=== PATIENT | male | born 1935 | race Caucasian/White ===

== ENCOUNTER 2018-03-11 09:13 | Inpatient (IN) | payer OTHER ==
[2018-03-11 09:35] LABS: Absolute Lymphocytes (CBC) 0.9 K/uL (0.7-4.9); Absolute Monocytes 0.8 K/uL (0.1-1.3); Absolute Neutrophil 8.7 K/uL (1.8-8.0); Basophils % 0.3 % (0-1.3); Eosinophils % 0.9 % (0-4.4); Hematocrit 36.5 % (39.6-49.0); Lymphocytes % 8.7 % (15.3-44.8); MCH 31.2 pg (27.0-35.0); MCV 91.6 fL (80-100); MPV 8.5 fL (7.6-11.3); Monocytes % 7.5 % (3.3-12.3); RBC Red Blood Cell Count 3.99 M/uL (4.33-5.43)
[2018-03-11 09:42] LABS: Protime INR 1.01
[2018-03-11] MEDS ORDERED: NA CHLORIDE 0.9% 500 ML ONE (09:44)
[2018-03-11] MEDS ORDERED: MORPHINE 4 MG/ML SYR ONE (09:46)
[2018-03-11] MEDS ORDERED: ONDANSETRON 4 MG/2 ML VIAL ONE (09:46)
[2018-03-11 09:53] LABS: Potassium 3.8 mmol/L (3.5-5.1)
--- NOTE | 2018-03-11 10:30 | RAD REPORT ---
EXAM DESCRIPTION: RAD - Hip Right 2 View - 03/11/2018 10:21 am CLINICAL HISTORY: Fall, hip pain COMPARISON: None. FINDINGS: AP and cross-table lateral portable views obtained. Transverse fracture of the right femor al neck is present. No extension into the intertrochanteric region on this examination. No AVN or foc al femoral head abnormality. No pathologic bone process identifiable. Partially imaged right hemipelv is shows no gross abnormality. No significant periarticular mass or hematoma. Arterial calcifications are present. IMPRESSION: Transverse fracture right femoral neck.
--- NOTE | 2018-03-11 10:31 | RAD REPORT ---
EXAM DESCRIPTION: RAD - Femur Right - 03/11/2018 10:22 am CLINICAL HISTORY: Fall, leg pain COMPARISON: Right hip same date FINDINGS: Right femoral neck fracture is again identified. This is further detailed on the separate right hip report. Intertrochanteric region of the femur is intact. The shaft and distal femur also without acute bone f inding. Knee joint effusion is not suspected. There are degenerative changes at the knee joint. No montelongo spicious soft tissue finding. Delete select No air or foreign body in the soft tissues. IMPRESSION: Right femoral neck fracture detailed on separate right hip report. Remainder of the right femur without acute finding.
--- NOTE | 2018-03-11 10:32 | RAD REPORT ---
EXAM DESCRIPTION: RAD - Pelvis - 03/11/2018 10:20 am CLINICAL HISTORY: Fall, hip pain COMPARISON: December 2011 pelvis TECHNIQUE: AP imaging of the pelvis was obtained. FINDINGS: Right femoral neck fracture is present. Findings are detailed on the right hip report. No fracture or acute finding involving the left hip joint or proximal left femur. Positioning was not optimal imaging the pelvis in an oblique plane. Superior and inferior pubic rami appear to be intact . No acute or pathologic process of the pelvis. SI joint degenerative changes minimal. Extensive post surgical change to the lumbar spine present, partially imaged. IMPRESSION: Right femoral neck fracture detailed separately on right hip report. Degenerative change with no acute finding in the pelvis.
--- NOTE | 2018-03-11 11:16 | RAD REPORT ---
EXAM DESCRIPTION: RAD - Chest Single View - 03/11/2018 10:29 am CLINICAL HISTORY: Fall, chest pain, shoulder pain COMPARISON: June 2012 TECHNIQUE: AP portable chest image was obtained 1020 hours . FINDINGS: No acute infiltrate or failure. Heart and vasculature are normal. No measurable pleural ef fusion and no pneumothorax. Small areas of nodularity in the upper left lung field are not clearly di fferent from 2012. The more shallow inspiration on the current portable examination accentuates the l tigist parenchymal findings compared to the PA view from 2012. Sternotomy wires are in place. Trachea is midline. No acute aortic finding. No gross bone abnormality seen. Rib detail can be better assessed with dedicated rib films if the patient is asymptomatic. IMPRESSION: No failure, infiltrate or acute cardiopulmonary finding. Small nodules in the left upper lung field are not clearly different from 2012.
--- NOTE | 2018-03-11 11:22 | ER ---
Nurse's Notes [facility] Name: Erik Lucia Jr Age: 82 yrs Sex: Male : 1935 Arrival Date: 03/11/2018 Time: 09:15 Bed 8 Private MD: Diagnosis: Right femoral neck fracture, non-displaced Presentation: 03/11 09:16 Presenting complaint: EMS states: Fell from standing position last night at around 11 ph pm, denies LOC, injury, or pain at that time, states that he was able to stand and ambulate. Reports that he woke around 8 this morning and could not stand or ambulate, c/o pain in R hip. Care prior to arrival: None. Mechanism of Injury: Fall from standing position. Trauma event details: [facility], Injury occurred: at home. Injury occurred: March 10, 2018. 09:16 Acuity: MARY 3 ph 09:16 Method Of Arrival: EMS: [facility] ph 09:34 Transition of care: patient was not received from another setting of care. Onset of ph symptoms was March 11, 2018. Risk Assessment: Do you want to hurt yourself or someone else? Patient reports no desire to harm self or others. Initial Sepsis Screen: Does the patient meet any 2 criteria? No. Patient's initial sepsis screen is negative. Does the patient have a suspected source of infection? No. Patient's initial sepsis screen is negative. Trauma Activation: Not Applicable Physician: ED Physician; Name: ; Notified At: ; Arrived At: Physician: General Surgeon; Name: ; Notified At: ; Arrived At: Physician: Radiology; Name: ; Notified At: ; Arrived At: Physician: Respiratory; Name: ; Notified At: ; Arrived At: Physician: Lab; Name: ; Notified At: ; Arrived At: Historical: - Allergies: 09:26 ciprofloxacin; ph 09:26 Levaquin; ph 09:26 Sulfa (Sulfonamide Antibiotics); ph - Home Meds: 09:26 testosterone transdermal transdermal [Active]; Metoprolol Tartrate Oral [Active]; ph amitriptyline Oral [Active]; - Immunization history: Last tetanus immunization: unknown. - Social history:: Smoking status: Patient/guardian denies using tobacco. - Ebola Screening: : No symptoms or risks identified at this time. - Family history:: not pertinent. - Hospitalizations: : No recent hospitalization is reported. Screenin:33 Abuse screen: Denies threats or abuse. Denies injuries from another. Tuberculosis ph screening: No symptoms or risk factors identified. 09:37 Nutritional screening: No deficits noted. Fall Risk Fall in past 12 months (25 points). ph No secondary diagnosis (0 pts). IV access (20 points). Ambulatory Aid- None/Bed Rest/Nurse Assist (0 pts). Gait- Normal/Bed Rest/Wheelchair (0 pts) Mental Status- Oriented to own ability (0 pts). Total Castro Fall Scale indicates High Risk Score (45 or more points). Fall prevention measures have been instituted. Side Rails Up X 2 Placed Close to Nursing Station Frequent Obs/Assessments Occuring As available patient and family educated on Fall Prevention Program and Strategies. Primary Survey: 09:31 A: Airway: patent. Breathing/Chest: Respiratory pattern: regular. Circulation: Pulses: ph palpable right dorsalis pedis artery and left dorsalis pedis artery. Disability Alert. 14:30 Reassessment Breathing/Chest Respiratory pattern Regular Circulation Color Fieldon ph Temperature Warm Dry Disability Alert. Secondary Survey: 09:33 HEENT: No deficits noted. Gastrointestinal: No deficits noted. : No signs and/or ph symptoms were reported regarding the genitourinary system. Musculoskeletal: R leg noted to be rotated outward. Assessment: 09:38 General: Appears in no apparent distress. comfortable, slender, well groomed, Behavior ph is calm, cooperative, appropriate for age. Pain: Complains of pain in right hip Pain radiates to right leg Pain currently is 0 out of 10 on a pain scale. at worst was 10 out of 10 on a pain scale. Neuro: Level of Consciousness is awake, alert, obeys commands. Cardiovascular: Capillary refill < 3 seconds Patient's skin is warm and dry. Respiratory: Airway is patent Respiratory effort is even, unlabored, Respiratory pattern is regular, symmetrical. GI: No signs and/or symptoms were reported involving the gastrointestinal system. Derm: Skin is fragile, is thin, Skin is pink, warm \T\ dry. Musculoskeletal: Circulation, motion, and sensation intact. Range of motion: limited in right hip R leg rotated outwards. 11:02 Reassessment: Patient appears in no apparent distress at this time. Patient and/or ph family updated on plan of care and expected duration. Pain level reassessed. Patient is alert, oriented x 3, equal unlabored respirations, skin warm/dry/pink. Pt resting comfortably, denies pain or nausea at this time, SO at bedside, awaiting Xray results. 14:15 Reassessment: Patient appears in no apparent distress at this time. Patient and/or ph family updated on plan of care and expected duration. Pain level reassessed. Patient is alert, oriented x 3, equal unlabored respirations, skin warm/dry/pink. Attempted to call report, receiving nurse unavailable. Vital Signs: 09:19 BP 120 / 81; Pulse 84; Resp 15; Temp 98.3(O); Pulse Ox 99% on R/A; Weight 51.26 kg; dh3 Pain 5/10; 10:35 BP 129 / 67; Pulse 76; Resp 14; Pulse Ox 97% on R/A; ph 11:07 BP 129 / 67; Pulse 79; Resp 15; Pulse Ox 100% ; sv 14:28 BP 109 / 77; Pulse 69; Resp 15; Temp 97.5; Pulse Ox 100% on R/A; ph [place] Coma Score: 09:34 Eye Response: spontaneous(4). Verbal Response: oriented(5). Motor Response: obeys ph commands(6). Total: 15. 10:35 Eye Response: spontaneous(4). Verbal Response: oriented(5). Motor Response: obeys ph commands(6). Total: 15. 14:28 Eye Response: spontaneous(4). Verbal Response: oriented(5). Motor Response: obeys ph commands(6). Total: 15. Trauma Score (Adult): 09:34 Eye Response: spontaneous(1); Verbal Response: oriented(1); Motor Response: obeys ph commands(2); Systolic BP: > 89 mm Hg(4); Respiratory Rate: 10 to 29 per min(4); [place] Score: 15; Trauma Score: 12 10:35 Eye Response: spontaneous(1); Verbal Response: oriented(1); Motor Response: obeys ph commands(2); Systolic BP: > 89 mm Hg(4); Respiratory Rate: 10 to 29 per min(4); Ambika Score: 15; Trauma Score: 12 14:28 Eye Response: spontaneous(1); Verbal Response: oriented(1); Motor Response: obeys ph commands(2); Systolic BP: > 89 mm Hg(4); Respiratory Rate: 10 to 29 per min(4); Ambika Score: 15; Trauma Score: 12 ED Course: 09:10 boiler tube reamer on. Pulse ox on. NIBP on. sv 09:15 Patient arrived in ED. ph 09:15 Missed attempt(s): 20 gauge in right forearm. Bleeding controlled, band aid applied, sv catheter tip intact. 09:15 Patient has correct armband on for positive identification. Placed in gown. Bed in low sv position. Side rails up X2. 09:17 Hammad León MD is Attending Physician. rn 09:19 Triage completed. ph 09:20 Initial lab(s) drawn, by me, sent to lab. Inserted saline lock: 20 gauge in right sv antecubital area, using aseptic technique. Blood collected. Flushed right antecubital with 5 ml normal saline. 09:30 EKG done, by ED staff, reviewed by Hammad León MD. dh3 09:35 Patient maintains SpO2 saturation greater than 95% on room air. Thermoregulation: warm ph blanket given to patient. 09:36 Patient has correct armband on for positive identification. Placed in gown. Bed in low ph position. Call light in reach. Side rails up X 1. Pulse ox on. NIBP on. Warm blanket given. 09:38 Arm band placed on. ph 09:40 Diamond Hampton, JEREL is Primary Nurse. ph 10:11 X-ray completed. Portable x-ray completed in exam room. Patient tolerated procedure ml well. 10:20 XRAY Pelvis In Process Unspecified. EDMS 10:20 XRAY Hip RIGHT 2 view In Process Unspecified. EDMS 10:20 XRAY Femur RIGHT In Process Unspecified. EDMS 10:30 Chest Single View In Process Unspecified. EDMS 11:21 Medhat Anne DO is Hospitalizing Provider. rn 13:44 Echocardiogram with Doppler done by photovoltaic technician. tc 14:30 No provider procedures requiring assistance completed. Patient admitted, IV remains in ph place. Administered Medications: 09:53 Drug: NS 0.9% 500 ml Route: IV; Rate: bolus; Site: right antecubital; ph 09:55 Drug: morphine 2 mg Route: IVP; Site: right antecubital; ph 09:55 Drug: Zofran 4 mg Route: IVP; Site: right antecubital; ph Intake: 09:34 PO: 0ml; Total: 0ml. ph 10:35 IV: 500ml (IV Fluid); Total: 500ml. ph 14:28 PO: 0ml; Total: 500ml. ph Output: 09:34 Urine: 0ml; Total: 0ml. ph 14:28 Urine: 0ml; Total: 0ml. ph Outcome: 11:22 Decision to Hospitalize by Provider. rn 14:59 Patient left the ED. gomez 14:59 Admitted to Med/surg accompanied by tech, family with patient, via stretcher, with ph chart, Report called to Bharati BELTRÁN 14:59 Condition: stable 14:59 Instructed on the need for admit. 14:59 Patient's length of stay was not longer than 2 hours. awaiting admit orders and room ph assignmentPatient's length of stay extended due to Signatures: Dispatcher [employer] Hannah Alva, RN Marielena Winkler Roman, MD MD rn Callis, Tiffany, metallurgical tester EKG Diamond Fritz RN RN ph Herrera, Katherine [facility]
--- NOTE | 2018-03-11 11:23 | EDPHYS ---
Physician Documentation [facility] Name: Erik Lucia Jr Age: 82 yrs Sex: Male : 1935 Arrival Date: 03/11/2018 Time: 09:15 Bed 8 Private MD: ED Physician Hammad León HPI: 03/11 09:39 This 82 yrs old Male presents to ER via EMS with complaints of Fall Injury. rn 09:39 Details of fall: The patient fell from an upright position, while walking. Onset: The rn symptoms/episode began/occurred last night. Associated injuries: The patient sustained right hip/leg. Severity of symptoms: At their worst the symptoms were moderate, in the emergency department the symptoms are unchanged. The patient has not experienced similar symptoms in the past. The patient has not recently seen a physician. Reports walking last night, got lightheaded, fell onto right hip, isolated injury, no head injury or LOC, got up and made way to bed, hurts more this AM. . Historical: - Allergies: 09:26 ciprofloxacin; ph 09:26 Levaquin; ph 09:26 Sulfa (Sulfonamide Antibiotics); ph - Home Meds: 09:26 testosterone transdermal transdermal [Active]; Metoprolol Tartrate Oral [Active]; ph amitriptyline Oral [Active]; - Immunization history: Last tetanus immunization: unknown. - Social history:: Smoking status: Patient/guardian denies using tobacco. - Ebola Screening: : No symptoms or risks identified at this time. - Family history:: not pertinent. - Hospitalizations: : No recent hospitalization is reported. ROS: 09:39 Constitutional: Negative for fever, chills, and weight loss, Eyes: Negative for injury, rn pain, redness, and discharge, Neck: Negative for injury, pain, and swelling, Cardiovascular: Negative for chest pain, palpitations, and edema, Respiratory: Negative for shortness of breath, cough, wheezing, and pleuritic chest pain, Abdomen/GI: Negative for abdominal pain, nausea, vomiting, diarrhea, and constipation, Back: Negative for injury and pain, MS/Extremity: + right hip pain Skin: Negative for injury, rash, and discoloration, Neuro: + generalized weakness Exam: 09:39 Constitutional: This is a well developed, well nourished patient who is awake, alert, rn and in no acute distress. Head/Face: Normocephalic, atraumatic. Eyes: Pupils equal round and reactive to light, extra-ocular motions intact. Lids and lashes normal. Conjunctiva and sclera are non-icteric and not injected. Cornea within normal limits. Periorbital areas with no swelling, redness, or edema. ENT: dry MM Neck: Trachea midline, no thyromegaly or masses palpated, and no cervical lymphadenopathy. Supple, full range of motion without nuchal rigidity, or vertebral point tenderness. No Meningismus. Cardiovascular: Regular rate and rhythm with a normal S1 and S2. No gallops, murmurs, or rubs. Normal PMI, no JVD. No pulse deficits. Respiratory: Lungs have equal breath sounds bilaterally, clear to auscultation and percussion. No rales, rhonchi or wheezes noted. No increased work of breathing, no retractions or nasal flaring. Abdomen/GI: Soft, non-tender, with normal bowel sounds. No distension or tympany. No guarding or rebound. No evidence of tenderness throughout. Back: No spinal tenderness. No costovertebral tenderness. Full range of motion. MS/ Extremity: Pulses equal, no cyanosis. + right leg shortened and externally rotated, + tenderness and pain with ROM or right hip Neuro: Awake and alert, GCS 15, oriented to person, place, and situation. Cranial nerves II-XII grossly intact. Motor strength 5/5 in all extremities. Sensory grossly intact. Vital Signs: 09:19 BP 120 / 81; Pulse 84; Resp 15; Temp 98.3(O); Pulse Ox 99% on R/A; Weight 51.26 kg; dh3 Pain 5/10; 10:35 BP 129 / 67; Pulse 76; Resp 14; Pulse Ox 97% on R/A; ph 11:07 BP 129 / 67; Pulse 79; Resp 15; Pulse Ox 100% ; sv 14:28 BP 109 / 77; Pulse 69; Resp 15; Temp 97.5; Pulse Ox 100% on R/A; ph Amb[place] Coma Score: 09:34 Eye Response: spontaneous(4). Verbal Response: oriented(5). Motor Response: obeys ph commands(6). Total: 15. 10:35 Eye Response: spontaneous(4). Verbal Response: oriented(5). Motor Response: obeys ph commands(6). Total: 15. 14:28 Eye Response: spontaneous(4). Verbal Response: oriented(5). Motor Response: obeys ph commands(6). Total: 15. Trauma Score (Adult): 09:34 Eye Response: spontaneous(1); Verbal Response: oriented(1); Motor Response: obeys ph commands(2); Systolic BP: > 89 mm Hg(4); Respiratory Rate: 10 to 29 per min(4); Ambika Score: 15; Trauma Score: 12 10:35 Eye Response: spontaneous(1); Verbal Response: oriented(1); Motor Response: obeys ph commands(2); Systolic BP: > 89 mm Hg(4); Respiratory Rate: 10 to 29 per min(4); Ambika Score: 15; Trauma Score: 12 14:28 Eye Response: spontaneous(1); Verbal Response: oriented(1); Motor Response: obeys ph commands(2); Systolic BP: > 89 mm Hg(4); Respiratory Rate: 10 to 29 per min(4); Forrest Score: 15; Trauma Score: 12 MDM: 09:17 Patient medically screened. rn 11:19 Differential diagnosis: contusion, fracture, sprain, strain. Data reviewed: vital rn signs, nurses notes, radiologic studies, plain films, and as a result, I will admit patient. Counseling: I had a detailed discussion with the patient and/or guardian regarding: the historical points, exam findings, and any diagnostic results supporting the discharge/admit diagnosis, lab results, radiology results, the need for further work-up and treatment in the hospital. Admission orders: after a detailed discussion of the patient's condition and case, the admit orders are written by me. ED course: Consulted Dr. rPater, will eval patient, will admit to Dr. Anne for femoral neck fracture. . 03/11 09:24 Order name: CBC with Diff; Complete Time: 10:13 rn 03/11 09:24 Order name: Basic Metabolic Panel; Complete Time: 10:13 rn 03/11 09:24 Order name: XRAY Pelvis; Complete Time: 11:17 rn 03/11 09:24 Order name: XRAY Hip RIGHT 2 view; Complete Time: 11:17 rn 03/11 09:24 Order name: Protime (+inr); Complete Time: 10:13 rn 03/11 09:24 Order name: Ptt, Activated; Complete Time: 10:13 rn 03/11 09:24 Order name: XRAY Femur RIGHT; Complete Time: 11:17 rn 03/11 09:24 Order name: IV Start; Complete Time: 09:29 rn 03/11 09:24 Order name: EKG; Complete Time: 09:25 rn 03/11 09:24 Order name: EKG - Nurse/Tech; Complete Time: 09:40 rn 03/11 10:21 Order name: Chest Single View; Complete Time: 11:17 EDMS Administered Medications: 09:53 Drug: NS 0.9% 500 ml Route: IV; Rate: bolus; Site: right antecubital; ph 09:55 Drug: morphine 2 mg Route: IVP; Site: right antecubital; ph 09:55 Drug: Zofran 4 mg Route: IVP; Site: right antecubital; ph Disposition: 03/11/18 11:22 Hospitalization ordered by Medhat Anne for Inpatient Admission. Preliminary diagnosis is Right femoral neck fracture, non-displaced. - Bed requested for Telemetry/MedSurg (Inpatient). - Status is Inpatient Admission. sv - Condition is Stable. - Problem is new. - Symptoms have improved. UTI on Admission? No Signatures: Dispatcher [employer] EDMS Hannah Mtz RN RN sv Woody, Diana, RN RN dw Nieto, Roman, MD MD rn Hall, Patricia, RN RN Corrections: (The following items were deleted from the chart) 13:48 11:22 Hospitalization Ordered by Medhat Anne DO for Inpatient Admission. Preliminary dw diagnosis is Right femoral neck fracture, non-displaced. Bed requested for Telemetry/MedSurg (Inpatient). Status is Inpatient Admission. Condition is Stable. Problem is new. Symptoms have improved. UTI on Admission? No. rn 14:59 13:48 03/11/2018 11:22 Hospitalization Ordered by Medhat Anne DO for Inpatient sv Admission. Preliminary diagnosis is Right femoral neck fracture, non-displaced. Bed requested for Telemetry/MedSurg (Inpatient). Status is Inpatient Admission. Condition is Stable. Problem is new. Symptoms have improved. UTI on Admission? No. dw
[2018-03-11] MEDS ORDERED: ONDANSETRON 4 MG/2 ML VIAL IV PRN (12:18)
[2018-03-11] MEDS ORDERED: ACETAMINOPHEN 500 MG TAB PO PRN (12:18)
[2018-03-11] MEDS ORDERED: METOPROLOL TARTRATE 5 MG/5 ML INJ IV PRN (12:18)
[2018-03-11] MEDS ORDERED: ACETAMINOPHEN 650MG/RECT SUPP PR PRN (12:18)
--- NOTE | 2018-03-11 12:47 | P.HP ---
Certification for Inpatient Patient admitted to: Inpatient With expected LOS: >2 Midnights Patient will require the following post-hospital care: Rehabilitation Practitioner: I am a practitioner with admitting privileges, knowledge of patient current condition, hospital course, and medical plan of care. Services: Services provided to patient in accordance with Admission requirements found in Title 42 Section 412.3 of the Code of Federal Regulations Patient History Date of Service: 03/11/18 Primary Care Provider: Dr. Finley; Nephrology-Dr. Mercado; Cardiology-Dr. Anderson Reason for admission: Fall History of Present Illness: 82-year-old male presented emergency room after a fall at home. Patient reports multiple falls over the last day. Patient reported some dizziness prior to falling. No syncopal episode noted. He denies any chest pain , shortness of breath, headaches. The patient fell yesterday afternoon. He was able to get up without any pain. Patient also had another fall through the night the was able to get up. This morning he fell again but had pain to the right hip region. Patient was sent to the ER for evaluation. Patient found to have right transverse femoral neck fracture. Patient with history of hypertension, chronic renal disease, solitary kidney with history of left nephrectomy related to renal cell carcinoma, and aortic valve replacement- bovine. In the ER patient evaluated. Patient found to have right femoral neck fracture. White count 10.6, hemoglobin 12.5. Sodium 141, potassium 3.8. BUN of 40, creatinine 2.8 with a GFR 20. Patient stable this time. Pain controlled. When I saw the patient ER, he appeared comfortable. was at bedside. Allergies ciprofloxacin [From Cipro] Allergy (Severe, Verified 12/15/11 15:11) Anaphylaxis levofloxacin [From Levaquin] Allergy (Severe, Verified 12/15/11 15:11) Anaphylaxis Home medications list reviewed: Yes Home Medications: Allopurinol [Zyloprim] 300 mg PO DAILY 12/15/11 Alprazolam [Alprazolam Odt] 2 mg PO PRN PRN 12/15/11 Calcium 540 mg PO BEDTIME 12/15/11 Cholecalciferol (Vitamin D3) [Vitamin D] 50,000 unit PO EVERY 7TH DAY 12/15/11 Cyanocobalamin [Vitamin B-12*] 1,000 mcg IJ EVERY 2 WEEKS 12/15/11 Folic Acid 2 mg PO DAILY 12/15/11 Gabapentin [Neurontin] 300 mg PO TID 12/15/11 Iron/FA/Vit B-Com W/C [Hemocyte Plus] 1 each PO DAILY 12/15/11 Lidocaine 5% Patch [Lidoderm 5% Patch] 1 patch TD PRN PRN 12/15/11 Magnesium [Magnesium Gluconate] 2 tab PO BEDTIME 12/15/11 Methotrexate Sodium [Trexall] 10 mg PO EVERY 7TH DAY 12/15/11 Metoprolol Succinate [Toprol Xl] 25 mg PO DAILY 12/15/11 Prasterone (Dhea)/Calcium Carb [Dhea 50 mg Tablet] 3 tab PO DAILY 12/15/11 Progesterone,Micronized [Prometrium] 100 mg PO 12/15/11 Testosterone [Androgel] 3.24 gm TD DAILY 12/15/11 - Past Medical/Surgical History Diabetic: No -: Hypertension -: Chronic renal disease -: History left nephrectomy secondary to renal cell carcinoma -: History aortic valve replacement-bovine -: Low testosterone -: Left nephrectomy -: Aortic valve replacement Psychosocial/ Personal History: The patient is of 64 years. He has 3 children. - Family History Mother -: Cancer (Kidney cancer) - Social History Smoking Status: Never smoker Alcohol use: No CD- Drugs: No Caffeine use: Yes Place of Residence: Home Review of Systems General: Weakness, As per HPI Eyes: Unremarkable ENT: Unremarkable Respiratory: Unremarkable Cardiovascular: Light Headedness, As per HPI Gastrointestinal: Unremarkable Genitourinary: Unremarkable Musculoskeletal: As per HPI Integumentary: Unremarkable Neurological: Unremarkable Lymphatics: Unremarkable Physical Examination - Physical Exam General: Alert, In no apparent distress, Oriented x3, Cooperative HEENT: Atraumatic Neck: Supple Respiratory: Clear to auscultation bilaterally, Normal air movement Cardiovascular: Normal pulses, Regular rate/rhythm Gastrointestinal: Normal bowel sounds, Soft and benign, Non-distended, No tenderness, No masses, No rebound, No guarding Musculoskeletal: No erythema, No tenderness, No warmth Integumentary: No tenderness/swelling, No erythema, No warmth, No cyanosis Neurological: Normal speech, Normal strength at 5/5 x4 extr, Normal tone, Normal affect - Studies Laboratory Data (last 24 hrs) 03/11/18 08:20: PT 11.9, INR 1.01, APTT 28.8 03/11/18 08:20: Sodium 141, Potassium 3.8, BUN 40 H, Creatinine 2.80 H, Glucose 131 H 03/11/18 08:20: WBC 10.6, Hgb 12.5 L, Hct 36.5 L, Plt Count 226 Assessment and Plan - Problems (Diagnosis) (1) Fall Current Visit: Yes Status: Acute Plan: Patient with right femoral neck fracture. Orthopedics consulted to further assess. Patient appears to be low risk for surgery. Will discuss with orthopedics. Will consult nephrology due to his chronic renal disease. Patient will be a good candidate for inpatient rehab after surgery. Qualifiers: Encounter type: initial encounter Qualified Code(s): W19.XXXA - Unspecified fall, initial encounter (2) Fracture of femoral neck, right Current Visit: Yes Status: Acute Plan: Orthopedics consulted. Await recommendations. Patient low risk for surgery. Patient seen by cardiology as an outpatient. Will check echocardiogram. Patient with history of aortic valve replacement-bovine. Patient with chronic renal disease with history of left nephrectomy secondary to renal cell carcinoma. Patient followed by nephrology. Will consult Nephrology to further monitor. Qualifiers: Encounter type: initial encounter Fracture type: closed Qualified Code(s) : S72.001A - Fracture of unspecified part of neck of right femur, initial encounter for closed fracture (3) Chronic renal disease Current Visit: Yes Status: Chronic Plan: Nephrology consulted. Overall stable. Will monitor closely. Qualifiers: Chronic kidney disease stage: stage 3 (moderate) Qualified Code(s): N18.3 - Chronic kidney disease, stage 3 (moderate) (4) H/O aortic valve replacement Current Visit: Yes Status: Chronic Plan: Will check echocardiogram. Otherwise stable. (5) History of nephrectomy Current Visit: Yes Status: Chronic Plan: Stable. Nephrology consulted. (6) Hypertension Current Visit: Yes Status: Chronic Plan: Will provide medication. Will obtain home medication. Qualifiers: Hypertension type: essential hypertension Qualified Code(s): I10 - Essential (primary) hypertension Discharge Plan: Other (Inpatient rehab) Plan to discharge in: Greater than 2 days - Advance Directives Does patient have a Living Will: No Does patient have a Durable POA for Healthcare: No - Code Status/Comfort Care Code Status Assessed: Yes (Patient full code.) Time Spent Managing Pts Care (In Minutes): 55
[2018-03-11 16:05] VITALS: BMI 18.1
[2018-03-11] MEDS: NA CHLORIDE 0.9% 1,000 ML IV SCH (16:17)
--- NOTE | 2018-03-11 17:43 | P.CNS ---
Date of Consult: 03/11/18 Reason for Consult: RIGHT FEMORAL NECK FRACTURE Requesting Physician: Medhat Guillen Primary Care Provider: Dr. Finley; Nephrology-Dr. Mercado; Cardiology-Dr. Anderson Chief Complaint: Fall History of Present Illness: THIS PATIENT FELL YESTERDAY BECAUSE OF DIZZINESS WHILE IN HOME USING A WALKER. HE DENIES HEAD INJURY AND LOSSO CONSCIOUSNESS. HE MANAGED TO GET INTO BED, BUT WAS TOO SORE TO USE HIS LEG THIS MORNING. BROUGHT TO ED, X-RAY SHOWS A MID- CERVICAL FRACTURE OF THE RIGHT FEMORAL NECK. HE HAS BEEN ADMITTED AND CLEARED FOR SURGERY BY DR. GUILLEN. Allergies ciprofloxacin [From Cipro] Allergy (Severe, Verified 03/11/18 15:49) Anaphylaxis levofloxacin [From Levaquin] Allergy (Severe, Verified 03/11/18 15:49) Anaphylaxis Sulfa (Sulfonamide Ant Allergy (Uncoded 03/11/18 15:49) Unknown Home Medications: Metoprolol Succinate [Toprol Xl] 25 mg PO DAILY 12/15/11 Amitriptyline [Elavil*] 1 tab PO BEDTIME 03/11/18 Testost Cypionate [Depo-Testosterone*] 1 ml IM Q7D 03/11/18 - Past Medical/Surgical History Diabetic: No -: Hypertension -: Chronic renal disease -: History left nephrectomy secondary to renal cell carcinoma -: History aortic valve replacement-bovine -: Low testosterone -: gastric ulcers -: Left nephrectomy -: Aortic valve replacement -: partial stomach removal -: multiple back surgeries -: bilateral feet sx Psychosocial/ Personal History: The patient is of 64 years. He has 3 children. - Family History Mother Medical History: Cancer - Social History Smoking Status: Never smoker Alcohol use: No CD- Drugs: No Caffeine use: Yes Place of Residence: Home Review of Systems 10-point ROS is otherwise unremarkable Physical Examination Temp Pulse Resp BP Pulse Ox 97.2 F 74 20 122/74 93 03/11/18 16:00 03/11/18 16:00 03/11/18 16:00 03/11/18 16:00 03/11/18 16:00 General: Alert, Oriented x3, Cooperative HEENT: Atraumatic, Normocephalic Neck: Supple Respiratory: Clear to auscultation bilaterally, Normal air movement Cardiovascular: Normal pulses, Regular rate/rhythm Capillary refill: <2 Seconds Gastrointestinal: Normal bowel sounds, Soft and benign Musculoskeletal: Tenderness (RIGHT HIP PAINFUL WITH MINOR MOVEMENT OF BODY OR LEG) Integumentary: No rashes, No breakdown, No significant lesion Neurological: Normal speech, Sensation intact, Normal affect Urinary: Denny catheter External genitalia: Deferred Rectal: Deferred Laboratory Data (last 24 hrs) 03/11/18 08:20: PT 11.9, INR 1.01, APTT 28.8 03/11/18 08:20: Sodium 141, Potassium 3.8, BUN 40 H, Creatinine 2.80 H, Glucose 131 H 03/11/18 08:20: WBC 10.6, Hgb 12.5 L, Hct 36.5 L, Plt Count 226 Imagings Data: EXAM DESCRIPTION: RAD - Hip Right 2 View - 03/11/2018 10:21 am CLINICAL HISTORY: Fall, hip pain COMPARISON: None. FINDINGS: AP and cross-table lateral portable views obtained. Transverse fracture of the right femoral neck is present. No extension into the intertrochanteric region on this examination. No AVN or focal femoral head abnormality. No pathologic bone process identifiable. Partially imaged right hemipelvis shows no gross abnormality. No significant periarticular mass or hematoma. Arterial calcifications are present. IMPRESSION: Transverse fracture right femoral neck. - Problems (1) Fracture of femoral neck, right Onset Date: ~03/10/18 Current Visit: Yes Status: Acute Plan: PATIENT HAS BEEN SCHEDULED FOR INSERTION OF RIGHT HIP UNIPOLAR HIP PROSTHESIS ~ 12N 03/12/18. RISKS AND BENEFITS HAVE BEEN DISCUSSED AT LENGTH WITH ALL QUESTIONS ANSWERED. THE PATIENT HAS ELECTED TO PROCEED WITH SURGERY. Qualifiers: Encounter type: initial encounter Fracture type: closed Qualified Code(s) : S72.001A - Fracture of unspecified part of neck of right femur, initial encounter for closed fracture
--- NOTE | 2018-03-11 18:14 | ECHO ---
HEIGHT: 5 ft 8 in WEIGHT: 119 lb 0 oz DATE OF STUDY: 03/11/[address]: Medhat Anne DO 2-DIMENSIONAL: YES M.MODE: YES DOPPLER: YES COLOR FLOW: YES TDS: YES PORTABLE: YES DEFINITY: BUBBLE STUDY: DIAGNOSIS: HISTORY OF AORTIC VALVE REPLACEMENT - BOVINE CARDIAC HISTORY: CATHERIZATION: NO SURGERY: YES PROSTHETIC VALVE: YES PACEMAKER: NO MEASUREMENTS (cm) DIASTOLIC (NORMALS) SYSTOLIC (NORMALS) IVSd 0.7 (0.6-1.2) LA Diam 2.3 (1.9-4.0) LVEF 65% LVIDd 2.8 (3.5-5.7) LVIDs 1.8 (2.0-3.5) %FS 34% LVPWd 0.8 (0.6-1.2) Ao Diam 2.7 (2.0-3.7) 2 DIMENSIONAL ASSESSMENT: RIGHT ATRIUM: NORMAL LEFT ATRIUM: NORMAL RIGHT VENTRICLE: NORMAL LEFT VENTRICLE: NORMAL TRICUSPID VALVE: NORMAL MITRAL VALVE: MITRAL ANNULAR CALCIFICATION PULMONIC VALVE: NORMAL AORTIC VALVE: SCLEROSIS PERICARDIAL EFFUSION: NONE AORTIC ROOT: NORMAL LEFT VENTRICULAR WALL MOTION: NORMAL DOPPLER/COLOR FLOW: IMPAIRED LEFT VENTRICULAR RELAXATION. NO AORTIC STENOSIS OR AORTIC REGURGITATION. COMMENTS: NORMAL LEFT VENTRICULAR EJECTION FRACTION. MITRAL ANNULAR CALCIFICATION. AORTIC SCLEROSIS WITH NO AORTIC STENOSIS OR AORTIC REGURGITATION. IMPAIRED LEFT VENTRICULAR RELAXATION. TECHNOLOGIST: FLAKITO BOLAND
--- NOTE | 2018-03-11 18:48 | EKG ---
Test Date: 2018-03-11 Test Time: 09:41:26 [place] Operator: SHAYY MEASUREMENT RESULTS: Intervals: Rate: 79 WY: 198 QRSD: 144 QT: 384 QTc: 440 [place]: P: 64 WY: 198 QRS: -79 T: 66 INTERPRETIVE STATEMENTS: Normal sinus rhythm Right bundle branch block Left anterior fascicular block Bifascicular block Abnormal ECG Compared to ECG 12/15/2011 09:33:21 Sinus tachycardia no longer present Bifascicular block still present Electronically Signed On 03-11-18 18:47:24 CDT by Nawaf Nelson
[2018-03-11] MEDS ORDERED: TRANEXAMIC ACID 1,000 MG in NA CHLORIDE 0.9% 50 ML IV SCH (19:00)
[2018-03-11] MEDS ORDERED: AMITRIPTYLINE 25 MG TAB PO PRN (22:29)
--- NOTE | 2018-03-11 22:36 | CON ---
Date of Consultation: 03/11/2018 Chief Complaint: Chronic kidney disease, status post fall. Chief Complaint: Chronic kidney disease. History Of Present Illness: The patient has multiple medical problems including history of hypertensive kidney disease, benign nephrosclerosis. Baseline creatinine ranging from 2.6 to 3.0. The patient presented to the hospital because of status post fall. He was found to have hip fracture. Nephrology consultation is requested for chronic kidney disease stage 4. The patient reports multiple falls over the last several days. The patient was filling dizzy and had 3 syncopal episodes. He denies chest pain, shortness of breath, headache. The patient fell yesterday afternoon. He was complaining of severe pain. He denies nonsteroidal anti-inflammatory medication. He was referred to emergency room for evaluation. He was found to have right transverse femoral neck fracture. The patient has history of hypertension, chronic kidney disease, solitary kidney. He previously underwent left nephrectomy because of renal cell carcinoma. He has history of aortic jake disease and underwent aortic valve replacement. The patient was found to have elevated white count up to 10.6. Electrolytes as follow; sodium 141, potassium 3.8, BUN 40, creatinine 2.8. Review of Systems: Constitutional: Denies fever, chills. Eyes: Denies vision changes. Ears, Nose, Mouth, and Throat: Denies sore throat or earache. Respiratory: Denies PND or orthopnea. Cardiovascular: Denies chest pain or palpitation. GI: Denies nausea or vomiting> : Denies dysuria or hematuria. Musculoskeletal: Complaining of some muscle aches. Denies active gout, was complaining of dizziness and unsteady gait. All other systems reviewed and all are negative. Past Medical History: Hypertension, chronic kidney disease stage 4, solitary kidney status post left nephrectomy secondary to renal cell carcinoma, aortic valve replacement, left nephrectomy, rheumatoid arthritis. Family History: Mother had a kidney cancer. Social History: Denies tobacco, alcohol, or illicit drugs. Physical Examination: General: The patient is awake, alert, follows commands. HEENT: Anicteric sclerae. Eyes EOMI. Oral mucosa moist. No pallor. Neck: Supple. No JVD. No bruits. Lungs: Clear to auscultation bilaterally. Heart: S1, S2. Regular rate and rhythm. Abdomen: Soft, benign, nontender. No rebound, no guarding. Extremities: No edema. Laboratory Data: Sodium 141, potassium 3.8, BUN 40, creatinine 2.8, glucose 131. Hemoglobin 12.2, platelet count 226, WBC 10.6. Impression And Plan: 1. Status post fall. The patient developed right femoral neck fracture. Orthopedic consult is pending. 2. Chronic kidney disease stage 4. Renal function appears to be at baseline. Continue adequate hydration. The patient may require IV fluids. The patient has history of left nephrectomy secondary to renal cell carcinoma. Complicated history with benign nephrosclerosis. Continue to monitor blood pressure and avoid nonsteroidal anti-inflammatory medication. 3. Chronic kidney wound. Avoid nephrotoxic medication. Monitor blood pressure closely. WIN/SEPIDEH Voice ID: [id number] Report ID: [id number] MTDD
[2018-03-12] MEDS: MORPHINE 2 MG/ML SYR IV PRN (03:40)
[2018-03-12] MEDS: NA CHLORIDE 0.9% 1,000 ML IV SCH ×2 (03:41→16:54)
[2018-03-12 05:26] LABS: Absolute Lymphocytes (CBC) 0.8 K/uL (0.7-4.9); Absolute Monocytes 0.6 K/uL (0.1-1.3); Absolute Neutrophil 4.6 K/uL (1.8-8.0); Basophils % 0.5 % (0-1.3); Eosinophils % 3.6 % (0-4.4); Hematocrit 30.6 % (39.6-49.0); Lymphocytes % 13.1 % (15.3-44.8); MCV 91.1 fL (80-100); MPV 8.5 fL (7.6-11.3); Monocytes % 8.9 % (3.3-12.3); RBC Red Blood Cell Count 3.36 M/uL (4.33-5.43)
[2018-03-12 05:40] LABS: Magnesium 1.9 mg/dL (1.8-2.4); Potassium 3.9 mmol/L (3.5-5.1)
[2018-03-12] MEDS: PANTOPRAZOLE 40MG TABLET PO SCH (06:30)
--- NOTE | 2018-03-12 07:44 | P.PN ---
Subjective Date of Service: 03/12/18 Primary Care Provider: Dr. Finley; Nephrology-Dr. Mercado; Cardiology-Dr. Anderson Chief Complaint: Fall Subjective: Other (Patient stable this time. Pain well controlled) Physical Examination - Vital Signs Temperature: 99.2 F Blood Pressure: 100/65 Pulse: 95 Respirations: 18 Pulse Ox (%): 96 - Physical Exam General: Alert, In no apparent distress, Cooperative HEENT: Atraumatic Neck: Supple Respiratory: Clear to auscultation bilaterally, Normal air movement Cardiovascular: Normal pulses, Regular rate/rhythm Gastrointestinal: Normal bowel sounds, Soft and benign, Non-distended, No tenderness, No masses, No rebound, No guarding Musculoskeletal: No erythema, No tenderness, No warmth Integumentary: No erythema, No warmth, No cyanosis Neurological: Normal speech, Normal strength at 5/5 x4 extr, Normal tone, Normal affect - Studies Laboratory Data (last 24 hrs) 03/11/18 08:20: PT 11.9, INR 1.01, APTT 28.8 03/11/18 08:20: Sodium 141, Potassium 3.8, BUN 40 H, Creatinine 2.80 H, Glucose 131 H 03/11/18 08:20: WBC 10.6, Hgb 12.5 L, Hct 36.5 L, Plt Count 226 Medications List Reviewed: Yes Assessment & Plan - Problems (Diagnosis) (1) Fall Current Visit: Yes Status: Acute Plan: Patient with right femoral neck fracture. Spoke with orthopedics. Patient NPO for surgery today. Will continue with pain medication. Nephrology consulted to monitor his chronic renal disease. Patient will be a good candidate for inpatient rehab after surgery. I will turn the service over to Dr. Ramirez who will help cover. I will go over the plan of care with him. Qualifiers: Encounter type: initial encounter Qualified Code(s): W19.XXXA - Unspecified fall, initial encounter (2) Fracture of femoral neck, right Onset Date: ~03/10/18 Current Visit: Yes Status: Acute Plan: Orthopedics plans for surgery today. Echocardiogram unremarkable. Patient low risk for surgery. Patient with history of aortic valve replacement-bovine. Patient with chronic renal disease with history of left nephrectomy secondary to renal cell carcinoma. Patient followed by nephrology. Nephrology on the case. Qualifiers: Encounter type: initial encounter Fracture type: closed Qualified Code(s) : S72.001A - Fracture of unspecified part of neck of right femur, initial encounter for closed fracture (3) Chronic renal disease Current Visit: Yes Status: Chronic Plan: Nephrology consulted. Overall stable. Will monitor closely. Qualifiers: Chronic kidney disease stage: stage 3 (moderate) Qualified Code(s): N18.3 - Chronic kidney disease, stage 3 (moderate) (4) H/O aortic valve replacement Current Visit: Yes Status: Chronic Plan: Echocardiogram unremarkable. (5) History of nephrectomy Current Visit: Yes Status: Chronic Plan: Stable. Nephrology consulted. (6) Hypertension Current Visit: Yes Status: Chronic Plan: Will continue with medication. Qualifiers: Hypertension type: essential hypertension Qualified Code(s): I10 - Essential (primary) hypertension Discharge Plan: Other (Inpatient rehab) Plan to discharge in: Greater than 2 days Time Spent Managing Pts Care (In Minutes): 55
[2018-03-12] MEDS: METOPROLOL XL 25 MG TAB PO SCH (08:03)
[2018-03-12 10:21] LABS: Urine Appearance CLEAR; Urine Bilirubin NEGATIVE (NEG); Urine Blood 1+ (NEG); Urine Color YELLOW; Urine Glucose NEGATIVE (NEG); Urine Protein 1+ (NEG); Urine Specific Gravity 1.015 (1.005-1.030); Urine Urobilinogen 0.2 mg/dL (0.2-1.0); Urine pH 5.5 (5.0-7.0)
[2018-03-12 10:22] LABS: Urine Microscopic Reflex ORDER UMIC
[2018-03-12 10:34] LABS: Urine Bacteria <20 /HPF (NONE SEEN); Urine RBC <5 /HPF (NONE SEEN)
[2018-03-12 10:35] LABS: Urine Culture Reflex Order NOT NEEDED
[2018-03-12] MEDS ORDERED: LIDOCAINE 2% MPF 5 ML VIAL ONE (12:11)
[2018-03-12] MEDS ORDERED: ROCURONIUM 50 MG/5 ML VIAL IV ONE (12:11)
[2018-03-12] MEDS ORDERED: FENTANYL CITR 250 MCG/5 ML ONE (12:11)
[2018-03-12] MEDS ORDERED: PROPOFOL 200 MG/20 ML VIAL IV ONE (12:11)
[2018-03-12] MEDS ORDERED: Ringers Lactate 1,000 ML IV ONE ×2 (12:13→15:00)
[2018-03-12] MEDS ORDERED: CEFAZOLIN/SWI 1gm 1 GM/10 ML SYR ONE (12:33)
[2018-03-12] MEDS ORDERED: EPHEDRINE SULF 50 MG/ML SYR ONE (12:57)
[2018-03-12] MEDS ORDERED: Phenylephrine HCl 10 MG/ML 1 ML VIAL ONE (13:27)
[2018-03-12] MEDS ORDERED: ALBUMIN HUM 5% 250 ML IV ONE (13:40)
[2018-03-12] MEDS: BUPIVACA 0.25%/EPI 0.0005%/PF 30 ML VIAL ONE ×2 (13:59→15:35)
--- NOTE | 2018-03-12 16:37 | P.BOP ---
Preoperative diagnosis: CLOSED FRACTURE RIGHT PROXIMAL FEMORAL NECK Postoperative diagnosis: SAME Primary procedure: INSERTION OF CEMENTED UNIPOLAR HIP PROSTHESIS RIGHT HIP Monkey Breeder: Jordon Mathur Estimated blood loss: 250 mL Specimen: HIP BALL AND SHARDS OF CALCAR Findings: MID-CERVICAL FRACTURE Anesthesia: General Complications: None Implants: 54MM DIANNA METAL HIP BALL, -3mm NECK, SIZE 5 STANDARD CEMENTED STEM Fluids & blood products: INJ. 30 mL 0.25% MARCAINE w/EPI INTO INCISION Transferred to: Recovery Room
--- NOTE | 2018-03-12 16:39 | RAD REPORT ---
EXAM DESCRIPTION: RAD - Hip Right 2 View - 03/12/2018 4:32 pm CLINICAL HISTORY: Post R hip Right hip replacement COMPARISON: Hip Right 2 View dated 03/11/2018; Hip Right 2 View dated 09/28/2003 FINDINGS: Right total hip arthroplasty are noted. No unexpected finding. Skin vernon are seen later ally. Small amount subcutaneous air seen. IMPRESSION: Right total hip arthroplasty.
[2018-03-12] MEDS: CEFAZOLIN/SWI 1gm 1 GM/10 ML SYR IV SCH (20:20)
[2018-03-12] MEDS: AMITRIPTYLINE 25 MG TAB PO SCH (20:21)
[2018-03-12] MEDS: ENSURE ENLIVE 237 ML CAN PO SCH (21:00)
[2018-03-12] MEDS: HYDROCODONE/APAP 7.5/325 MG TAB PO PRN (21:28)
--- NOTE | 2018-03-12 23:58 | PN ---
Date of Progress Note: 03/12/2018 Chief Complaint: Chronic kidney disease. History Of Present Illness: Prerenal azotemia. The patient was started on IV fluids, and renal function gradually improved. The patient has underlying kidney disease, stage 3. Creatinine level has improved from 2.8 to 2.0. There is no evidence of hyperkalemia. The patient has nonoliguric urine output. The patient is admitted to the hospital after he sustained fall and today he underwent surgery. Review of Systems: Denies fever or chills. Physical Examination: Lungs: Clear to auscultation bilaterally. Heart: S1, S2. Abdomen: Soft, benign. Extremities: No edema. Impression And Plan: 1. Volume depletion, prerenal azotemia. Continue IV fluids. Advance diet as tolerated. 2. Status post fall. No evidence of rhabdomyolysis. 3. Hypertension. Continue blood pressure medication. 4. Anemia. Hemoglobin is ranging from 10.7 to 12.5. Monitor hemoglobin level and plan blood transfusion as needed. WIN/SEPIDEH Voice ID: [id number] Report ID: [id number] MIMI
[2018-03-13] MEDS: NA CHLORIDE 0.9% 1,000 ML IV SCH (04:03)
[2018-03-13] MEDS: HYDROCODONE/APAP 7.5/325 MG TAB PO PRN ×2 (04:03→21:27)
[2018-03-13 04:58] LABS: Absolute Lymphocytes (CBC) 0.6 K/uL (0.7-4.9); Absolute Monocytes 0.7 K/uL (0.1-1.3); Absolute Neutrophil 5.8 K/uL (1.8-8.0); Basophils % 0.2 % (0-1.3); Eosinophils % 0.7 % (0-4.4); Hematocrit 27.5 % (39.6-49.0); Lymphocytes % 8.2 % (15.3-44.8); MCH 32.5 pg (27.0-35.0); MCV 92.4 fL (80-100); MPV 9.1 fL (7.6-11.3); Monocytes % 9.4 % (3.3-12.3); RBC Red Blood Cell Count 2.98 M/uL (4.33-5.43)
[2018-03-13 05:04] LABS: Magnesium 1.5 mg/dL (1.8-2.4)
[2018-03-13] MEDS: CEFAZOLIN/SWI 1gm 1 GM/10 ML SYR IV SCH (05:06)
[2018-03-13] MEDS: MORPHINE 2 MG/ML SYR IV PRN (05:29)
[2018-03-13] MEDS: PANTOPRAZOLE 40MG TABLET PO SCH (05:30)
[2018-03-13] MEDS ORDERED: Magnesium Sulfate 2gm IVPB 2 G/50 ML BAG IV ONE (06:30)
[2018-03-13] MEDS: ENSURE ENLIVE 237 ML CAN PO SCH ×2 (08:18→21:28)
[2018-03-13] MEDS: METOPROLOL XL 25 MG TAB PO SCH (08:19)
--- NOTE | 2018-03-13 09:33 | P.PN ---
Subjective Date of Service: 03/13/18 Primary Care Provider: Dr. Finley; Nephrology-Dr. Mercado; Cardiology-Dr. Anderson Chief Complaint: Status post prior right hip repair Subjective: Improving (Patient is doing well no complaints no significant discomfort eating and drinking) Review of Systems Unremarkable Physical Examination - Vital Signs Temperature: 99.7 F Blood Pressure: 126/84 Pulse: 95 Respirations: 16 Pulse Ox (%): 97 - Physical Exam General: Alert, Oriented x3 Neck: Supple Respiratory: Clear to auscultation bilaterally Cardiovascular: No edema, Normal S1 S2 Gastrointestinal: Normal bowel sounds, Soft and benign - Studies Medications List Reviewed: Yes Assessment & Plan - Problems (Diagnosis) (1) Fracture of femoral neck, right Onset Date: ~03/10/18 Current Visit: Yes Status: Acute Plan: Patient is 82 years of age admitted after a fall he had sustained a fracture of his right femoral neck and is doing better as been repaired no new complaints Dc IV fluids will be evaluated and transferred to the rehab unit Qualifiers: Encounter type: subsequent encounter Fracture type: closed
--- NOTE | 2018-03-13 14:46 | P.PN ---
Date of Service: 03/13/18 (POD#1) S: PATIENT COMFORTABLE, UP WITH PT THIS AM. NOTES SOME HALLUCINATIONS, HAS NOTED CONFUSION AT HOME, BUT NO HALLUCINATIONS. O: VSS, MAX TEMP ELEVATION LOW GRADE 99.7; HGB 9.7, DOWN FROM POST-OP 10.7; INCISION CLEAN AND DRY. NV EXAM INTACT, HANH'S NEGATIVE. ABDUCTION PILLOW STRAPS LOOSENED. A: REASONABLE PROGRESS FOR AGE AND CONDITION POST-OP DAY 1 P: MOBILIZE TOLERATED, MONITOR HGB.
[2018-03-13] MEDS: AMITRIPTYLINE 25 MG TAB PO SCH (21:27)
[2018-03-13] MEDS: HEPARIN 5000 UNIT/ML 1 ML VIAL SQ SCH (21:51)
--- NOTE | 2018-03-14 01:04 | PN ---
Date of Progress Note: 03/13/2018 Chief Complaint: Chronic kidney disease. History Of Present Illness: The patient presented to the hospital because of generalized weakness an d shortness of breath. He was found to have hip fracture and he underwent surgery. The patient was complaining of some dizziness and recent history of fall. The patient was found to have hypomagnesem ia. Today, magnesium is 1.5. Prerenal azotemia is responding to IV fluids. Creatinine on arrival to the hospital was 2.8 and impr lorena with IV fluids to 2.2. The patient has history of chronic kidney disease, stage 3 advancing to stage 4. Review of Systems: The patient is feeling better today. Denies PND, orthopnea. Physical Examination: Lungs: Clear to auscultation bilaterally. Heart: S1, S2. Abdomen: Soft, benign. Extremities: No edema. Laboratory Data: Sodium 141, potassium 4.0, chloride 114, CO2 is 20, BUN 29, creatinine 2.2, glucose 122, calcium 8.6, magnesium 1.5. Impression And Plan: 1.Hypomagnesemia. Magnesium replacement ordered. 2.Mild metabolic acidosis. Continue sodium bicarbonate tablets. 3.Prerenal azotemia, resolved. 4.Hypertensive heart and kidney disease. Continue blood pressure medication. Blood pressure is improving. Pain is adequately controlled. WIN/MODL Voice ID: [id number] Report ID: [id number]
[2018-03-14] MEDS: HYDROCODONE/APAP 7.5/325 MG TAB PO PRN (03:59)
[2018-03-14 04:59] LABS: Absolute Lymphocytes (CBC) 0.7 K/uL (0.7-4.9); Absolute Monocytes 0.8 K/uL (0.1-1.3); Absolute Neutrophil 5.4 K/uL (1.8-8.0); Basophils % 0.3 % (0-1.3); Eosinophils % 1.5 % (0-4.4); Hematocrit 25.1 % (39.6-49.0); Lymphocytes % 10.1 % (15.3-44.8); MCH 31.1 pg (27.0-35.0); MCV 91.4 fL (80-100); MPV 8.9 fL (7.6-11.3); Monocytes % 10.8 % (3.3-12.3); RBC Red Blood Cell Count 2.75 M/uL (4.33-5.43)
[2018-03-14 05:18] LABS: Magnesium 2.3 mg/dL (1.8-2.4); Potassium 3.4 mmol/L (3.5-5.1)
[2018-03-14] MEDS: PANTOPRAZOLE 40MG TABLET PO SCH (06:31)
[2018-03-14] MEDS ORDERED: LORazepam 2 MG/ML VIAL IV ONE ×2 (07:15→07:16)
--- NOTE | 2018-03-14 07:18 | P.PN ---
Date of Service: 03/14/18 Notified by nursing staff the patient is agitated. He is pulling at things and not want to stay in bed after hip surgery. Will given 1 dose of Ativan 0.5 mg IV push as he is refusing anything orally. Hopefully, this will help him relax.
[2018-03-14] MEDS: ENSURE ENLIVE 237 ML CAN PO SCH ×2 (08:32→20:25)
[2018-03-14] MEDS: HEPARIN 5000 UNIT/ML 1 ML VIAL SQ SCH (08:33)
[2018-03-14] MEDS ORDERED: HALOPERIDOL LACT 5 MG/ML INJ IV PRN (10:16)
[2018-03-14] MEDS ORDERED: ENOXAPARIN 40 MG/0.4 ML SQ SCH (10:17)
--- NOTE | 2018-03-14 10:18 | P.PN ---
Subjective Date of Service: 03/14/18 Primary Care Provider: Dr. Finley; Nephrology-Dr. Mercado; Cardiology-Dr. Anderson Chief Complaint: Status post prior right hip repair Patient became agitated last night requiring some sedation according to the he is not agitated at home no significant pain Review of Systems is unable to be obtained Physical Examination - Vital Signs Temperature: 97.8 F Blood Pressure: 111/61 Pulse: 80 Respirations: 12 Pulse Ox (%): 98 - Physical Exam General: Unresponsive HEENT: Atraumatic Neck: Supple Respiratory: Clear to auscultation bilaterally Cardiovascular: No edema, Regular rate/rhythm - Studies Medications List Reviewed: Yes Assessment & Plan - Problems (Diagnosis) (1) Fracture of femoral neck, right Onset Date: ~03/10/18 Current Visit: Yes Status: Acute Plan: Patient is status post fracture of the right neck currently stable patient is mildly anemic there has been slight decline in his hemoglobin also has baseline renal insert renal function is improving change to Lovenox Dc a subcu heparin Qualifiers: Encounter type: subsequent encounter Fracture type: closed (2) Delirium Current Visit: Yes Status: Acute Plan: Use IV Haldol as needed
[2018-03-14] MEDS: METOPROLOL XL 25 MG TAB PO SCH (10:35)
[2018-03-14] MEDS: AMITRIPTYLINE 25 MG TAB PO SCH (20:24)
--- NOTE | 2018-03-14 22:33 | PN ---
Date of Progress Note: 03/14/2018 Chief Complaint: Chronic kidney disease stage 3. History Of Present Illness: The patient developed prerenal azotemia. He completed IV fluids. Renal function stabilized. Creatinine level is 2.10. On arrival to the hospital, creatinine was 2.8. Th e patient underwent surgery for hip fracture. Review of Systems: Denies fever or chills. Physical Examination: Lungs: Clear to auscultation bilaterally. Heart: S1, S2. Abdomen: Soft, benign. Extremities: No edema. Impression And Plan: 1.Chronic kidney disease stage 3. Continue renal diet. Monitor electrolytes closely. 2.Mild hypokalemia, replacement as needed. 3.Hypomagnesemia, treated. Magnesium level improved from 1.5 to 2.4. 4.Hypertension. Blood pressure in acceptable control. Hold blood pressure medication if systolic b lood pressure is below 110. WIN/SEPIDEH Voice ID: [id number] Report ID: [id number]
[2018-03-15] MEDS: PANTOPRAZOLE 40MG TABLET PO SCH (05:52)
[2018-03-15 08:17] LABS: Absolute Lymphocytes (CBC) 0.6 K/uL (0.7-4.9); Absolute Monocytes 0.7 K/uL (0.1-1.3); Absolute Neutrophil 4.4 K/uL (1.8-8.0); Basophils % 0.3 % (0-1.3); Eosinophils % 2.2 % (0-4.4); Hematocrit 22.9 % (39.6-49.0); Lymphocytes % 10.8 % (15.3-44.8); MCH 31.3 pg (27.0-35.0); MPV 8.2 fL (7.6-11.3); Monocytes % 11.5 % (3.3-12.3); RBC Red Blood Cell Count 2.52 M/uL (4.33-5.43)
[2018-03-15 08:29] LABS: Magnesium 2.1 mg/dL (1.8-2.4); Potassium 3.6 mmol/L (3.5-5.1)
--- NOTE | 2018-03-15 08:54 | P.PN ---
Subjective Date of Service: 03/15/18 Primary Care Provider: Dr. Finley; Nephrology-Dr. Mercado; Cardiology-Dr. Anderson Chief Complaint: Status post prior right hip repair Subjective: Other (Patient improving. Patient with hallucinations this morning. at bedside.) Physical Examination - Vital Signs Temperature: 99.0 F Blood Pressure: 111/64 Pulse: 80 Respirations: 18 Pulse Ox (%): 98 - Physical Exam General: Alert, Cooperative, Other (Patient cooperative but hallucinating.) HEENT: Atraumatic Neck: Supple Respiratory: Clear to auscultation bilaterally, Normal air movement Cardiovascular: Normal pulses, Regular rate/rhythm Gastrointestinal: Normal bowel sounds, Soft and benign, Non-distended, No tenderness, No masses, No rebound, No guarding Musculoskeletal: No erythema, No tenderness, No warmth Integumentary: No erythema, No warmth, No cyanosis Neurological: Normal speech, Normal strength at 5/5 x4 extr, Normal tone, Normal affect - Studies Medications List Reviewed: Yes Assessment & Plan - Problems (Diagnosis) (1) Fall Onset Date: 03/12/18 Current Visit: Yes Status: Acute Plan: Patient status post surgery. Will have physical therapy assess ambulation. Patient may be a good candidate for inpatient rehab will need to assess. Patient with hallucinations likely from anesthesia. Will monitor for sundowning. Will limit pain medication and anxiolytics. Care discussed with . She understands. This has happened in the past with prior surgeries. Qualifiers: Encounter type: initial encounter Qualified Code(s): W19.XXXA - Unspecified fall, initial encounter (2) Fracture of femoral neck, right Onset Date: ~03/10/18 Current Visit: Yes Status: Acute Plan: Status post surgery. Continue as above. Will check to see if the patient can qualify for inpatient rehab. Qualifiers: Encounter type: subsequent encounter Fracture type: closed (3) Chronic renal disease Onset Date: 03/12/18 Current Visit: Yes Status: Chronic Plan: Nephrology consulted. Renal function stable. Will monitor closely. Qualifiers: Chronic kidney disease stage: stage 3 (moderate) Qualified Code(s): N18.3 - Chronic kidney disease, stage 3 (moderate) (4) H/O aortic valve replacement Current Visit: Yes Status: Chronic Plan: Echocardiogram unremarkable. (5) History of nephrectomy Current Visit: Yes Status: Chronic Plan: Stable. Nephrology consulted. (6) Hypertension Onset Date: 03/12/18 Current Visit: Yes Status: Chronic Plan: Will continue with medication. Qualifiers: Hypertension type: essential hypertension Qualified Code(s): I10 - Essential (primary) hypertension (7) Anemia Current Visit: Yes Status: Acute Plan: Status post surgery. Will check for iron deficiency. Patient may require supplementation. If hemoglobin drops below 7 the patient may require transfusion. Qualifiers: Anemia type: other cause (8) Delirium Current Visit: Yes Status: Acute Plan: Patient with delirium likely from post anesthesia. Will monitor closely. Will monitor for sundowning. prefers not to provide Haldol. Will limit IV pain medication and anxiolytics. Discharge Plan: Other (Inpatient rehab) Plan to discharge in: 48 Hours Time Spent Managing Pts Care (In Minutes): 55
[2018-03-15] MEDS: ENSURE ENLIVE 237 ML CAN PO SCH ×2 (09:00→20:28)
[2018-03-15] MEDS: METOPROLOL XL 25 MG TAB PO SCH (10:08)
[2018-03-15] MEDS: ENOXAPARIN 30 MG/0.3 ML SQ SCH (10:08)
[2018-03-15 15:11] LABS: Ferritin 1578.6 ng/mL (26-388)
[2018-03-15] MEDS: ERYTHROMYCIN 1 APPL/1 GM TUBE EACH EYE SCH (16:03)
[2018-03-15] MEDS: AMITRIPTYLINE 25 MG TAB PO SCH ×2 (20:28→21:39)
--- NOTE | 2018-03-16 01:46 | PN ---
Date of Progress Note: 03/15/2018 Chief Complaint: Chronic kidney disease. History Of Present Illness: The patient is tolerating p.o. intake. The patient completed IV fluids for prerenal azotemia. The patient denies lower urinary tract symptoms. Review of Systems: Denies fever or chills. Physical Examination: Lungs: Clear to auscultation bilaterally. Heart: S1, S2. Abdomen: Soft, benign. Extremities: No edema. Laboratory Data: Sodium 141, potassium 3.6, chloride 111, CO2 of 22, BUN 33, creatinine 2.0, glucose 99, magnesium 2.1, calcium 9.1. Impression And Plan: 1. Kidney disease, stage 3. Continue to monitor renal panel. The patient will continue adequate p.o. fluid intake. 2. Prerenal azotemia has resolved. The patient was found to have elevated creatinine up to 2.8 and creatinine has improved to 2.0. 3. Hypertension. Blood pressure in acceptable control. 4. Anemia, acute. The patient received blood transfusion. Monitor hemoglobin level. SAMMIE Voice ID: [id number] Report ID: [id number] MTDD
[2018-03-16] MEDS: HYDROCODONE/APAP 7.5/325 MG TAB PO PRN (01:55)
[2018-03-16 04:55] LABS: Absolute Lymphocytes (CBC) 0.9 K/uL (0.7-4.9); Absolute Monocytes 0.7 K/uL (0.1-1.3); Absolute Neutrophil 4.2 K/uL (1.8-8.0); Basophils % 0.7 % (0-1.3); Eosinophils % 2.8 % (0-4.4); Hematocrit 22.6 % (39.6-49.0); Lymphocytes % 14.9 % (15.3-44.8); MCH 31.5 pg (27.0-35.0); MCV 90.8 fL (80-100); MPV 8.5 fL (7.6-11.3); Monocytes % 11.5 % (3.3-12.3); RBC Red Blood Cell Count 2.49 M/uL (4.33-5.43)
[2018-03-16 05:10] LABS: Potassium 3.6 mmol/L (3.5-5.1)
[2018-03-16] MEDS ORDERED: POTASSIUM CL SA 10 MEQ TAB PO ONE (05:39)
[2018-03-16] MEDS: PANTOPRAZOLE 40MG TABLET PO SCH (07:35)
[2018-03-16 08:34] LABS: Hematocrit 23.3 % (39.6-49.0)
[2018-03-16] MEDS: SOD FERRIC GLUC COMPLX/SUCROSE 125 MG in NA CHLORIDE 0.9% 100 ML IV SCH (08:49)
[2018-03-16] MEDS: ERYTHROMYCIN 1 APPL/1 GM TUBE EACH EYE SCH ×2 (08:50→20:06)
[2018-03-16] MEDS: ENOXAPARIN 30 MG/0.3 ML SQ SCH (08:50)
[2018-03-16] MEDS: ENSURE ENLIVE 237 ML CAN PO SCH ×2 (08:51→20:09)
[2018-03-16] MEDS: METOPROLOL XL 25 MG TAB PO SCH ×2 (08:53→09:00)
--- NOTE | 2018-03-16 09:54 | P.PN ---
Subjective Date of Service: 03/16/18 Primary Care Provider: Dr. Finley; Nephrology-Dr. Mercado; Cardiology-Dr. Anderson Chief Complaint: Status post prior right hip repair Subjective: Doing well (No hallucinations noted at this time. at bedside. reports patient slept well.) Physical Examination - Vital Signs Temperature: 98.3 F Blood Pressure: 120/70 Pulse: 70 Respirations: 18 Pulse Ox (%): 98 - Physical Exam General: Alert, In no apparent distress, Cooperative HEENT: Atraumatic Neck: Supple Respiratory: Clear to auscultation bilaterally, Normal air movement Cardiovascular: Normal pulses, Regular rate/rhythm Gastrointestinal: Normal bowel sounds, Soft and benign, Non-distended, No tenderness, No masses, No rebound, No guarding Musculoskeletal: No erythema, No tenderness, No warmth Integumentary: No erythema, No warmth, No cyanosis Neurological: Normal strength at 5/5 x4 extr, Normal tone - Studies Medications List Reviewed: Yes Assessment & Plan - Problems (Diagnosis) (1) Fall Onset Date: 03/12/18 Current Visit: Yes Status: Acute Plan: Patient status post surgery. Continue with physical therapy. Case discussed with . prefers skilled placement. Will discuss with social director. No hallucinations noted at this time. Will continue to monitor closely. Will limit pain medication and anxiolytics. Likely transfer to skilled facility in the next 1-2 days. Qualifiers: Encounter type: initial encounter Qualified Code(s): W19.XXXA - Unspecified fall, initial encounter (2) Fracture of femoral neck, right Onset Date: ~03/10/18 Current Visit: Yes Status: Acute Plan: Status post surgery. Continue as above. Await skilled placement transfer Qualifiers: Encounter type: subsequent encounter Fracture type: closed (3) Chronic renal disease Onset Date: 03/12/18 Current Visit: Yes Status: Chronic Plan: Nephrology consulted. Renal function improved. Qualifiers: Chronic kidney disease stage: stage 3 (moderate) Qualified Code(s): N18.3 - Chronic kidney disease, stage 3 (moderate) (4) H/O aortic valve replacement Current Visit: Yes Status: Chronic Plan: Echocardiogram unremarkable. (5) History of nephrectomy Current Visit: Yes Status: Chronic Plan: Stable. Nephrology consulted. (6) Hypertension Onset Date: 03/12/18 Current Visit: Yes Status: Chronic Plan: Will continue with medication. Qualifiers: Hypertension type: essential hypertension Qualified Code(s): I10 - Essential (primary) hypertension (7) Anemia Current Visit: Yes Status: Acute Plan: Status post surgery. Patient with iron deficiency anemia. Hemoglobin stable. Will start IV iron. Qualifiers: Anemia type: iron deficiency Iron deficiency anemia type: unspecified iron deficiency Qualified Code(s): D50.9 - Iron deficiency anemia, unspecified (8) Delirium Current Visit: Yes Status: Resolved Plan: Patient with delirium likely from post anesthesia. This has resolved. Discharge Plan: Other (Skilled placement facility) Plan to discharge in: 24 Hours Time Spent Managing Pts Care (In Minutes): 55
[2018-03-16] MEDS ORDERED: MORPHINE 4 MG/ML SYR IV PRN (15:30)
--- NOTE | 2018-03-16 16:58 | P.PN ---
Date of Service: 03/16/18 (POD#4) S: PATIENT STILL HAVING SOME ISSUES WITH CONFUSION, BUT WOKE UP FROM NAP TO RESPOND APPROPRIATELY WITH HUMOR DURING THIS AFTERNOON'S VISIT.. STILL NOTES SOME HALLUCINATIONS. O: VSS, HGB 8.0 WITH THIS MORNINGS RE-DRAW AFTER 7.8, DOWN FROM POST-OP 10.7 AND PRE-OP 12.5; INCISION CLEAN AND DRY. NV EXAM INTACT, HANH'S NEGATIVE. PATIENT MADE 60' w/RW. STILL REQUIRING CUEING TO SLOW DOWN. SAW PATIENT CHARGE OUT OF THE BR WITH SUBSTANTIAL FORWARD TILT DURING YESTERDAY'S VISIT, NURSE CHASING HIM WITH IV POLE. A: REASONABLE PROGRESS, GOOD CHANCE TO TURN AROUND ACUTE POST HEMORRHAGIC ANEMIA ON POD#5 P: MOBILIZE TOLERATED, MONITOR HGB.
[2018-03-16] MEDS: AMITRIPTYLINE 25 MG TAB PO SCH (20:06)
--- NOTE | 2018-03-17 02:36 | PN ---
Date of Progress Note: 03/16/2018 Subjective: The patient was admitted with hip fracture status post surgery. The patient had acute k idney injury, resolved back to his baseline. 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 Physical Examination: Vital Signs: Blood pressure 125/69, pulse of 64, afebrile. Chest: Clear to auscultation. Heart: S1, S2. Regular. Systolic murmur. Abdomen: Soft, nontender. Extremities: No edema. Laboratory Data: H and H 8/23.3. Sodium 142, potassium 3.6, bicarb 20, BUN 36, creatinine 1.9, calc ium 9.2, magnesium of 2. Current Medications: The patient on include: 1.IV iron. 2.Lovenox. 3.Metoprolol 25 b.i.d. 4.Amitriptyline. 5.Haloperidol. 6.Ensure. 7.Pantoprazole. Assessment And Plan: 1.Acute kidney injury on chronic kidney disease, stable on baseline, currently plateau. I am going to continue to monitor. 2.Hypertension, controlled, optimal. Continue current medication. 3.Hip fracture status post surgery. We will follow up with the primary. HERMAN Voice ID: [id number] Report ID: [id number]
[2018-03-17] MEDS: PANTOPRAZOLE 40MG TABLET PO SCH (05:54)
[2018-03-17 06:33] LABS: Magnesium 2.3 mg/dL (1.8-2.4); Potassium 3.8 mmol/L (3.5-5.1)
[2018-03-17 07:01] LABS: Absolute Lymphocytes (CBC) 0.9 K/uL (0.7-4.9); Absolute Monocytes 0.6 K/uL (0.1-1.3); Absolute Neutrophil 3.7 K/uL (1.8-8.0); Basophils % 0.6 % (0-1.3); Eosinophils % 2.9 % (0-4.4); Hematocrit 22.8 % (39.6-49.0); MCH 31.3 pg (27.0-35.0); MCV 90.6 fL (80-100); MPV 8.4 fL (7.6-11.3); Monocytes % 11.5 % (3.3-12.3); RBC Red Blood Cell Count 2.52 M/uL (4.33-5.43)
[2018-03-17] MEDS ORDERED: LACTULOSE 20 GM/30 ML UCUP PO PRN (07:54)
[2018-03-17] MEDS: ERYTHROMYCIN 1 APPL/1 GM TUBE EACH EYE SCH ×2 (09:00→22:22)
[2018-03-17] MEDS: ENSURE ENLIVE 237 ML CAN PO SCH ×2 (09:00→21:00)
[2018-03-17 09:03] LABS: Platelet Estimate ADEQ
[2018-03-17 09:04] LABS: Blood Morphology Comment NOT SEEN (NOT SEEN)
[2018-03-17] MEDS: DOCUSATE NA 100 MG CAP PO SCH (09:11)
[2018-03-17] MEDS: SOD FERRIC GLUC COMPLX/SUCROSE 125 MG in NA CHLORIDE 0.9% 100 ML IV SCH (09:11)
[2018-03-17] MEDS: ENOXAPARIN 30 MG/0.3 ML SQ SCH (09:11)
[2018-03-17] MEDS: METOPROLOL XL 25 MG TAB PO SCH (09:12)
--- NOTE | 2018-03-17 11:30 | P.PN ---
Subjective Date of Service: 03/17/18 Primary Care Provider: Dr. Finley; Nephrology-Dr. Mercado; Cardiology-Dr. Anderson Chief Complaint: Status post prior right hip repair Subjective: Doing well (Patient with mild constipation.) Physical Examination - Vital Signs Temperature: 98.4 F Blood Pressure: 112/65 Pulse: 77 Respirations: 16 Pulse Ox (%): 99 - Physical Exam General: Alert, In no apparent distress, Oriented x3, Cooperative HEENT: Atraumatic Neck: Supple Respiratory: Clear to auscultation bilaterally, Normal air movement Cardiovascular: Normal pulses, Regular rate/rhythm Gastrointestinal: Normal bowel sounds, Soft and benign, Non-distended Musculoskeletal: No erythema, No tenderness, No warmth Integumentary: No tenderness/swelling, No erythema, No warmth, No cyanosis Neurological: Normal speech, Normal strength at 5/5 x4 extr, Normal tone - Studies Medications List Reviewed: Yes Assessment & Plan - Problems (Diagnosis) (1) Fall Onset Date: 03/12/18 Current Visit: Yes Status: Acute Plan: Patient status post surgery. Continue with physical therapy. Patient doing well with physical therapy. Awaiting skilled placement approval. Case discussed with . prefers skilled placement. No hallucinations noted. Will provide medication for constipation. Await approval for skilled placement Qualifiers: Encounter type: initial encounter Qualified Code(s): W19.XXXA - Unspecified fall, initial encounter (2) Fracture of femoral neck, right Onset Date: ~03/10/18 Current Visit: Yes Status: Acute Plan: Status post surgery. Continue as above. Continue with physical therapy. Patient progressing well. Await skilled placement transfer Qualifiers: Encounter type: subsequent encounter Fracture type: closed (3) Chronic renal disease Onset Date: 03/12/18 Current Visit: Yes Status: Chronic Plan: Nephrology consulted. Renal function improved. Overall stable. Qualifiers: Chronic kidney disease stage: stage 3 (moderate) Qualified Code(s): N18.3 - Chronic kidney disease, stage 3 (moderate) (4) H/O aortic valve replacement Current Visit: Yes Status: Chronic Plan: Echocardiogram unremarkable. (5) History of nephrectomy Current Visit: Yes Status: Chronic Plan: Stable. Nephrology consulted. (6) Hypertension Onset Date: 03/12/18 Current Visit: Yes Status: Chronic Plan: Will continue with medication. Overall stable. Qualifiers: Hypertension type: essential hypertension Qualified Code(s): I10 - Essential (primary) hypertension (7) Anemia Current Visit: Yes Status: Acute Plan: Status post surgery. Patient with iron deficiency anemia. Hemoglobin stable. Continue with IV iron. Patient will need oral iron at discharge. Qualifiers: Anemia type: iron deficiency Iron deficiency anemia type: unspecified iron deficiency Qualified Code(s): D50.9 - Iron deficiency anemia, unspecified (8) Delirium Current Visit: Yes Status: Resolved Plan: Patient with delirium likely from post anesthesia. This has resolved. (9) Constipation Current Visit: Yes Status: Acute Plan: Will provide medication for constipation. Will provide stool softener. Discharge Plan: Other (Skilled placement) Plan to discharge in: 24 Hours Time Spent Managing Pts Care (In Minutes): 55
--- NOTE | 2018-03-17 16:42 | PN ---
Date of Progress Note: 03/17/2018 Subjective: The patient more awake today, sitting in chair, and ambulating with walker. Physical Examination: Vital Signs: Blood pressure 112/65, pulse of 77, afebrile. The patient had good urine output of voi ding. Chest: Clear to auscultation. Heart: S1, S2. Regular. Abdomen: Soft, nontender. Extremities: No edema. The patient had urine output of 850. Laboratory Data: H and H 7.9/22.8. Sodium 141, potassium 3.8, bicarb 23, BUN 34, creatinine 2.1, ca lcium 9.5, magnesium 2.3, TSAT of 9.8, ferritin 1500. Medications: Current medication the patient on its include: 1.IV iron. 2.Metoprolol 25 daily. 3.Amitriptyline. 4.Zofran. 5.Hydrocodone. 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 2.Nephrolithiasis, asymptomatic. 3.Hip fracture, status post repair. We will follow up with surgery. 4.Hypertension, controlled optimal. Continue current medication. 5.Anemia secondary to blood loss in the surgery. TSAT is low, but ferritin is elevated. Consider t o hold IV iron. HERMAN Voice ID: [id number] Report ID: [id number]
--- NOTE | 2018-03-17 20:27 | P.PN ---
Date of Service: 03/17/18 (POD#5) S: PATIENT COMFORTABLE IN BED USING URINAL. ANXIOUS ABOUT DECISION FOR SNU vs REHAB FLOOR. O: VSS, HGB 8.6 WITH THIS MORNINGS RE-DRAW AFTER 7.9; PATIENT MADE 80' THIS MORNING w/RW. A: REASONABLE PROGRESSPOD#5 P: MOBILIZE TOLERATED, CONTINUE TO MONITOR HGB. REASSURED THAT SNU IS A GOOD DECISION.
[2018-03-17] MEDS: HYDROCODONE/APAP 7.5/325 MG TAB PO PRN (22:20)
[2018-03-17] MEDS: AMITRIPTYLINE 25 MG TAB PO SCH (22:21)
[2018-03-18 04:31] LABS: Absolute Lymphocytes (CBC) 1.3 K/uL (0.7-4.9); Absolute Monocytes 0.7 K/uL (0.1-1.3); Absolute Neutrophil 4.1 K/uL (1.8-8.0); Basophils % 0.9 % (0-1.3); Eosinophils % 3.5 % (0-4.4); Hematocrit 22.5 % (39.6-49.0); Lymphocytes % 19.9 % (15.3-44.8); MCH 31.4 pg (27.0-35.0); MCV 90.5 fL (80-100); MPV 8.3 fL (7.6-11.3); Monocytes % 11.5 % (3.3-12.3); RBC Red Blood Cell Count 2.48 M/uL (4.33-5.43)
[2018-03-18 04:48] LABS: Magnesium 2.2 mg/dL (1.8-2.4); Potassium 4.1 mmol/L (3.5-5.1)
[2018-03-18 05:07] LABS: Blood Morphology Comment NOT SEEN (NOT SEEN); Platelet Estimate ADEQ
[2018-03-18] MEDS: PANTOPRAZOLE 40MG TABLET PO SCH (05:46)
[2018-03-18 08:53] LABS: Hematocrit 24.2 % (39.6-49.0)
[2018-03-18] MEDS: DOCUSATE NA 100 MG CAP PO SCH (09:00)
[2018-03-18] MEDS: ENSURE ENLIVE 237 ML CAN PO SCH ×2 (09:00→21:00)
[2018-03-18] MEDS: ENOXAPARIN 30 MG/0.3 ML SQ SCH (09:48)
[2018-03-18] MEDS: ERYTHROMYCIN 1 APPL/1 GM TUBE EACH EYE SCH ×2 (09:49→21:00)
[2018-03-18] MEDS: SOD FERRIC GLUC COMPLX/SUCROSE 125 MG in NA CHLORIDE 0.9% 100 ML IV SCH (09:49)
[2018-03-18] MEDS: METOPROLOL XL 25 MG TAB PO SCH (09:49)
--- NOTE | 2018-03-18 11:11 | P.PN ---
Subjective Date of Service: 03/18/18 Primary Care Provider: Dr. Finley; Nephrology-Dr. Mercado; Cardiology-Dr. Anderson Chief Complaint: Status post prior right hip repair Subjective: Improving Physical Examination - Vital Signs Temperature: 97.1 F Blood Pressure: 119/65 Pulse: 63 Respirations: 12 Pulse Ox (%): 100 - Physical Exam General: Alert, In no apparent distress, Oriented x3, Cooperative HEENT: Atraumatic Neck: Supple Respiratory: Clear to auscultation bilaterally, Normal air movement Cardiovascular: Normal pulses, Regular rate/rhythm Gastrointestinal: Normal bowel sounds, Soft and benign, Non-distended, No tenderness, No masses, No rebound, No guarding Musculoskeletal: No erythema, No tenderness, No warmth Integumentary: No tenderness/swelling, No erythema, No warmth, No cyanosis Neurological: Normal speech, Normal strength at 5/5 x4 extr, Normal tone, Normal affect - Studies Medications List Reviewed: Yes Assessment & Plan - Problems (Diagnosis) (1) Fall Onset Date: 03/12/18 Current Visit: Yes Status: Acute Plan: Patient status post surgery. Continue with physical therapy. Patient doing well with physical therapy. Awaiting skilled placement approval. Case discussed with . also considering inpatient rehab versus skilled placement. I discuss that this will depend on insurance coverage. Case discussed with director of social services. Anticipate skilled placement. I will turn the service over to Dr. Khanna tomorrow. I will go over the plan of care with her. Qualifiers: Encounter type: initial encounter Qualified Code(s): W19.XXXA - Unspecified fall, initial encounter (2) Fracture of femoral neck, right Onset Date: ~03/10/18 Current Visit: Yes Status: Acute Plan: Status post surgery. Continue as above. Continue with physical therapy. Patient progressing well. Await skilled placement transfer Qualifiers: Encounter type: subsequent encounter Fracture type: closed (3) Chronic renal disease Onset Date: 03/12/18 Current Visit: Yes Status: Chronic Plan: Nephrology consulted. Renal function improved. Overall stable. Qualifiers: Chronic kidney disease stage: stage 3 (moderate) Qualified Code(s): N18.3 - Chronic kidney disease, stage 3 (moderate) (4) H/O aortic valve replacement Current Visit: Yes Status: Chronic Plan: Echocardiogram unremarkable. (5) History of nephrectomy Current Visit: Yes Status: Chronic Plan: Stable. Nephrology consulted. (6) Hypertension Onset Date: 03/12/18 Current Visit: Yes Status: Chronic Plan: Will continue with medication. Overall stable. Qualifiers: Hypertension type: essential hypertension Qualified Code(s): I10 - Essential (primary) hypertension (7) Anemia Current Visit: Yes Status: Acute Plan: Status post surgery. Patient with iron deficiency anemia. Hemoglobin stable. Continue with IV iron. Patient will need oral iron at discharge. Qualifiers: Anemia type: iron deficiency Iron deficiency anemia type: unspecified iron deficiency Qualified Code(s): D50.9 - Iron deficiency anemia, unspecified (8) Delirium Current Visit: Yes Status: Resolved Plan: This has resolved. Likely from post anesthesia. (9) Constipation Current Visit: Yes Status: Acute Plan: Will provide medication for constipation. Will provide stool softener. Discharge Plan: Other (Skilled placement facility) Plan to discharge in: 24 Hours Time Spent Managing Pts Care (In Minutes): 55
[2018-03-18] MEDS ORDERED: EPOETIN ALFA 10,000 UNIT/ML VIAL SQ ONE (13:30)
--- NOTE | 2018-03-18 18:13 | PN ---
Date of Progress Note: 03/18/2018 Subjective: The patient is doing well. No nausea. No vomiting. The patient is sitting in the julieth r comfortable. Physical Examination: Vital signs: Blood pressure 107/55, pulse of 82, afebrile. Chest: Clear to auscultation. Heart: S1, S2. Regular. Abdomen: Soft nontender. Extremity: No edema. Laboratory Data: H and H 8.4/24.2. Sodium 140, potassium 4.1, bicarb 23, BUN 41, creatinine 2.2 pamela cium 8.9, GFR 29, magnesium of 2.2. Medications: Current medications, the patient on include; 1.Erythromycin. 2.IV iron. 3.Lovenox. 4.Metoprolol. 5.Amitriptyline. 6.Lactulose. 7.Zofran. 8.PPI 40 mg of pantoprazole. 9.Pain medication. Assessment And Plan: 1.Chronic kidney disease, solitary kidney status post nephrectomy stable on baseline normal volume. I am going to continue current medication. 2.Hypertension, controlled optimal. We will continue to monitor. 3.Anemia of chronic kidney disease. I am going to start the patient on Epogen. I will discuss with Dr. Anne regarding the IV iron. 4.Hip fracture status post surgery. We will follow up with Ortho. DENNIS/SEPIDEH Voice ID: [id number] Report ID: [id number]
--- NOTE | 2018-03-18 19:22 | P.PN ---
Date of Service: 03/18/18 (POD#6) S: PATIENT FOUND SITTING IN BEDSIDE CHAIR. FIRST TIME ABSENT IN WEEK OF HOSPITALIZATION. ADVISED BY ING STAFF THAT SHE HAS REVERSED TO CHOOSE 5TH FLOOR REHAB STAY FOR HER . O: VSS, HGB 8.4 WITH THIS MORNINGS RE-DRAW AFTER 7.9; PATIENT MADE 260' w/RW TODAY. A: GOOD PROGRESS POD#6 P: MOBILIZE TOLERATED, CONTINUE TO MONITOR HGB.
[2018-03-18] MEDS: AMITRIPTYLINE 25 MG TAB PO SCH (21:43)
[2018-03-19] MEDS: PANTOPRAZOLE 40MG TABLET PO SCH (06:11)
[2018-03-19] MEDS: ENSURE ENLIVE 237 ML CAN PO SCH ×2 (09:00→21:28)
[2018-03-19] MEDS: METOPROLOL XL 25 MG TAB PO SCH (09:45)
[2018-03-19] MEDS: DOCUSATE NA 100 MG CAP PO SCH (09:45)
[2018-03-19] MEDS: ERYTHROMYCIN 1 APPL/1 GM TUBE EACH EYE SCH ×2 (09:45→21:28)
[2018-03-19] MEDS: ENOXAPARIN 30 MG/0.3 ML SQ SCH (09:45)
--- NOTE | 2018-03-19 12:22 | P.PN ---
Subjective Date of Service: 03/19/18 Primary Care Provider: Dr. Finley; Nephrology-Dr. Mercado; Cardiology-Dr. Anderson Chief Complaint: Status post prior right hip repair Patient seen and examined at bedside with RN. Chart reviewed. Case discussed with orthopedics. 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 Review of Systems General: As per HPI Physical Examination - Vital Signs Temperature: 98.9 F Blood Pressure: 121/62 Pulse: 60 Respirations: 18 Pulse Ox (%): 98 - Physical Exam General: Alert, In no apparent distress HEENT: Atraumatic, PERRLA, EOMI Neck: Supple, JVD not distended Respiratory: Clear to auscultation bilaterally, Normal air movement Cardiovascular: Regular rate/rhythm, Normal S1 S2 Gastrointestinal: Normal bowel sounds, No tenderness Musculoskeletal: No tenderness Integumentary: No rashes Neurological: Normal speech, Normal tone, Normal affect Lymphatics: No axilla or inguinal lymphadenopathy - Studies Medications List Reviewed: Yes Assessment & Plan - Problems (Diagnosis) (1) Fall Onset Date: 03/12/18 Current Visit: Yes Status: Acute Plan: S/P Mechanical Fall at the [facility] e -PT consulted. Pt ambulated 40' with RW and got fatigued today -Currently pending placement to SNF vs Inpatient rehab Qualifiers: Encounter type: initial encounter Qualified Code(s): W19.XXXA - Unspecified fall, initial encounter (2) Fracture of femoral neck, right Onset Date: ~03/10/18 Current Visit: Yes Status: Acute Plan: S/P ORIF with ORTHO -dvt PPX -PT consulted. -Ortho consulted. Appreciate Reccs -Pending placement Qualifiers: Encounter type: subsequent encounter Fracture type: closed (3) Anemia Current Visit: Yes Status: Chronic Qualifiers: Anemia type: iron deficiency Iron deficiency anemia type: unspecified iron deficiency Qualified Code(s): D50.9 - Iron deficiency anemia, unspecified (4) Chronic renal disease Onset Date: 03/12/18 Current Visit: Yes Status: Chronic Qualifiers: Chronic kidney disease stage: stage 3 (moderate) Qualified Code(s): N18.3 - Chronic kidney disease, stage 3 (moderate) (5) H/O aortic valve replacement Current Visit: Yes Status: Chronic (6) History of nephrectomy Current Visit: Yes Status: Chronic (7) Hypertension Onset Date: 03/12/18 Current Visit: Yes Status: Chronic Qualifiers: Hypertension type: essential hypertension Qualified Code(s): I10 - Essential (primary) hypertension Discharge Plan: Home Plan to discharge in: 24 Hours - Code Status/Comfort Care Code Status Assessed: Yes Critical Care: No
--- NOTE | 2018-03-19 14:21 | P.PN ---
Date of Service: 03/19/18 (POD#7) S: PATIENT SITTING IN BEDSIDE CHAIR AND STOOD WITHOUT ASSISTANCE TO TAKE A QUICK LAP AROUND THE FLOOR. 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 5TH FLOOR REHAB STAY DENIED, NOW CONCERNED THAT GO HOME OPTION SHOULD INCLUDE GUARANTEED ADMIT TO [facility] IF PROBLEMS OCCUR. O: VSS, HGB NOT DONE TODAY HGB RANGE LAST 8 DRAWS VARIED ONLY FROM 7.8 TO 8.6. CHRONIC ANEMIA RELATED TO RENAL PROBLEMS. WITH THIS MORNINGS RE-DRAW AFTER 7.9; PATIENT MADE 260' w/RW TODAY. A: GOOD PROGRESS TODAY, POD#7 P: MOBILIZE TOLERATED, CONTINUE TO MONITOR HGB.
[2018-03-19] MEDS: AMITRIPTYLINE 25 MG TAB PO SCH (21:28)
[2018-03-20 04:50] LABS: Absolute Lymphocytes (CBC) 1.2 K/uL (0.7-4.9); Absolute Monocytes 0.9 K/uL (0.1-1.3); Absolute Neutrophil 7.9 K/uL (1.8-8.0); Basophils % 0.6 % (0-1.3); Hematocrit 25.1 % (39.6-49.0); Lymphocytes % 11.6 % (15.3-44.8); MCH 31.1 pg (27.0-35.0); MCV 90.1 fL (80-100); MPV 7.8 fL (7.6-11.3); RBC Red Blood Cell Count 2.78 M/uL (4.33-5.43)
[2018-03-20 05:07] LABS: Albumin 2.3 g/dL (3.4-5.0); Bilirubin Total 0.3 mg/dL (0.2-1.0); Potassium 4.1 mmol/L (3.5-5.1)
[2018-03-20 05:44] LABS: Blood Morphology Comment NOT SEEN (NOT SEEN); Platelet Estimate ADEQ
[2018-03-20] MEDS: PANTOPRAZOLE 40MG TABLET PO SCH (05:57)
[2018-03-20] MEDS: ENOXAPARIN 30 MG/0.3 ML SQ SCH (07:57)
[2018-03-20] MEDS: ERYTHROMYCIN 1 APPL/1 GM TUBE EACH EYE SCH ×2 (07:57→21:12)
[2018-03-20] MEDS: DOCUSATE NA 100 MG CAP PO SCH (07:58)
[2018-03-20] MEDS: ENSURE ENLIVE 237 ML CAN PO SCH ×2 (07:58→21:00)
[2018-03-20] MEDS: METOPROLOL XL 25 MG TAB PO SCH (07:58)
--- NOTE | 2018-03-20 12:07 | P.PN ---
Subjective Date of Service: 03/20/18 Primary Care Provider: Dr. Finley; Nephrology-Dr. Mercado; Cardiology-Dr. Anderson Chief Complaint: Status post prior right hip repair Patient seen and examined at bedside with RN. Chart reviewed. Case discussed with orthopedics. Case also discussed with physical therapy and access assoc at this time. Pt currently pending PT consult and Placement Review of Systems General: As per HPI Physical Examination - Vital Signs Temperature: 98.3 F Blood Pressure: 112/65 Pulse: 78 Respirations: 18 Pulse Ox (%): 100 - Physical Exam General: Alert, In no apparent distress HEENT: Atraumatic, PERRLA, EOMI Neck: Supple, JVD not distended Respiratory: Clear to auscultation bilaterally, Normal air movement Cardiovascular: Regular rate/rhythm, Normal S1 S2 Gastrointestinal: Normal bowel sounds, No tenderness Musculoskeletal: No tenderness Integumentary: No rashes Neurological: Normal speech, Normal tone, Normal affect Lymphatics: No axilla or inguinal lymphadenopathy - Studies Medications List Reviewed: Yes Assessment & Plan - Problems (Diagnosis) (1) Fall Onset Date: 03/12/18 Current Visit: Yes Status: Acute Plan: S/P [facility] -PT consulted. Awaiting PT therapy today -Currently pending placement to SNF vs Inpatient rehab Qualifiers: Encounter type: initial encounter Qualified Code(s): W19.XXXA - Unspecified fall, initial encounter (2) Fracture of femoral neck, right Onset Date: ~03/10/18 Current Visit: Yes Status: Acute Plan: S/P ORIF with ORTHO -dvt PPX -PT consulted. -Ortho consulted. Appreciate Reccs -Pending placement Qualifiers: Encounter type: subsequent encounter Fracture type: closed (3) Anemia Current Visit: Yes Status: Chronic Qualifiers: Anemia type: iron deficiency Iron deficiency anemia type: unspecified iron deficiency Qualified Code(s): D50.9 - Iron deficiency anemia, unspecified (4) Chronic renal disease Onset Date: 03/12/18 Current Visit: Yes Status: Chronic Qualifiers: Chronic kidney disease stage: stage 3 (moderate) Qualified Code(s): N18.3 - Chronic kidney disease, stage 3 (moderate) (5) H/O aortic valve replacement Current Visit: Yes Status: Chronic (6) History of nephrectomy Current Visit: Yes Status: Chronic (7) Hypertension Onset Date: 03/12/18 Current Visit: Yes Status: Chronic Qualifiers: Hypertension type: essential hypertension Qualified Code(s): I10 - Essential (primary) hypertension
[2018-03-20] MEDS ORDERED: NA CHLORIDE 0.9% 500 ML IV SCH (15:00)
--- NOTE | 2018-03-20 15:00 | PN ---
Date Of Service: Subjective: The patient doing well. No event. Status post hip surgery. Physical Examination: Vital Signs: Blood pressure 111/59, pulse of 64. Afebrile. Chest: Clear to auscultation. Heart: S1, S2. Regular. Abdomen: Soft, nontender. Extremities: No edema. Laboratory Data: H and H 8.6/25.1. Sodium 139, potassium 4.1, bicarb 22, BUN 47, creatinine 2.4, ca lcium 9.9. Current Medications: The patient is on Epogen, erythromycin, Lovenox, metoprolol 25 b.i.d., amitript yline, pantoprazole, Zofran. 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 Continue current medication. 2.Hypertension, controlled optimal. Continue metoprolol. 3.Urinary tract infection is stable. 4.Hip fracture status post surgery. We will follow up with the primary. The patient cleared from t he renal standpoint for discharge planning. HERMAN Voice ID: [id number] Report ID: [id number]
--- NOTE | 2018-03-20 15:30 | PN ---
Date of Progress Note: 03/20/2018 Subjective: The patient is doing well. No nausea. No vomiting. Sleepy comfortable. Physical Examination: Vital Signs: Blood pressure 112/65, pulse of 78. Afebrile. The patient had good urine output. Chest: Clear to auscultation. Heart: S1, S2. Regular. Abdomen: Soft, nontender. Extremities: No edema. Laboratory Data: WBC 10.3, H and H 8.6/25.1, platelets of 372. Sodium of 139, potassium 4.1, bicarb 22, BUN 47, creatinine 2.4, calcium 9.9. Medications: Current medications, the patient is on include; 1.Epogen. 2.Erythromycin. 3.Lovenox. 4.Metoprolol 25 daily. 5.Amitriptyline. 6.Lactulose. 7.Pantoprazole. 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 I going to go ahead and give the patient some gentle hydration and we will follow up th e patient. 2.Hypertension, controlled, optimal. Continue current medication. 3.Anemia of chronic kidney disease, stable. Continue Epogen. 4.Hip fracture status post surgery, follow up with Surgery. DENNIS/SEPIDEH Voice ID: [id number] Report ID: [id number]
[2018-03-20] MEDS: AMITRIPTYLINE 25 MG TAB PO SCH (21:12)
[2018-03-21 05:00] LABS: Absolute Lymphocytes (CBC) 1.4 K/uL (0.7-4.9); Basophils % 0.9 % (0-1.3); Eosinophils % 2.1 % (0-4.4); Hematocrit 24.4 % (39.6-49.0); Lymphocytes % 14.4 % (15.3-44.8); MCH 31.8 pg (27.0-35.0); MCV 90.6 fL (80-100); MPV 7.9 fL (7.6-11.3); Monocytes % 10.3 % (3.3-12.3); RBC Red Blood Cell Count 2.69 M/uL (4.33-5.43)
[2018-03-21 05:13] LABS: Albumin 2.4 g/dL (3.4-5.0); Bilirubin Total 0.2 mg/dL (0.2-1.0); Potassium 3.8 mmol/L (3.5-5.1)
[2018-03-21] MEDS ORDERED: POTASSIUM 25 MEQ EFFERV TAB PO ONE (05:34)
[2018-03-21] MEDS: PANTOPRAZOLE 40MG TABLET PO SCH (06:27)
[2018-03-21] MEDS: METOPROLOL XL 25 MG TAB PO SCH (08:50)
[2018-03-21] MEDS: ENOXAPARIN 30 MG/0.3 ML SQ SCH (08:51)
[2018-03-21] MEDS: ERYTHROMYCIN 1 APPL/1 GM TUBE EACH EYE SCH ×2 (08:51→20:35)
[2018-03-21] MEDS: ENSURE ENLIVE 237 ML CAN PO SCH ×2 (08:51→20:35)
[2018-03-21] MEDS: DOCUSATE NA 100 MG CAP PO SCH (08:51)
--- NOTE | 2018-03-21 12:25 | P.PN ---
Subjective Date of Service: 03/21/18 Primary Care Provider: Dr. Finley; Nephrology-Dr. Mercado; Cardiology-Dr. Anderson Chief Complaint: Status post prior right hip repair Patient seen and examined at bedside with RN. Chart reviewed. Case discussed with orthopedics. Case also discussed with physical therapy and traffic expert at this time. Pt currently pending PT consult and Placement Review of Systems is unable to be obtained General: As per HPI Physical Examination - Vital Signs Temperature: 98.8 F Blood Pressure: 110/65 Pulse: 70 Respirations: 18 Pulse Ox (%): 98 - Physical Exam General: Alert, In no apparent distress HEENT: Atraumatic, PERRLA, EOMI Neck: Supple, JVD not distended Respiratory: Clear to auscultation bilaterally, Normal air movement Cardiovascular: Regular rate/rhythm, Normal S1 S2 Gastrointestinal: Normal bowel sounds, No tenderness Musculoskeletal: No tenderness Integumentary: No rashes Neurological: Normal speech, Normal tone, Normal affect Lymphatics: No axilla or inguinal lymphadenopathy - Studies Medications List Reviewed: Yes Assessment & Plan - Problems (Diagnosis) (1) Fall Onset Date: 03/12/18 Current Visit: Yes Status: Acute Plan: S/P Mechanical Fall at the [facility] -PT consulted. Awaiting PT therapy today -Currently pending placement to SNF vs Inpatient rehab Qualifiers: Encounter type: initial encounter Qualified Code(s): W19.XXXA - Unspecified fall, initial encounter (2) Fracture of femoral neck, right Onset Date: ~03/10/18 Current Visit: Yes Status: Acute Plan: S/P ORIF with ORTHO -dvt PPX -PT consulted. -Ortho consulted. Appreciate Reccs -Pending placement Qualifiers: Encounter type: subsequent encounter Fracture type: closed (3) Anemia Current Visit: Yes Status: Chronic Qualifiers: Anemia type: iron deficiency Iron deficiency anemia type: unspecified iron deficiency Qualified Code(s): D50.9 - Iron deficiency anemia, unspecified (4) Chronic renal disease Onset Date: 03/12/18 Current Visit: Yes Status: Chronic Qualifiers: Chronic kidney disease stage: stage 3 (moderate) Qualified Code(s): N18.3 - Chronic kidney disease, stage 3 (moderate) (5) H/O aortic valve replacement Current Visit: Yes Status: Chronic (6) History of nephrectomy Current Visit: Yes Status: Chronic (7) Hypertension Onset Date: 03/12/18 Current Visit: Yes Status: Chronic Qualifiers: Hypertension type: essential hypertension Qualified Code(s): I10 - Essential (primary) hypertension
[2018-03-21] MEDS ORDERED: MORPHINE 2 MG/ML SYR IV PRN (15:00)
--- NOTE | 2018-03-21 19:19 | PN ---
Date of Progress Note: 03/21/2018 Subjective: No event. No nausea. No vomiting. Family refused IV fluids. Physical Examination: Vital Signs: Blood pressure 110/65, pulse of 70, afebrile. Chest: Clear to auscultation. Heart: S1, S2 regular. Abdomen: Soft, nontender. Extremities: No edema. Laboratory Data: H and H 8.6/24.4. Sodium 139, potassium 3.8, bicarb 21, BUN 47, creatinine 2.4, ca lcium 9.9. Medications: Current medications the patient is on include: 1.Lovenox. 2.Metoprolol 25 b.i.d. 3.Amitriptyline. 4.Lactulose. 5.Docusate. 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 We will continue to m onitor. Encourage p.o. hydration. 2.Hypertension, controlled optimal. Continue current medication. 3.Hip fracture, status post surgery. We will follow up with the primary. HERMAN Voice ID: [id number] Report ID: [id number]
[2018-03-21] MEDS: AMITRIPTYLINE 25 MG TAB PO SCH (20:32)
[2018-03-21 22:22] VITALS: O2SAT 99
[2018-03-22 05:24] LABS: Absolute Lymphocytes (CBC) 1.3 K/uL (0.7-4.9); Absolute Neutrophil 6.7 K/uL (1.8-8.0); Basophils % 0.7 % (0-1.3); Eosinophils % 2.7 % (0-4.4); Lymphocytes % 14.3 % (15.3-44.8); MCH 32.6 pg (27.0-35.0); MCV 90.9 fL (80-100); Monocytes % 10.6 % (3.3-12.3); RBC Red Blood Cell Count 2.53 M/uL (4.33-5.43)
[2018-03-22 05:45] LABS: Albumin 2.2 g/dL (3.4-5.0); Bilirubin Total 0.2 mg/dL (0.2-1.0); Potassium 4.5 mmol/L (3.5-5.1); Protein, Total 5.7 g/dL (6.4-8.2)
[2018-03-22 05:57] LABS: Blood Morphology Comment NOT SEEN (NOT SEEN); Platelet Estimate ADEQ; Urine White Blood Cell Casts OK
[2018-03-22] MEDS: PANTOPRAZOLE 40MG TABLET PO SCH (07:18)
[2018-03-22] MEDS: DOCUSATE NA 100 MG CAP PO SCH (08:59)
[2018-03-22] MEDS: ENOXAPARIN 30 MG/0.3 ML SQ SCH (09:00)
[2018-03-22] MEDS: ENSURE ENLIVE 237 ML CAN PO SCH (09:00)
[2018-03-22] MEDS: METOPROLOL XL 25 MG TAB PO SCH (09:00)
[2018-03-22] MEDS: ERYTHROMYCIN 1 APPL/1 GM TUBE EACH EYE SCH (09:02)
--- NOTE | 2018-03-22 13:29 | P.PN ---
Date of Service: 03/22/18 (POD#10) S: PATIENT SITTING IN BEDSIDE CHAIR. NO AMBULATION OVER WEEKEND BECAUSE OF DIZZINESS. REPORTS PATIENT MADE A FULL LAP AROUND THE FLOOR, 270" ON THURSDAY. 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 NOTE NOT AVAILABLE TO CONFIRM HER REPORT. O: VSS, HGB 8.4 THIS AM. OPENED BANDAGE AND REMOVED CHAMP POD# 10, ALCOHOL SWAB THE STERI-STRIPS APPLIED. AQUACEL CLOSED. PATIENT HAS HAD NO C/O PAIN AND NO PAIN MEDS SINCE 03/17, NEVER USED MORPHINE. A: GOOD PROGRESS TODAY, POD#10 P: CONTINUE TO MOBILIZE TOLERATED. LAST CARE MGMT NOTE 03/19 INDICATED PLAN WAS TO: DISCHARGE TO HOME WITH [facility] TO FOLLOW FOR ADL, BANDAGE CHANGE TO NEW AQUACEL PRIOR TO DISCHARGE AND Q 5D BY HH, AND HH PT FOR TRANSFERS AND GAIT SAFE WITH RW WBAT RLE, AAROM, & PROM; HIP IS STABLE WITH HIP PRECAUTIONS TO CONTINUE X 6 WEEKS; F/U MY OFFICE IN ONE WEEK FOR RE-X-RAY.
--- NOTE | 2018-03-22 13:57 | P.DS ---
Admission Date: 03/11/18 Discharge Date: 03/22/18 Primary Care Provider: Dr. Finley; Nephrology-Dr. Mercado; Cardiology-Dr. Anderson Disposition: DC HOME/HOME HEALTH CARE Discharge Condition: GOOD Reason for Admission: Status post prior right hip repair Consultations: Dr Prater Procedures: ORIF - Problems (1) Fall Onset Date: 03/12/18 Current Visit: Yes Status: Acute Qualifiers: Encounter type: initial encounter Qualified Code(s): W19.XXXA - Unspecified fall, initial encounter (2) Fracture of femoral neck, right Onset Date: ~03/10/18 Current Visit: Yes Status: Acute Qualifiers: Encounter type: subsequent encounter Fracture type: closed (3) Anemia Current Visit: Yes Status: Chronic Qualifiers: Anemia type: iron deficiency Iron deficiency anemia type: unspecified iron deficiency Qualified Code(s): D50.9 - Iron deficiency anemia, unspecified (4) Chronic renal disease Onset Date: 03/12/18 Current Visit: Yes Status: Chronic Qualifiers: Chronic kidney disease stage: stage 3 (moderate) Qualified Code(s): N18.3 - Chronic kidney disease, stage 3 (moderate) (5) H/O aortic valve replacement Current Visit: Yes Status: Chronic (6) History of nephrectomy Current Visit: Yes Status: Chronic (7) Hypertension Onset Date: 03/12/18 Current Visit: Yes Status: Chronic Qualifiers: Hypertension type: essential hypertension Qualified Code(s): I10 - Essential (primary) hypertension Brief History of Present Illness: During the hospital stay patient remained stable Patient was initially admitted to the hospital for right femoral neck fracture after having a mechanical fall. Patient was seen by orthopedic surgeon. Patient had a open reduction internal fixation of the right femoral neck. Patient recovered well postprocedure. The patient was initially referred over to custodial facility inpatient rehab for placement for physical therapy. However patient was denied from inpatient rehab as he was already walking 260 feet with a rolling walker and most likely not require further therapy and this was discharged home under stable condition with home health PT. Patient remained stable while here in the hospital and his chronic conditions remained stable while here in the hospital as well. Patient did have an extensive workup for the syncopal fall as well and was negative for any acute abnormality. Patient and both were educated extensively on following up with orthopedics and the importance of doing physical therapy at home and they both demonstrated understanding. Hospital Course: 82-year-old male presented emergency room after a fall at home. Patient reports multiple falls over the last day. Patient reported some dizziness prior to falling. No syncopal episode noted. He denies any chest pain , shortness of breath, headaches. The patient fell yesterday afternoon. He was able to get up without any pain. Patient also had another fall through the night the was able to get up. This morning he fell again but had pain to the right hip region. Patient was sent to the ER for evaluation. Patient found to have right transverse femoral neck fracture. Patient with history of hypertension, chronic renal disease, solitary kidney with history of left nephrectomy related to renal cell carcinoma, and aortic valve replacement- bovine. In the ER patient evaluated. Patient found to have right femoral neck fracture. White count 10.6, hemoglobin 12.5. Sodium 141, potassium 3.8. BUN of 40, creatinine 2.8 with a GFR 20. Patient stable this time. Pain controlled. When I saw the patient ER, he appeared comfortable. was at bedside. Vital Signs/Physical Exam: Temp Pulse Resp BP Pulse Ox 99.1 F 70 18 94/62 99 03/22/18 11:29 03/22/18 11:29 03/22/18 11:29 03/22/18 11:29 03/22/18 11:29 General: Alert, In no apparent distress HEENT: Atraumatic, PERRLA, EOMI Neck: Supple, JVD not distended Respiratory: Clear to auscultation bilaterally, Normal air movement Cardiovascular: Regular rate/rhythm, Normal S1 S2 Gastrointestinal: Normal bowel sounds, No tenderness Musculoskeletal: No tenderness Integumentary: No rashes Neurological: Normal speech, Normal tone, Normal affect Lymphatics: No axilla or inguinal lymphadenopathy Laboratory Data at Discharge: WBC 9.4 K/uL (4.3-10.9) 03/22/18 04:19 Hgb 8.3 g/dL (13.6-17.9) L 03/22/18 04:19 Hct 23.0 % (39.6-49.0) L 03/22/18 04:19 Plt Count 375 K/uL (152-406) 03/22/18 04:19 PT 11.9 SECONDS (9.5-12.5) 03/11/18 08:20 INR 1.01 03/11/18 08:20 APTT 28.8 SECONDS (24.3-36.9) 03/11/18 08:20 Sodium 138 mmol/L (136-145) 03/22/18 04:19 Potassium 4.5 mmol/L (3.5-5.1) 03/22/18 04:19 BUN 53 mg/dL (7-18) H 03/22/18 04:19 Creatinine 2.40 mg/dL (0.55-1.3) H 03/22/18 04:19 Glucose 102 mg/dL (74-106) 03/22/18 04:19 Magnesium 2.2 mg/dL (1.8-2.4) 03/18/18 03:56 Total Bilirubin 0.2 mg/dL (0.2-1.0) 03/22/18 04:19 AST 33 U/L (15-37) 03/22/18 04:19 ALT 62 U/L (12-78) 03/22/18 04:19 Alkaline Phosphatase 87 U/L (45-117) 03/22/18 04:19 Troponin I < 0.02 ng/mL (0.0-0.045) 03/11/18 21:05 Home Medications: Metoprolol Succinate [Toprol Xl] 25 mg PO DAILY 12/15/11 Amitriptyline [Elavil*] 1 tab PO BEDTIME 03/11/18 Testost Cypionate [Depo-Testosterone*] 1 ml IM Q7D 03/11/18 Diet: Regular Activity: Ad maria liusa Followup: Joaquín Prater MD [ACTIVE - CAN ADMIT] - 1-2 Weeks
[2018-03-22 16:21] VITALS: BP 100/62; TEMP 98.9
--- NOTE | 2018-03-23 03:32 | PN ---
Date of Progress Note: 03/22/2018 Chief Complaint: Chronic kidney stage 3/4, prerenal azotemia. The patient has nonoliguric urine output. The patient is undergoing rehab. He has had surgery for hip fracture. Review of Systems: Denies fever, chills. Physical Examination: Lungs: Clear to auscultation bilaterally. Heart: S1, S2. Abdomen: Soft, benign. Extremities: Minimal edema. Laboratory Data: Sodium 139, potassium 4.1, bicarbonate 22, BUN 47, creatinine 2.4. Impression And Plan: 1. 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 The patient has nonoliguric urine output. He developed some prerenal azotemia. Continue gentle hydration. 2. Hypertension. Continue blood pressure medication. The patient is on his metoprolol. Monitor blood pressure closely. 3. Anemia of chronic kidney disease, continue MARION. 4. Hip fracture. The patient will follow up with Surgery. SAMMIE Voice ID: [id number] Report ID: [id number] MTDD
--- NOTE | 2018-03-27 12:39 | OP ---
Date of Procedure: 03/12/2018 Surgeon: Joaquín Prater MD Flux Tube Attendant: Bethany Mauro RN. Preoperative Diagnosis: Closed fracture, right proximal femoral neck. Postoperative Diagnosis: Closed fracture, right proximal femoral neck. Primary Procedure: Insertion of cemented unipolar hip prosthesis, right hip. Procedure In Detail: The patient was taken to the operating room and given a general anesthesia. He was placed in the left lateral position with appropriate padding and axillary roll in position. The bolsters were placed on each side of the pelvis and lumbar spine to maintain the perpendicular plane to the floor. The right hip was then prepped and draped in the usual manner from the ribcage to the ankle with Betadine scrub and solution and DuraPrep for the foot and ankle. An impervious drape was applied to the foot and ankle extending to above the knee. After appropriate draping, Ioban sticky drape was placed across the operative area where the skin incision had been marked. A curved incisio n was made from the proximal femur toward the posterior iliac spine. The incision approximately 14 c m in length. The incision was carried sharply through the skin and subcutaneous tissue and then the fascia tiago was divided and the gluteus samuel was split with sharp and blunt dissection. The exter nal rotators were tagged and taken down from the posterior femoral cortex with traction to the peoplesoft taleo manager ior aspect of the incision. The joint capsule was exposed and divided in an L shaped incision to the piriformis insertion and then angled toward the acetabular superior rim. The capsule was clamped wi th a Mal clamp and traction on the Mal clamp allowed exposure of the fracture. A corkscrew was used to remove the femoral head. It was measured at 56 mm in diameter. Additional shards of calcar bone were removed. The oscillating saw was used to make the calcar cut approximately 1 cm above the lesser trochanter. Attention was then turned to preparing the proximal femur for insertion of a cemented stem. An intra medullary plug was positioned. Simpulse lavage and then drying of the intramedullary canal was follo wed by insertion of Phil Campbell simplex cement with gentamicin using a cement gun with 2 batches of cemen t mixed, pressurized technique was utilized and then the size 5 standard cemented stem was pushed int o place and held while the cement was curing. A -3 mm neck was chosen and assembled with the Cathcar t 54 mm metal hip ball. This was tapped into position. Reduction proved to be quite stable. Then, again Simpulse irrigation was utilized. Closure was affected with posterior capsular repair using #1 Vicryl. Fascial layers were closed with #1 Vicryl using interrupted sutures after the external rota tors were repaired to the posterior capsule using needles to penetrate bone for appropriate closure. The fascial layer was closed with a #1 Vicryl and subcutaneous layer was closed with 2-0 Vicryl. Sk in vernon were used for skin closure. The patient was returned to his hospital bed after Aquacel ba ndages were applied to the right hip incision. Estimated blood loss was 250 mL. The patient was the n taken to the recovery room having tolerated this procedure well. QING/SEPIDEH Voice ID: [id number] Report ID: [id number]
--- NOTE | 2018-04-02 14:31 | OP ---
Date of Procedure: 03/12/2018 Surgeon: Joaquín Prater MD Wood Dowel Machine Operator: Wilton Mauro RN. Preoperative Diagnosis: Closed fracture, right proximal femoral neck. Postoperative Diagnosis: Closed fracture, right proximal femoral neck. Primary Procedure: Insertion of cemented unipolar hip prosthesis, right hip. Indications: This 82-year-old patient has suffered a fall at home with impact on the right hip and h as presented with a displaced femoral neck fracture of the right proximal femur. After discussion of risks and benefits, the patient and his have elected to proceed with insertion of a cemented un ipolar hip prosthesis for the right hip fracture. Technique: The patient was taken to the operating room and given a general anesthesia with LMA. He was placed on the operative table in the left lateral position with appropriate padding and an axilla ry roll. Bolsters were placed behind the lumbar spine and in front of the abdomen and pubic ramus to maintain the perpendicular alignment of the pelvis to the floor. The right lower extremity was susp ended with traction from the foot and ankle and prepping with Betadine scrub and paint was carried ou t as per usual. The foot was prepped with DuraPrep after taking the limb down from traction. Drapin g was carried out. The operative site was marked and then covered with Ioban sticky drape. The inci radhames was made in a curved fashion from the proximal femur towards the posterior superior iliac spine. This incision was 14 cm in length. The sharp dissection was carried down through the subcutaneous tissue. Then, the Bovie coagulation was obtained with both Aquamantys and unipolar Bovie. The fasci a tiago was divided and the sharp and blunt division were carried proximally into the gluteus samuel, which was split bluntly. The self-retaining retractors were inserted. External rotators were excis ed from the posterior margin of the proximal femur. Suture tags with #1 Vicryl were placed and used for traction on the sciatic nerve. The joint capsule was exposed and an L-shaped arthrotomy was white ied out close to the femoral margin to the piriformis where it was angled towards the superior rim of the acetabulum. The capsule was peeled back and clasped with a clamp for traction. Then, the broke n calcar was visualized, shards were removed with a rongeur. A corkscrew T-handle was used to remove the femoral head, which was 55 mm in diameter. The trial 54 mm diameter was placed in position and was quite appropriate for picking the hip ball size. Attention was turned to the proximal femur and using the calcar elevator, exposure was accomplished to allow use of the box office clerk followed by the c anal finder and the lateralizer for the trochanter. Reaming was carried out to size 5. The intramed ullary plug was inserted to the proper depth. The Simpulse lavage was then carried out and the intra medullary canal of the proximal femur was then dried with the suction and absorbent pad. Two batches of simplex Audra cement with gentamicin were mixed and placed in a cement gun for pressurized inje ction technique. Once the cement was fully injected, a size 5 standard cemented stem was chosen and tapped into position and held there while the cement set. The 54 mm Constanza metal hip ball and -3 n belen were tapped together and applied to the cemented stem. Reduction was accomplished with traction and use of the hip ball pusher. The reduction was quite stable without pistoning and range of motion was quite good. Estimated blood loss was 250 mL. after Simpulse lavage, closure was effected with repair of the posterior hip capsule with #1 Vicryl interrupted sutures. The external rotators were a pplied to the posterior proximal femoral cortex using available soft tissue and needle passing throug h cortical bone. The fascia tiago incision was then repaired with interrupted #1 Vicryl sutures. The subcu was closed with 2-0 Vicryl interrupted sutures. Skin incision was closed with vernon. An Aq uacel bandage was applied to seal the wound area. The patient was placed in an abduction pillow and taken to the recovery room having tolerated this procedure well. The incision was injected with 30 m L of 0.25% Marcaine with epinephrine prior to application of the bandage. QING/SEPIDEH Voice ID: [id number] Report ID: [id number]
== END 2018-03-22 16:32 | disposition home health service (06) | DRG 470 ==
LOC: ER 09:13 → ERHOLD 11:23 → 2ND 14:50
PROVIDERS: ADMIT Family Medicine; ATTEND Family Medicine
PROC: 0SRR0J9 Replacement of Right Hip Joint, Femoral Surface with Synthetic Substitute, Cemented, Open Approach (ICD-10-PCS; principal; 2018-03-12 12:00)
DX: S72.031A Displaced midcervical fracture of right femur, initial encounter for closed fracture (principal); F05 Delirium due to known physiological condition; D62 Acute posthemorrhagic anemia; E87.2 Acidosis; N17.9 Acute kidney failure, unspecified; I13.10 Hypertensive heart and chronic kidney disease without heart failure, with stage 1 through stage 4 chronic kidney disease, or unspecified chronic kidney disease; N18.3 Chronic kidney disease, stage 3 (moderate); E87.6 Hypokalemia; E83.42 Hypomagnesemia; K59.00 Constipation, unspecified; D63.1 Anemia in chronic kidney disease; Z90.5 Acquired absence of kidney; Z95.3 Presence of xenogenic heart valve; Z85.528 Personal history of other malignant neoplasm of kidney; W18.30XA Fall on same level, unspecified, initial encounter; Y93.9 Activity, unspecified; Y92.009 Unspecified place in unspecified non-institutional (private) residence as the place of occurrence of the external cause; M06.9 Rheumatoid arthritis, unspecified; Z88.1 Allergy status to other antibiotic agents; Z88.2 Allergy status to sulfonamides; E29.1 Testicular hypofunction; Z87.11 Personal history of peptic ulcer disease
CPT/HCPCS: 36415; 71045; 72170; 80048; 80053; 81003; 81015; 82550; 82607; 82728; 82962; 83540; 83735; 84466; 84484; 85014; 85018; 85025; 85610; 85730; 88305; 88311; 93005; 93306; 96374; 96375; 97163; 99285; J0690; J1644; J1650; J2270; J2370; J2405; J2916; J3475; J7030; P9045; Q4081

== ENCOUNTER 2019-08-12 09:52 | Day surgery (SDC) | payer OTHER ==
--- OUTSIDE RECORDS SUMMARY | 2019-08-12 09:58 | XMS REPORT ---
:1935 Author Organization [facility] Address [address] [place] [address] Dr. Rogel [address] [place] [id number] Care Team Providers Name Role Phone Unavailable Unavailable Unavailable Problems This patient has no known problems. Allergies, Adverse Reactions, Alerts This patient has no known allergies or adverse reactions. Medications This patient has no known medications.
[2019-08-12] MEDS ORDERED: Ringers Lactate 1,000 ML IV ONE (10:35)
[2019-08-12 10:50] VITALS: O2SAT 100
[2019-08-12] MEDS: LIDOCAINE 1% W/EPI 1:100,000 MDV 20 ML VIAL ONE ×2 (12:42→12:57)
[2019-08-12 14:25] VITALS: BP 129/57; TEMP 97.7
--- NOTE | 2019-08-13 02:17 | OP ---
Date of Procedure: 08/12/2019 Surgeon: Hannah Carter MD Preoperative Diagnoses: Basal cell carcinoma, scalp and lesion of uncertain behavior, right cheek. Postoperative Diagnoses: Basal cell carcinoma, scalp and basal cell carcinoma, right cheek. Procedure Performed: 1. Excision of malignant skin lesion of the scalp, total diameter 1.5 cm. 2. Wide local excision of malignant skin lesion of the face, total size of defect 2 cm. Anesthesia: Local anesthetic only. Indication For Procedure: Mr. Lucia is an 83-year-old, who presented to the ENT clinic with biopsy confirmed basal cell carcinoma of the scalp and a new lesion on the right cheek noted a few weeks prior to the patient's appointment that seemed to occur suddenly. Due to patient's underlying dementia and prior poor tolerance of sedation and general anesthetic in combination with the presence of a scalp lesion and risk for significant bleeding, the decision was made to perform the procedure in the operating room without administration of systemic anesthetic agents. Description Of Procedure: The patient was brought to the operating room, he was placed supine. The face and scalp were prepped with Betadine and draped in a sterile fashion. The patient's vital signs were monitored by nursing staff and he was given maintenance IV fluids. The right cheek and right scalp were injected with 1% lidocaine with epinephrine. The right cheek was addressed first. There was an approximately 5 to 7 cm raised pearly-appearing lesion with mild hypervascularity. Its appearance was clinically suspicious for basal cell carcinoma. A gross margin of approximately 5 mm was designed around the lesion. The skin was incised with a scalpel and elevated sharply from the underlying subcutaneous tissues. The specimen was marked with a suture at the superior most aspect indicating 12 o' clock and sent to the pathologist for frozen section analysis. The surrounding tissues were undermined. Bleeding was controlled with Bovie electrocautery and when frozen section confirmed basal cell carcinoma with negative margins, the defect was closed in a layered fashion using 4-0 Vicryl deep sutures and a 5-0 fast-absorbing gut running suture for the skin. The patient was then asked to turn his head exposing the right scalp and the area of prior biopsy appeared healed without residual gross tumor, but due to concerns for microscopic residual disease, the area was injected with local anesthetic and the skin and subcutaneous tissue was cut using Bovie electrocautery with a narrow margin around the edge of the scar. The specimen was marked with a suture indicating the anterior-most aspect of the lesion and designated as 12 o'clock. This specimen was also sent to pathology for frozen section analysis. Frozen section confirmed scar with fibrosis consistent with prior biopsy, a solar elastosis without residual tumor, the defect was examined and was approximately 1.5 cm including the skin. 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 The wound was coated with antibacterial ointment and bandaged with a gauze and tape. The patient was then transported back to Day Surgery for observation and discharged home today in the care of his . Complications: None. Followup: The patient will follow up with Dr. Carter in 10 days for evaluation of healing. ALEXA Voice ID: [id number] Report ID: [id number] MTDD
== END 2019-08-12 14:10 | disposition home or self-care (01) ==
LOC: OR 09:52
PROVIDERS: ATTEND Otolaryngology
PROC: 0HB0XZZ Excision of Scalp Skin, External Approach (ICD-10-PCS; 2019-08-12)
PROC: 0HB1XZZ Excision of Face Skin, External Approach (ICD-10-PCS; principal; 2019-08-12 11:00)
DX: C44.41 Basal cell carcinoma of skin of scalp and neck (principal); C44.319 Basal cell carcinoma of skin of other parts of face; K21.9 Gastro-esophageal reflux disease without esophagitis; F03.90 Unspecified dementia, unspecified severity, without behavioral disturbance, psychotic disturbance, mood disturbance, and anxiety; Z85.528 Personal history of other malignant neoplasm of kidney; Z87.891 Personal history of nicotine dependence; Z83.3 Family history of diabetes mellitus; Z80.9 Family history of malignant neoplasm, unspecified
CPT/HCPCS: 88331; 88332; 88305; 11622; 11642; J7120

== ENCOUNTER 2020-07-13 14:27 | Emergency (ER) | payer OTHER ==
--- OUTSIDE RECORDS SUMMARY | 2020-07-13 14:30 | XMS REPORT | Continuity of Care Document ---
:[address] [facility] t Address [facility] [address] [place] [address] Care Team Providers Name Role Phone Tre Norton Attending Clinician Doctor Unassigned, Name Attending Clinician Unavailable Marie OLSEN, Gene Attending Clinician Problems Condition Condition Condition Status Onset Resolution Last Treating Co mments Source Name Details Category Date Date Treatment Clinician Date Alzheimer' Problem Active 2020-06-08 M emoria s disease 01:24:42 l (disorder) Roshan n Alzheimer' s disease (disorder) Active Problem 06/08/2020 [facility] Chronic Problem Active 2020-06-08 Wilner falguni renal 01:24:42 l failure Chronic Roshan n syndrome renal (disorder) failure syndrome (disorder) Active Problem 06/08/2020 [facility] History of Problem Active 2020-06-08 M emoria aortic 01:24:42 l valve History Yoshi replacemen of aortic t valve (situation replacemen ) t (situation ) Active Problem 06/08/2020 [facility] Hyperlipid Problem Active 2020-06-08 M emoria emia 01:24:42 l (disorder) Roshan n Hyperlipid emia (disorder) Active Problem 06/08/2020 [facility] Allergies, Adverse Reactions, Alerts Allergy Allergy Status Severity Reaction(s) Onset Inactive Treating Comm ents Source Name Type Date Date Clinician sulfa sulfa Active Memoria drugs drugs juan alberto Belle Levaquin Levaquin Active Heroori a juan alberto Belle Social History Smoking Status Start Date Stop Date Source Social History 2020-06-05 16:22:49 2020-06-05 16:22:49 Prudence Belle Medications Ordered Filled Start Stop Current Ordering Indication Dosage Frequency Signature Comments Components Source Medication Medication Date Date Medication? Clinician (SIG) Name Name 24 HR Yes = 1 patch, Memori a rivastigmin 9-29 TOP, l e 0.192 16:45: Daily, Yoshi MG/HR 00 apply to Transdermal area that Patch is [Exelon] clean/dry/ hairless & free of redness/ir ritation/b urns/cuts, # 90 patch, 1 Refill(s), Pharmacy: [facility] #[id number], 160.02, cm, 06/05/20 11:35:00 CDT, Height, 53.182, kg, 06/05/20 11:35:00 CDT, Weight 24 HR Yes = 1 patch, Memori a rivastigmin 4-29 TOP, l e 0.192 19:37: Daily, Yoshi MG/HR 00 apply to Transdermal area that Patch is [Exelon] clean/dry/ hairless & free of redness/ir ritation/b urns/cuts, # 90 patch, 1 Refill(s), Pharmacy: [facility] #[id number] 24 HR Yes = 1 patch, Memori a rivastigmin 3-03 TOP, l e 0.192 17:48: Daily, Yoshi MG/HR 00 apply to Transdermal area that Patch is [Exelon] clean/dry/ hairless & free of redness/ir ritation/b urns/cuts, # 30 patch, 2 Refill(s), Pharmacy: [facility] #[id number] 24 HR Yes 12.5 mg = Memoria Metoprolol 3-03 0.5 tab, l Tartrate 25 17:43: PO, Daily, Yoshi MG Extended 00 0 Release Refill(s) Tablet [Toprol] Exelon No TOP, Memoria 3-03 Daily, 0 l 17:43: Refill(s) [place] 00 pantoprazol Yes See Memori a e 40 mg 3-03 Instructio l oral 17:43: ns, 1 tab Yoshi enteric 00 PO twice a coated week, 0 tablet Refill(s) Vital Signs Vital Name Observation Time Observation Value Comments Source Systolic (mm Hg) 2020-06-05 16:22:00 Wilner rial [place] Diastolic (mm Hg) 2020-06-05 16:22:00 Mem orial [place] Heart Rate 2020-06-05 16:22:00 [facility] [place] Respitory Rate 2020-06-05 16:22:00 Memori al Yoshi Height 2020-06-05 16:22:00 160.02 cm [facility] [place] Weight 2020-06-05 16:22:00 [facility] [place] BMI Calculated 2020-06-05 16:22:00 Memori al [place] Systolic (mm Hg) 2019-11-08 17:36:00 Wilner rial Yoshi Diastolic (mm Hg) 2019-11-08 17:36:00 Mem orial [place] Heart Rate 2019-11-08 17:36:00 [facility] [place] Respitory Rate 2019-11-08 17:36:00 Memori al [place] Weight 2019-11-08 17:36:00 [facility] Procedures Procedure Date / Time Performed Performing Clinician Yessica sánchez AVR - Aortic valve [facility] Herm annia replacement<sup>1</sup> Encounters Start End Encounter Admission Attending Care Care Encounter Source Date/Time Date/Time Type Type Clinicians Facility Department ID 2020-06-05 2020-06-05 Outpatient LETHA NortonSCHER MHMISCHER [id number] 11:15:00 23:59:59 Joe 05 Tre 2020-04-13 2020-04-13 Outpatient LETHA NortonSCHER MHMISCHER [id number] 14:00:00 14:00:00 Joe 03 Tre 2020-04-13 2020-04-13 Outpatient LETHA NortonSCHER MHMISCHER [id number] 14:00:00 14:00:00 Joe 04 Tre 2019-12-21 2019-12-21 Outpatient LETHA NortonSCHER MHMISCHER [id number] 11:45:00 23:59:59 Joe 02 Tre 2019-12-15 2019-12-15 Outpatient LETHA NortonSCHER MHMISCHER [id number] 10:45:00 10:45:00 Joe 01 Tre 2019-11-14 2019-11-15 Outpatient MHMISCHER M[facility]ISCHER [id number] 09:25:21 23:59:59 00 2019-11-08 2019-11-08 Outpatient LETHA NortonSCHER MHMISCHER [id number] 11:30:00 23:59:59 Joe 00 Tre 2019-10-27 2019-10-27 Orders Doctor JA [id number] 00:00:00 00:00:00 Only Unassigned, BARBER [id number] [place] [facility] [phone] [id number] 2019-10-12 2019-10-12 [place] Marie, [facility] [id number] 00:00:00 00:00:00 Arthur Hogan [id number] Jay [id number] Professio [phone] nal 092 [facility] 2019-09-30 2019-09-30 [facility] [id number] 00:00:00 00:00:00 Arthur Hogan [id number] Jay [id number] Professio [phone] nal 2 [facility] Results This patient has no known results.
--- OUTSIDE RECORDS SUMMARY | 2020-07-13 14:30 | XMS REPORT | Continuity of Care Document ---
:1935 Author Organization [facility] Care Team Providers Name Role Phone [facility] Unavailable Un available Problems Problem Status Onset Classification Date Comments Sourc e Date Reported Alzheimer's Active Problem 06/08/2020 [facility] disease (disorder) N euro Chronic renal Active Problem 06/08/2020 Misch er failure syndrome Ajimie ro (disorder) History of aortic Active Problem 06/08/2020 M ischer valve replacement Ne uro (situation) Hyperlipidemia Active Problem 06/08/2020 Misc her (disorder) Neuro Medications Medication Details Route Status Patient Ordering Order Source Instructions Provider Date 24 HR = 1 patch, Active Mischer rivastigmine TOP, 020 Neuro 0.192 MG/HR Daily, Transdermal apply to Patch [Exelon] area that is clean/dry/ hairless & free of redness/ir ritation/b urns/cuts, # 90 patch, 1 Refill(s), Pharmacy: [facility] #[id number], 160.02, cm, 06/05/20 11:35:00 CDT, Height, 53.182, kg, 06/05/20 11:35:00 CDT, Weight 24 HR = 1 patch, Active Mischer rivastigmine TOP, 020 Neuro 0.192 MG/HR Daily, Transdermal apply to Patch [Exelon] area that is clean/dry/ hairless & free of redness/ir ritation/b urns/cuts, # 90 patch, 1 Refill(s), Pharmacy: [facility] #[id number] 24 HR = 1 patch, Active Mischer rivastigmine TOP, 020 Neuro 0.192 MG/HR Daily, Transdermal apply to Patch [Exelon] area that is clean/dry/ hairless & free of redness/ir ritation/b urns/cuts, # 30 patch, 2 Refill(s), Pharmacy: [facility] #[id number] 24 HR 12.5 mg = Active [facility]ischer Metoprolol 0.5 tab, 020 Neuro Tartrate 25 MG PO, Daily, Extended 0 Release Tablet Refill(s) [Toprol] [facility]elon [facility] Neuro Refill(s) pantoprazole 40 See Active Mischer mg oral enteric Instructio 020 Neuro coated tablet ns, 1 tab PO twice a week, 0 Refill(s) Allergies, Adverse Reactions, Alerts Substance Category Reaction Severity Reaction Status Date Comments S ource type Reported sulfa drugs Assertion Drug Active Mi kierra allergy Neuro Levaquin Assertion Drug Active Misch er allergy Neuro Immunizations No Data Provided for This Section Results No Data Provided for This Section Pathology Reports No Data Provided for This Section Diagnostic Reports No Data Provided for This Section Consultation Notes No Data Provided for This Section Discharge Summaries No Data Provided for This Section History and Physicals No Data Provided for This Section Vital Signs Vital Sign Value Date Comments Source Systolic (mm Hg) 109 06/05/2020 [facility] Jaimie ro Diastolic (mm Hg) 59 06/05/2020 [facility] Ne uro Heart Rate 61 06/05/2020 [facility] Neuro Respitory Rate 16 06/05/2020 [facility] Neuro Height 160.02 cm 06/05/2020 [facility] Neuro Weight 53.182 06/05/2020 [facility] Neuro BMI Calculated 20.77 06/05/2020 [facility] Neuro Systolic (mm Hg) 114 11/08/2019 [facility] Jaimie ro Diastolic (mm Hg) 59 11/08/2019 [facility] Ne uro Heart Rate 66 11/08/2019 [facility] Neuro Respitory Rate 16 11/08/2019 [facility] Neuro Weight 55.455 11/08/2019 [facility] Neuro Encounters Location Location Encounter Encounter Reason Attending ADM MO Stat us Source Details Type Number For Provider Date Date Visit Outpatient [id number] Joe Norton 11/07 [facility] [place] [facility] Outpatient [id number] Joe Norton 11/07 11/08 [facility] Neurology /2019 [facility] [place] [facility] Outside [id number] 11/13 11/15 [facility] Neurology Medical /2019 [facility] [place] Records [facility]NA Ambulatory [id number] Muna 12/14 12/14 [facility] Neurology Pre-Reg i /2019 [facility] [place] Outpatient [id number] Joe Nroton 12/20 [facility]2020 [facility] Outpatient [id number] Muna 12/20 12/21 [facility] /2019 [facility] [place] M[place]i Outpatient [id number] Joe Krell 04/13 [facility]2020 [place] Outpatient [id number] Joe Krell 04/13 [facility]2020 [place] [facility] Ambulatory [id number] Joe Krell 04/13 04/13 [facility] Pre-Reg /2019 [facility] [place] [facility] Ambulatory [id number] [place] 04/13 04/13 [facility] Pre-Reg [place] /2019 [facility] [place] Outpatient [id number] Joe Krell 06/05 [facility] Outpatient [id number] Antelmo 06/05 06/06 [facility] [place] /2019 [facility] [place] Outpatient [id number] Joe Krell 07/19 [facility]2019 [facility] Procedures Procedure Code Date Perfomer Comments Source AVR - Aortic [id number] Bovine [facility] valve replacement<sup> 1</sup> Assessment and Plan No Data Provided for This Section Plan of Care No Data Provided for This Section Social History Social History Date Source Social History TypeResponse 06/05/2020 [facility] Smoking Status Former smoker; Type: Cigarettes; Exposur e to Tobacco Smoke Unable to obtain; Cigarette Smoking Last 365 Days No; Reg Smoking Cessation Counseling No entered on: 06/05/20 Family History No Data Provided for This Section Advance Directives No Data Provided for This Section Functional Status No Data Provided for This Section
--- OUTSIDE RECORDS SUMMARY | 2020-07-13 14:30 | XMS REPORT | Summary of Care ---
:1935 Author Organization [facility] [place] Address [address] [place] [address]- phone Encounter HQ Encntr_alialdair(FIN) [id number] Date(s): 04/13/20 - 04/13/20 [facility] [address], [place] [address]- [phone] Attending Physician: Joe Norton MD Referring Physician: Antelmo Bell MD Vital Signs No data available for this section Problem List Condition Effective Dates Status Health Status Informant Alzheimer disease(Confirmed) Active Renal failure, chronic(Confirmed) Active S/P AVR(Confirmed) Active Hyperlipidemia(Confirmed) Active Allergies, Adverse Reactions, Alerts Substance Reaction Severity Status sulfa drugs Active Levaquin Active Medications No data available for this section Results No data available for this section Immunizations No data available for this section Procedures Procedure Date Related Diagnosis Body Site Status AVR - Aortic valve replacement1 Completed 1Bovine Social History Social History Type Response Smoking Status Former smoker; Type: Cigaret marianne; Exposure to Tobacco Smoke Unable to obtain; Cigarette Smoking Last 365 Days No; Reg Smoking Cessation Counseling No entered on: 12/21/19 Assessment and Plan No data available for this section
--- OUTSIDE RECORDS SUMMARY | 2020-07-13 14:30 | XMS REPORT | Summary of Care ---
:1935 Author Organization [facility] [place] Address [address] [place] [address]- Encounter HQ Joaquinntr_carri(FIN) [id number] Date(s): 04/13/20 - 04/13/20 [facility] [address], [place] [address]- [phone] Attending Physician: Joe Norton MD Vital Signs No data available for this section Problem List Condition Effective Dates Status Health Status Informant Alzheimer disease(Confirmed) Active Renal failure, chronic(Confirmed) Active S/P AVR(Confirmed) Active Hyperlipidemia(Confirmed) Active Allergies, Adverse Reactions, Alerts Substance Reaction Severity Status sulfa drugs Active Levaquin Active Medications Exelon 4.6 mg/24 hr transdermal film, extended release = 1 patch, TOP, Daily, apply to area that is clean/dry/hairless & free of redness/irritation/luciano/cuts, # 90 patch, 1 Refill(s), Pharmacy: [id number] Start Date: 01/04/20 Stop Date: 07/02/20 Status: Ordered Results No data available for this section [...]
--- OUTSIDE RECORDS SUMMARY | 2020-07-13 14:30 | XMS REPORT | Summary of Care ---
:1935 Author Organization [facility] [place] Address [address] [place] [address]- Encounter HQ Santos(FIN) [id number] Date(s): 06/05/20 - 06/05/20 [facility] [address], [place] [address]- [phone] Discharge Disposition: Home or Self Care Attending Physician: Joe Norton MD Referring Physician: Antelmo Bell MD Vital Signs Most recent to oldest [Reference Range]: 1 Height 160.02 cm (06/05/20 11:22 AM) Blood Pressure [90-140/60-90 mmHg] 109/59 mmHg (06/05/20 11:22 AM) Respiratory Rate [14-20 BRMIN] 16 BRMIN (06/05/20 11:22 AM) Peripheral Pulse Rate [60-100 bpm] 61 bpm (06/05/20 11:22 AM) Weight 53.182 kg (06/05/20 11:22 AM) Body Mass Index 20.77 m2 (06/05/20 11:22 AM) Problem List Condition Effective Dates Status Health [...] redness/irritation/luciano/cuts, # 90 patch, 1 Refill(s), Pharmacy: [facility] #[id number], 160.02, cm, 06/05/20 11:35:00 CDT, Height, 53.182, kg, 06/05/20 11:35:00 CDT, Weight Start Date: 06/05/20 Stop Date: 12/02/20 Status: Ordered Results No data available for [...] Smoking Cessation Counseling No entered on: 06/05/20 Assessment and Plan No data available for this section
--- NOTE | 2020-07-13 16:16 | RAD REPORT ---
EXAM DESCRIPTION: CT - Head C Spine Mpr Wo Con - 07/13/2020 3:54 pm CLINICAL HISTORY: Head and neck injury status post fall. Head and neck pain COMPARISON: 2012 MRI thoracic spine TECHNIQUE: Computed axial tomography of the head and cervical spine was obtained. Sagittal and coronal reconstruction was performed. All CT scans are performed using dose optimization technique as appropriate and may include automated exposure control or mA/KV adjustment according to patient size. FINDINGS: A right parietal scalp swelling. No skull fracture Mild low-density areas within periventricular, deep and subcortical white matter likely ischemic jimenez ges secondary to small vessel disease. Parafalcine lipoma is present. An intracranial bleed is not seen. The ventricles are normal in caliber. An extra-axial fluid collect ion is not noted.Fluid within the visualized sinuses and mastoids is not seen Chronic opacification left maxillary sinus A cervical fracture is not visualized. Anterior fusion involves C5, C6 and C7. Mild anterior subluxat ion C7 on T1. Mild to moderate chronic compression deformity T3 vertebral body. Spondylosis involves the cervical spine IMPRESSION: No acute intracranial abnormality is seen. A cervical fracture is not visualized. If the patient continues to have symptoms to suggest intracra nial /spinal cord/ligamentous pathology then MRI would be recommended
--- NOTE | 2020-07-13 16:23 | EDPHYS ---
Physician Documentation [facility] Name: Erik Lucia Jr Age: 84 yrs Sex: Male : 1935 Arrival Date: 07/13/2020 Time: 14:30 Bed 15 Private MD: Sylvain Higginbotham R ED Physician Tyrone Hernandez HPI: 07/13 16:20 This 84 yrs old Male presents to ER via Wheelchair with complaints of Fall snw Injury. 16:20 Details of fall: The patient fell from an upright position. Onset: The symptoms/episode snw began/occurred suddenly. Associated injuries: The patient sustained injury to the head, contusion, swelling. Severity of symptoms: At their worst the symptoms were mild. It is unknown whether or not the patient has had similar symptoms in the past. It is unknown whether or not the patient has recently seen a physician. No LOC. Historical: - Allergies: 14:56 Ciprofloxacin; ss 14:56 Levaquin; ss 14:56 Sulfa (Sulfonamide Antibiotics); ss - Immunization history:: Adult Immunizations up to date. - Social history:: Smoking status: Patient denies any tobacco usage or history of. ROS: 16:18 Constitutional: Negative for fever, chills, and weight loss, Eyes: Negative for injury, snw pain, redness, and discharge, ENT: Negative for injury, pain, and discharge, Neck: Negative for injury, pain, and swelling, Cardiovascular: Negative for chest pain, palpitations, and edema, Respiratory: Negative for shortness of breath, cough, wheezing, and pleuritic chest pain, Abdomen/GI: Negative for abdominal pain, nausea, vomiting, diarrhea, and constipation, Back: Negative for injury and pain, : Negative for injury, bleeding, discharge, and swelling, MS/Extremity: Negative for injury and deformity, Skin: Negative for injury, rash, and discoloration, Psych: Negative for depression, anxiety, suicide ideation, homicidal ideation, and hallucinations. 16:18 Neuro: Positive for pt tripped over walker while bending for his pocket knife in the front seat of the car. Fell and struck his head, no LOC, no vomiting. Pt with hx of alzheimer's. Pt does not take any medications. Exam: 16:16 Constitutional: This is a well developed, well nourished patient who is awake, alert, snw and in no acute distress. Head/Face: Normocephalic, atraumatic. Eyes: Pupils equal round and reactive to light, extra-ocular motions intact. Lids and lashes normal. Conjunctiva and sclera are non-icteric and not injected. Cornea within normal limits. Periorbital areas with no swelling, redness, or edema. ENT: Nares patent. No nasal discharge, no septal abnormalities noted. Tympanic membranes are normal and external auditory canals are clear. Oropharynx with no redness, swelling, or masses, exudates, or evidence of obstruction, uvula midline. Mucous membranes moist. Neck: Trachea midline, no thyromegaly or masses palpated, and no cervical lymphadenopathy. Supple, full range of motion without nuchal rigidity, or vertebral point tenderness. No Meningismus. Chest/axilla: Normal chest wall appearance and motion. Nontender with no deformity. No lesions are appreciated. Cardiovascular: Regular rate and rhythm with a normal S1 and S2. No gallops, murmurs, or rubs. Normal PMI, no JVD. No pulse deficits. Respiratory: Lungs have equal breath sounds bilaterally, clear to auscultation and percussion. No rales, rhonchi or wheezes noted. No increased work of breathing, no retractions or nasal flaring. Abdomen/GI: Soft, non-tender, with normal bowel sounds. No distension or tympany. No guarding or rebound. No evidence of tenderness throughout. Back: No spinal tenderness. No costovertebral tenderness. Full range of motion. Male : Normal genitalia with no discharge or lesions. Skin: Warm, dry with normal turgor. Normal color with no rashes, no lesions, and no evidence of cellulitis. MS/ Extremity: Pulses equal, no cyanosis. Neurovascular intact. Full, normal range of motion. Neuro: Awake and alert, GCS 15, oriented to person, place, time, and situation. Cranial nerves II-XII grossly intact. Motor strength 5/5 in all extremities. Sensory grossly intact. Cerebellar exam normal. right parietal area with contusion, half dollar sized swelling Psych: Awake, alert, with orientation to person, place and time. Behavior, mood, and affect are within normal limits. Vital Signs: 14:54 BP 98 / 63; Pulse 67; Resp 16; Temp 98.4(TE); Pulse Ox 100% on R/A; Weight 55.34 kg; ss Height 5 ft. 9 in. (175.26 cm); Pain 0/10; 16:42 BP 118 / 53; Pulse 57; Resp 17; Pulse Ox 100% ; Pain 0/10; ll1 14:54 Body Mass Index 18.02 (55.34 kg, 175.26 cm) ss MDM: 15:20 Patient medically screened. snw 16:24 Data reviewed: vital signs, nurses notes. Data interpreted: Pulse oximetry: on room air snw is 100 %. Interpretation: normal. Counseling: I had a detailed discussion with the patient and/or guardian regarding: the historical points, exam findings, and any diagnostic results supporting the discharge/admit diagnosis, radiology results, the need for outpatient follow up, to return to the emergency department if symptoms worsen or persist or if there are any questions or concerns that arise at home. Special discussion: Based on the patient's history, exam and DX evaluation, there is no indication for emergent intervention or inpatient TX. It is understood by the patient/guardian that if the SXs persist or worsen they need to return immediately for re-evaluation. Based on the history and exam findings, there is no indication for further emergent testing or inpatient evaluation. I discussed with the patient/guardian the need to see the primary care provider for further evaluation of the symptoms. 07/13 15:02 Order name: CT Head C Spine; Complete Time: 16:21 snw Administered Medications: No medications were administered Disposition: 07/13/20 16:23 Discharged to Home. Impression: Fall on same level from slipping, tripping and stumbling, Unspecified injury of head. - Condition is Stable. - Discharge Instructions: Facial or Scalp Contusion, Head Injury, Adult, Fall Prevention in the Home. - Medication Reconciliation Form, Thank You Letter, Antibiotic Education, Prescription Opioid Use form. - Follow up: Sylvain Higginbotham MD; When: 2 - 3 days; Reason: Recheck today's complaints, Continuance of care, Re-evaluation by your physician. Follow up: Emergency Department; When: As needed; Reason: Worsening of condition. - Problem is new. - Symptoms are unchanged. Addendum: 07/15/2020 19:02 Co-signature as Attending Physician, Tyrone Hernandez MD I agree with the assessment and k dr plan of care. Signatures: Dispatcher [employer] EDMS Tyrone Hernandez MD MD [facility] India Thornton, MAGNETIC LOCATER-C MAGNETIC LOCATER-Csnw Carmen Gaspar, RN RN Farhan Morris RN RN ll1 Corrections: (The following items were deleted from the chart) 07/13 16:45 16:23 07/13/2020 16:23 Discharged to Home. Impression: Fall on same level from ll1 slipping, tripping and stumbling; Unspecified injury of head. Condition is Stable. Forms are Medication Reconciliation Form, Thank You Letter, Antibiotic Education, Prescription Opioid Use. Follow up: Sylvain Higginbotham; When: 2 - 3 days; Reason: Recheck today's complaints, Continuance of care, Re-evaluation by your physician. Follow up: Emergency Department; When: As needed; Reason: Worsening of condition. Problem is new. Symptoms are unchanged. snw
--- NOTE | 2020-07-13 16:23 | ER ---
Nurse's Notes [facility] Name: Erik Lucia Jr Age: 84 yrs Sex: Male : 1935 Arrival Date: 07/13/2020 Time: 14:30 Bed 15 Private MD: Sylvain Higginbotham R Diagnosis: Fall on same level from slipping, tripping and stumbling;Unspecified injury of head Presentation: 07/13 14:54 Chief complaint: Spouse and/or significant other states: getting up from a chair and ss fell backwards onto floor, hitting head. Pt has no complaints at this time and reports that patient has been acting appropriately. - blood thinners, denies LOC. Coronavirus screen: Client denies travel out of the [place] in the last 14 days. Ebola Screen: Patient denies exposure to infectious person. Patient denies travel to an Ebola-affected area in the 21 days before illness onset. Initial Sepsis Screen: Does the patient meet any 2 criteria? No. Patient's initial sepsis screen is negative. Does the patient have a suspected source of infection? No. Patient's initial sepsis screen is negative. Risk Assessment: Do you want to hurt yourself or someone else? Patient reports no desire to harm self or others. Onset of symptoms was July 13, 2020. 14:54 Method Of Arrival: Wheelchair ss 14:54 Acuity: MARY 4 ss Historical: - Allergies: 14:56 Ciprofloxacin; ss 14:56 Levaquin; ss 14:56 Sulfa (Sulfonamide Antibiotics); ss - Immunization history:: Adult Immunizations up to date. - Social history:: Smoking status: Patient denies any tobacco usage or history of. Screenin:44 Abuse screen: Denies threats or abuse. Nutritional screening: No deficits noted. ll1 Tuberculosis screening: No symptoms or risk factors identified. Fall Risk Fall in past 12 months (25 points). Ambulatory Aid- Crutches/Cane/Walker (15 pts). Gait- Weak (10 pts.). Mental Status- Overestimates/Forgets Limitations (15 pts.). Total Castro Fall Scale indicates High Risk Score (45 or more points). Fall prevention measures have been instituted. Side Rails Up X 2 Placed Close to Nursing Station Frequent Obs/Assessments Occuring Family Present and informed to notify staff if the need to leave the bedside As available patient and family educated on Fall Prevention Program and Strategies. Assessment: 16:15 General: Appears in no apparent distress. Behavior is calm, cooperative, appropriate ll1 for age. General: family reports patient falling and hitting back of head. No LOC. No hematomas noted. Patient denies pain. . Pain: Denies pain. Neuro: Level of Consciousness is awake, alert, obeys commands, Oriented to person, place, time, Appropriate for age Medical Housekeeper are equal bilaterally Moves all extremities. Full function Gait is shuffling, Speech is normal, Facial symmetry appears normal, Denies headache. Musculoskeletal: Circulation, motion, and sensation intact. Capillary refill < 3 seconds, Range of motion: intact in all extremities, Denies head pain. Injury Description: Head injury Bruise. Vital Signs: 14:54 BP 98 / 63; Pulse 67; Resp 16; Temp 98.4(TE); Pulse Ox 100% on R/A; Weight 55.34 kg; ss Height 5 ft. 9 in. (175.26 cm); Pain 0/10; 16:42 BP 118 / 53; Pulse 57; Resp 17; Pulse Ox 100% ; Pain 0/10; ll1 14:54 Body Mass Index 18.02 (55.34 kg, 175.26 cm) ED Course: 14:30 Patient arrived in ED. mr 14:30 Sylvain Higginbotham MD is Private Physician. mr 14:55 Triage completed. ss 14:56 Arm band placed on right wrist. ss 15:02 Kang Beltre PA is PHCP. [facility] 15:02 Tyrone Hernandez MD is Attending Physician. [facility] 15:03 PHCP role handed off by Kang Beltre PA snw 15:03 India Thornton FNP-C is PHCP. snw 15:05 Farhan Morris RN is Primary Nurse. ll1 15:54 CT Head C Spine In Process Unspecified. EDMS 16:22 Sylvain Higginbotham MD is Referral Physician. snw 16:44 Patient has correct armband on for positive identification. Placed in gown. Bed in low ll1 position. Call light in reach. Side rails up X2. Pulse ox on. NIBP on. 16:45 No provider procedures requiring assistance completed. Patient did not have IV access ll1 during this emergency room visit. Administered Medications: No medications were administered Outcome: 16:23 Discharge ordered by . norah 16:45 Discharged to home via wheelchair. ll1 16:45 Condition: stable 16:45 Discharge instructions given to patient, family, Instructed on discharge instructions, follow up and referral plans. Demonstrated understanding of instructions, follow-up care. 16:45 Patient left the ED. ll1 Signatures: Dispatcher [employer] EDMS India Thornton, CARD DECORATOR-C CARD DECORATOR-Csnw Kang Beltre PA PA jmm Rivera, Mary mr Carmen Gaspar, RN RN Farhan Goodwin RN RN ll1
[2020-07-13 17:17] VITALS: TEMP 98.4; O2SAT 100
[2020-07-13 17:19] VITALS: BP 118/53
== END 2020-07-13 16:45 | disposition home or self-care (01) ==
LOC: ER 14:27
DX: S09.90XA Unspecified injury of head, initial encounter (principal); W18.09XA Striking against other object with subsequent fall, initial encounter; Y93.01 Activity, walking, marching and hiking; Y92.9 Unspecified place or not applicable; Z88.1 Allergy status to other antibiotic agents; Z88.2 Allergy status to sulfonamides; Z88.3 Allergy status to other anti-infective agents
CPT/HCPCS: 70450; 72125; 99283

== ENCOUNTER 2020-10-29 20:27 | Inpatient (IN) | payer OTHER ==
--- OUTSIDE RECORDS SUMMARY | 2020-10-29 20:30 | XMS REPORT | Continuity of Care Document ---
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 Ne uro (situation) Hyperlipidemia Active Problem 07/22/2020 Misc her (disorder) Neuro Medications Medication Details Route Status Patient Ordering Order Source Instructions Provider Date 24 HR = 1 patch, Active Mischer rivastigmine TOP, 020 Neuro 0.192 MG/HR Daily, Transdermal apply to Patch [Exelon] area that is clean/dry/ hairless & free of redness/ir ritation/b urns/cuts, # 90 patch, 1 Refill(s), Pharmacy: [facility] #[id number], 160.02, cm, 06/05/20 11:35:00 CDT, Height, 53.182, kg, 06/05/20 11:35:00 CDT, Weight 24 HR = 1 patch, Active Mischer rivastigmine TOP, 020 Neuro 0.192 MG/HR Daily, Transdermal apply to Patch [Exelon] area that is clean/dry/ hairless & free of redness/ir ritation/b urns/cuts, # 90 patch, 1 Refill(s), [facility]acy: [id number] 24 HR = 1 patch, Active [place]ischer rivastigmine TOP, 020 Neuro 0.192 MG/HR Daily, Transdermal apply to Patch [Exelon] area that is clean/dry/ hairless & free of redness/ir ritation/b urns/cuts, # 30 patch, 2 Refill(s), Pharmacy: [id number] 24 HR 12.5 mg = Active Mischer Metoprolol 0.5 tab, 020 Neuro Tartrate 25 MG PO, Daily, Extended 0 Release Tablet Refill(s) [Toprol] Exelon TOP, Inactive [facility] Daily, 0 020 Neuro Refill(s) pantoprazole 40 [...] Comments Source Systolic (mm Hg) 109 06/05/2020 [facility] Jaimie ro Diastolic (mm Hg) 59 06/05/2020 [facility] Ne uro Heart Rate 61 06/05/2020 [facility] Neuro Respitory Rate 16 06/05/2020 [facility] Height 160.02 cm 06/05/2020 [facility] Weight 53.182 06/05/2020 [facility] Neuro BMI Calculated 20.77 06/05/2020 [facility] Neuro Systolic (mm Hg) 114 11/08/2019 [facility] Jaimie ro Diastolic (mm Hg) 59 11/08/2019 [facility] Ne uro Heart Rate 66 11/08/2019 [facility] Neuro Respitory Rate 16 11/08/2019 [facility] Neuro Weight 55.455 11/08/2019 [facility] Neuro Encounters Location Location Encounter Encounter Reason Attending ADM DC Stat Source Details Type Number For Provider Date Date Visit Outpatient [id number] Joe [facility] Out[facility] [id number] Joe Norton 11/07 11/08 [facility] Neurology /2019 Neuro Mora MNA Outside [id number] 11/13 11/15 [facility] Neurology Medical /2019 Neuro Mora Records MNA Ambulatory [id number] Muna 12/14 12/14 [facility] Neurology Pre-Reg i /2019 Neuro Mor[place] Outpatient [id number] Joe Norton [facility] Outpatient [id number] [place] 12/20 12/21 [facility] Neurology i /2019 Neuro Mora [place] Outpatient [id number] Joe Krell 04/13 [facility] Outpatient [id number] Joe Krell 04/13 [facility] Ambulatory [id number] Joe Krell 04/13 04/13 [facility] Pre-Reg /2019 Neuro Mora MNA Ambulatory [id number] [place] 04/13 04/13 [facility] Pre-Reg Ray /2019 Neuro [place] Outpatient [id number] Joe Krell 06/05 [facility] MNA Outpatient [id number] [place] 06/05 06/06 [facility] Ray /2019 Neuro [place] Outpatient [id number] Joe Krell 07/19 [facility] Outpatient [id number] [place] 07/19 07/20 [facility] Ray /2019 Neuro Mora Procedures Procedure Code Date Perfomer Comments Source AVR - Aortic [id number] Bovine Mischer Neur o valve replacement<sup> 1</sup> Assessment and Plan No Data Provided for This Section Plan of Care No Data Provided for This Section Social History Social History Date Source Social History TypeResponse 07/19/2020 [facility] Neur o Smoking Status Former smoker; Type: Cigarettes; Exposur e to Tobacco Smoke Unable to obtain; Cigarette Smoking Last 365 Days No; Reg Smoking Cessation Counseling No entered on: 07/19/20 Family History No Data Provided for This Section Advance Directives No Data Provided for This Section Functional Status No Data Provided for This Section
--- OUTSIDE RECORDS SUMMARY | 2020-10-29 20:30 | XMS REPORT | Continuity of Care Document ---
:[address] [facility] t Address [facility] [address] [place] [address] Care Team Providers Name Role Phone Tre Norton Attending Clinician Doctor Unassigned, Name Attending Clinician Unavailable Marie OLSEN, Gene Attending Clinician Problems Condition Condition Condition Status Onset Resolution Last Treating Co mments Source Name Details Category Date Date Treatment Clinician Date Alzheimer' Problem Active 2020-07-22 M emoria s disease 01:18:09 l (disorder) Roshan n Alzheimer' s disease (disorder) Active Problem 07/22/2020 [facility] Neuro Chronic Problem Active 2020-07-22 Wilner falguni renal 01:18:09 l failure Chronic Roshan n syndrome renal (disorder) failure syndrome (disorder) Active Problem 07/22/2020 [facility] Neuro History of Problem Active 2020-07-22 M emoria aortic 01:18:09 l valve History [place] replacemen of aortic t valve (situation replacemen ) t (situation ) Active Problem 07/22/2020 [facility] Neuro Hyperlipid Problem Active 2020-07-22 M emoria emia 01:18:09 l (disorder) Roshan n Hyperlipid emia (disorder) Active Problem 07/22/2020 [facility] Neuro Allergies, Adverse Reactions, Alerts Allergy Allergy Status Severity Reaction(s) Onset Inactive Treating Comm ents Source Name Type Date Date Clinician sulfa sulfa Active Memoria drugs drugs juan alberto Belle Levaquin Levaquin Active Heroori a juan alberto Belle Social History Smoking Status Start Date Stop Date Source Social History 2020-07-19 21:08:40 2020-07-19 21:08:40 Prudence Belle Medications Ordered Filled Start Stop Current Ordering Indication Dosage Frequency Signature Comments Components Source Medication Medication Date Date Medication? Clinician (SIG) Name Name 24 HR Yes = 1 patch, Memori a rivastigmin 9- TOP, l e 0.192 16:45: Daily, Yoshi MG/HR 00 apply to Transdermal area that Patch is [Exelon] clean/dry/ hairless & free of redness/ir ritation/b urns/cuts, # 90 patch, 1 Refill(s), Pharmacy: [facility] #[id number], 160.02, cm, 06/05/20 11:35:00 CDT, Height, 53.182, kg, 06/05/20 11:35:00 CDT, Weight 24 HR Yes = 1 patch, Memori a rivastigmin 4-29 TOP, l e 0.192 19:37: Daily, Yoshi MG/HR 00 apply to Transdermal area that Patch is [Exelon] clean/dry/ hairless & free of redness/ir ritation/b urns/cuts, # 90 patch, 1 Refill(s), Pharmacy: [facility] #[id number] 24 HR Yes = 1 patch, Memori a rivastigmin 3-03 TOP, l e 0.192 17:48: Daily, [place] MG/HR 00 apply to Transdermal area that Patch is [Exelon] clean/dry/ hairless & free of redness/ir ritation/b urns/cuts, # 30 patch, 2 Refill(s), Pharmacy: [facility] #[id number] 24 HR Yes 12.5 mg = Memoria Metoprolol 3-03 0.5 tab, l Tartrate 25 17:43: PO, Daily, [place] MG Extended 00 0 Release Refill(s) Tablet [Toprol] Exelon No TOP, Memoria 3-03 Daily, 0 l 17:43: Refill(s) Yoshi 00 pantoprazol Yes See Memori a e 40 mg 3-03 Instructio l oral 17:43: ns, 1 tab Yoshi enteric 00 PO twice a coated week, 0 tablet Refill(s) Vital Signs Vital Name Observation Time Observation Value Comments Source Systolic (mm Hg) 2020-06-05 16:22:00 Wilner rial [place] Diastolic (mm Hg) 2020-06-05 16:22:00 Mem orial [place] Heart Rate 2020-06-05 16:22:00 [facility] [place] Respitory Rate 2020-06-05 16:22:00 Memori al [place] Height 2020-06-05 16:22:00 160.02 cm [facility] Weight 2020-06-05 16:22:00 [facility] [place] BMI Calculated 2020-06-05 16:22:00 Memori al [place] Systolic (mm Hg) 2019-11-08 17:36:00 Wilner rial [place] Diastolic (mm Hg) 2019-11-08 17:36:00 Mem orial [place] Heart Rate 2019-11-08 17:36:00 [facility] [place] Respitory Rate 2019-11-08 17:36:00 Memori al [place] Weight 2019-11-08 17:36:00 [facility] Procedures Procedure Date / Time Performed Performing Clinician [facility] e AVR - Aortic valve [facility] Herm annia replacement<sup>1</sup> Encounters Start End Encounter Admission Attending Care Care Encounter Source Date/Time Date/Time Type Type Clinicians Facility Department ID 2020-07-19 2020-07-19 Outpatient LETHA NortonSCHER MHMISCHER [id number] 14:45:00 23:59:59 Joe Tre 2020-06-05 2020-06-05 Outpatient LETHA NortonSCHER MHMISCHER [id number] 11:15:00 23:59:59 Joe 05 Tre 2020-04-13 2020-04-13 Outpatient ELTHA NortonSCHER MHMISCHER [id number] 14:00:00 14:00:00 Joe 03 Tre 2020-04-13 2020-04-13 Outpatient LETHA NortonSCHER MHMISCHER [id number] 14:00:00 14:00:00 Joe 04 Tre 2019-12-21 2019-12-21 Outpatient LETHA NortonSCHER MHMISCHER [id number] 11:45:00 23:59:59 Joe 02 Tre 2019-12-15 2019-12-15 Outpatient JW NortonMISCHER MHMISCHER [id number] 10:45:00 10:45:00 Joe 01 Tre 2019-11-14 2019-11-15 Outpatient MHMISCHER MHMISCHER [id number] 09:25:21 23:59:59 00 2019-11-08 2019-11-08 Outpatient NAN Norton [facility][1] [id number] 11:30:00 23:59:59 Joe Arcelia [place] 2019-10-27 2019-10-27 Orders Doctor JA [id number] 00:00:00 00:00:00 Only Unassigned, BARBER [id number] [place] [facility] [id number] 2019-10-12 2019-10-12 [facility] [id number] 00:00:00 00:00:00 Arthur Hogan [id number] [place] [id number] Professio [phone] nal 092 [facility] 2019-09-30 2019-09-30 Refill [facility] [id number] 00:00:00 00:00:00 Arthur Hogan [id number] [place] [id number] Professio [phone] [facility] Results This patient has no known results.
[2020-10-29 20:54] LABS: Absolute Lymphocytes (CBC) 1.5 K/uL (0.7-4.9); Basophils % 1.3 % (0-1.3); Hematocrit 30.3 % (39.6-49.0); Lymphocytes % 17.8 % (15.3-44.8); MPV 9.1 fL (7.6-11.3); RBC Red Blood Cell Count 3.28 M/uL (4.33-5.43)
[2020-10-29 20:55] LABS: Protime INR 0.86
[2020-10-29] MEDS ORDERED: NA CHLORIDE 0.9% 500 ML ONE (21:01)
[2020-10-29 21:50] LABS: ALT/SGPT 34 U/L (12-78); AST/SGOT 22 U/L (15-37); Alkaline Phosphatase 98 U/L (45-117); BUN Blood Urea Nitrogen 40 mg/dL (7-18); Bicarbonate 17 mmol/L (21-32); Bilirubin Direct < 0.1 mg/dL (0-0.2); Bilirubin Total 0.2 mg/dL (0.2-1.0); Glucose Level 57 mg/dL (74-106); Magnesium 2.1 mg/dL (1.8-2.4); NT PRO-BNP 746 pg/mL (<450); Potassium 3.8 mmol/L (3.5-5.1); Protein, Total 6.3 g/dL (6.4-8.2); Sodium Level 143 mmol/L (136-145)
[2020-10-29 21:51] LABS: Troponin (Emerg Dept Use Only) 0.77 ng/mL (0.0-0.045)
[2020-10-29] MEDS ORDERED: ASPIRIN 81 MG CHEWABLE TABLET ONE (22:40)
--- NOTE | 2020-10-29 22:55 | EDPHYS ---
Physician Documentation [facility] Name: Erik Lucia Jr Age: 84 yrs Sex: Male : 1935 Arrival Date: 10/29/2020 Time: 20:28 Bed 23 Private MD: ED Physician Marino Strickland HPI: 10/29 20:43 This 84 yrs old Male presents to ER via EMS with complaints of Dizziness. pm1 20:43 The patient presents with dizziness. Onset: The symptoms/episode began/occurred just pm1 prior to arrival. Context: occurred at home, occurred while the patient was defecating, and standing up after using the restroom. just prior to the episode the patient experienced abdominal pain, upper area for approximately 3 days. Sensation of constipation. Modifying factors: The symptoms are alleviated by nothing, the symptoms are aggravated by nothing. Associated signs and symptoms: Pertinent negatives: chest pain, shortness of breath. Patient's baseline: The patient has a previous history of dementia. Patient unable to provide reliable information due dementia. Alert to name, not situation or place. Information obtained primarily from EMS report. Historical: - Allergies: 20:34 Ciprofloxacin; mg2 20:34 Levaquin; mg2 20:34 Sulfa (Sulfonamide Antibiotics); mg2 - Home Meds: 20:34 Amitriptyline Oral [Active]; Metoprolol Tartrate Oral [Active]; testosterone mg2 transdermal [Active]; - PMHx: 20:34 RBBB; 1 kidney; mg2 - Immunization history:: Flu vaccine status is unknown. - Social history:: Smoking status: unknown. ROS: 20:43 Unable to obtain ROS due to baseline dementia. pm1 20:43 Constitutional: Negative for fever, chills, and weight loss, Cardiovascular: Negative pm1 for chest pain, palpitations, and edema, Respiratory: Negative for shortness of breath, cough, wheezing, and pleuritic chest pain. 20:43 Back: Negative for injury and pain, MS/Extremity: Negative for injury and deformity, Skin: Negative for injury, rash, and discoloration. 20:43 Abdomen/GI: Positive for abdominal pain, constipation, of the right upper quadrant and left upper quadrant, Negative for nausea, vomiting, and diarrhea. Exam: 20:43 Constitutional: This is a well developed, well nourished patient who is awake, alert, pm1 and in no acute distress. Head/Face: Normocephalic, atraumatic. 20:43 Skin: Warm, dry with normal turgor. Normal color with no rashes, no lesions, and no evidence of cellulitis. MS/ Extremity: Pulses equal, no cyanosis. Neurovascular intact. Full, normal range of motion. 20:43 Cardiovascular: Rate: normal, Rhythm: regular, Pulses: no pulse deficits are appreciated, Heart sounds: murmur, systolic, heard in the aortic area, Edema: is not appreciated. 20:43 Respiratory: Exam negative for acute changes, respiratory distress, shortness of breath, the patient does not display signs of respiratory distress. 20:43 Abdomen/GI: Inspection: scar(s), are noted in the midline from upper to lower abdomen, Palpation: abdomen is soft and non-tender, in all quadrants. 20:43 Neuro: Orientation: to person, Not oriented to place, time, situation, Motor: is normal, moves all fours. Vital Signs: 20:30 BP 109 / 58; Pulse 72; Resp 18; Temp 97.6; Pulse Ox 100% on R/A; Weight 56.7 kg; mg2 21:25 BP 104 / 55; Pulse 76; Resp 18; Pulse Ox 98% on R/A; mg2 22:49 Pulse 64; Resp 18; Pulse Ox 100% on R/A; mg2 23:29 BP 114 / 56; Pulse 65; Resp 18; Pulse Ox 100% on R/A; mg2 MDM: 20:37 Patient medically screened. pm1 22:04 Data reviewed: vital signs. Data interpreted: Pulse oximetry: on room air is 98 %. pm1 Interpretation: normal. 22:26 Counseling: I had a detailed discussion with the patient and/or guardian regarding: the pm1 historical points, exam findings, and any diagnostic results supporting the discharge/admit diagnosis, lab results, the need for further work-up and treatment in the hospital. 22:31 Physician consultation: William Parra MD was called at 22:08, was contacted at 22:25, pm1 regarding consult, patient's condition, and will see patient would like medications started, Lovenox, and aspirin only. 10/29 20:37 Order name: Basic Metabolic Panel pm1 10/29 20:37 Order name: CBC with Diff pm1 10/29 20:37 Order name: LFT's pm10/29 20:37 Order name: Magnesium pm10/29 20:37 Order name: NT PRO-BNP; Complete Time: 21:55 pm1 10/29 20:37 Order name: PT-INR; Complete Time: 20:58 pm1 10/29 20:37 Order name: Troponin (emerg Dept Use Only); Complete Time: 21:55 pm1 10/29 20:38 Order name: Basic Metabolic Panel; Complete Time: 21:55 EDMS 10/29 20:38 Order name: CBC with Automated Diff; Complete Time: 20:58 EDMS 10/29 20:38 Order name: Liver (Hepatic) Function; Complete Time: 21:55 EDMS 10/29 20:38 Order name: Magnesium; Complete Time: 21:55 EDMS 10/29 22:28 Order name: COVID-19 : Document "Date of Symptom Onset" if Symptomatic. mg2 10/29 23:00 Order name: Urine Microscopic Only pm10/29 23:39 Order name: Liver (Hepatic) Function; Complete Time: 01:45 EDMS 10/29 20:37 Order name: XRAY Chest (1 view); Complete Time: 14:12 pm10/29 20:37 Order name: EKG; Complete Time: 20:38 pm10/29 20:37 Order name: CT Head Brain wo Cont; Complete Time: 14:12 pm10/29 21:53 Order name: Abdomen ; Complete Time: 14:12 EDMS 10/29 23:39 Order name: Comprehensive Metabolic Panel EDMS 10/29 23:39 Order name: Comprehensive Metabolic Panel; Complete Time: 14:12 EDMS 10/29 23:39 Order name: Troponin I EDMS 10/29 23:39 Order name: Troponin I; Complete Time: 14:12 EDMS 10/29 23:46 Order name: SARS-COV-2 RT PCR; Complete Time: 00:15 EDMS 10/30 05:09 Order name: CBC with Automated Diff; Complete Time: 14:12 EDMS 10/30 05:35 Order name: Troponin I; Complete Time: 14:12 EDMS 10/30 09:16 Order name: US; Complete Time: 14:12 EDMS 10/29 20:37 Order name: Cardiac monitoring; Complete Time: 20:40 pm1 10/29 20:37 Order name: EKG - Nurse/Tech; Complete Time: 20:40 pm1 10/29 20:37 Order name: IV Saline Lock; Complete Time: 20:40 pm1 10/29 20:37 Order name: Labs collected and sent; Complete Time: 20:40 pm1 10/29 20:37 Order name: O2 Per Protocol; Complete Time: 20:40 pm1 10/29 20:37 Order name: O2 Sat Monitoring; Complete Time: 20:40 pm1 10/29 23:39 Order name: CONS Pharmacy Consult EDMS 10/29 23:39 Order name: CONS Physician Consult EDMS 10/29 23:51 Order name: CONS Physician Consult EDMS Administered Medications: 20:40 Drug: NS 0.9% 500 ml Route: IV; Rate: bolus; Site: right antecubital; mg2 22:27 Drug: Aspirin Chewable Tablet 324 mg Route: PO; mg2 10/30 00:16 Follow up: Response: No adverse reaction mg2 10/29 22:41 Drug: Lovenox 1 mg/kg Route: Sub-Q; Site: left upper abdomen; mg2 23:59 Follow up: Response: No adverse reaction mg2 Disposition: 10/31 08:05 Co-signature as Attending Physician, Marino Strickland MD I agree with the assessment and tw4 plan of care. Disposition: 10/29/20 22:36 Hospitalization ordered by Shelby Womack for Inpatient Admission. Preliminary diagnosis is Non-ST elevation (NSTEMI) myocardial infarction. - Bed requested for Telemetry/MedSurg (Inpatient). - Status is Inpatient Admission. tw2 - Condition is Stable. - Problem is new. - Symptoms have improved. Signatures: Dispatcher [employer] EDME Kathy Morse Cindy, RN RN cg Shane Will, OCEANOLOGIST OCEANOLOGIST pm1 Candice Candelario RN RN tw2 Marino Strickland MD MD tw4 Wilton Chanel RN RN mg2 Corrections: (The following items were deleted from the chart) 10/29 21:53 20:38 Abdomen W/ Con+CT.RAD.BRZ ordered. EDME EDME 10/30 00:00 10/29 22:36 Hospitalization Ordered by Shelby Womack MD for Inpatient Admission. cg Preliminary diagnosis is Non-ST elevation (NSTEMI) myocardial infarction. Bed requested for Telemetry/MedSurg (Inpatient). Status is Inpatient Admission. Condition is Stable. Problem is new. Symptoms have improved. pm1 10/30 07:58 00:00 10/29/2020 22:36 Hospitalization Ordered by Shelby Womack MD for Inpatient bd Admission. Preliminary diagnosis is Non-ST elevation (NSTEMI) myocardial infarction. Bed requested for [facility] ER HOLD. Status is Inpatient Admission. Condition is Stable. Problem is new. Symptoms have improved. cg 09:35 07:58 10/29/2020 22:36 Hospitalization Ordered by Shelby Womack MD for Inpatient tw2 Admission. Preliminary diagnosis is Non-ST elevation (NSTEMI) myocardial infarction. Bed requested for Telemetry/MedSurg (Inpatient). Status is Inpatient Admission. Condition is Stable. Problem is new. Symptoms have improved. bd
--- NOTE | 2020-10-29 22:55 | ER ---
Nurse's Notes [facility] Name: Erik Lucia Jr Age: 84 yrs Sex: Male : 1935 Arrival Date: 10/29/2020 Time: 20:28 Bed 23 Private MD: Diagnosis: Non-ST elevation (NSTEMI) myocardial infarction Presentation: 10/29 20:30 Chief complaint: EMS states: said patient was taking a bowel movement got up and mg2 felt dizzy. he has been constipated for 3 days, complaining of upper abdominal discomfort. BGL-125 mg/dl. hx of dementia. Coronavirus screen: Client denies travel out of the [place] in the last 14 days. At this time, the client does not indicate any symptoms associated with coronavirus-19. Ebola Screen: No symptoms or risks identified at this time. Initial Sepsis Screen: Does the patient meet any 2 criteria? No. Patient's initial sepsis screen is negative. Does the patient have a suspected source of infection? No. Patient's initial sepsis screen is negative. Risk Assessment: Do you want to hurt yourself or someone else? Patient reports no desire to harm self or others. Onset of symptoms was October 29, 2020. 20:30 Method Of Arrival: EMS: [facility] mg2 20:30 Acuity: MARY 3 mg2 Triage Assessment: 20:35 General: Appears in no apparent distress. comfortable, Behavior is calm, cooperative. mg2 Pain: Complains of pain in abdomen. EENT: No signs and/or symptoms were reported regarding the EENT system. Neuro: Level of Consciousness is awake, alert, obeys commands, Oriented to person, place, time, situation. Cardiovascular: Capillary refill < 3 seconds Patient's skin is warm and dry. Respiratory: Airway is patent Respiratory effort is even, unlabored, Respiratory pattern is regular, symmetrical. GI: Reports upper abdominal pain. : No signs and/or symptoms were reported regarding the genitourinary system. Derm: Skin is intact, is healthy with good turgor, Skin is pink, warm \T\ dry. normal. Musculoskeletal: Circulation, motion, and sensation intact. Capillary refill < 3 seconds. Historical: - Allergies: 20:34 Ciprofloxacin; mg2 20:34 Levaquin; mg2 20:34 Sulfa (Sulfonamide Antibiotics); mg2 - Home Meds: 20:34 Amitriptyline Oral [Active]; Metoprolol Tartrate Oral [Active]; testosterone mg2 transdermal [Active]; - PMHx: 20:34 RBBB; 1 kidney; mg2 - Immunization history:: Flu vaccine status is unknown. - Social history:: Smoking status: unknown. Screenin:51 Abuse screen: Denies threats or abuse. Nutritional screening: No deficits noted. em Tuberculosis screening: No symptoms or risk factors identified. Fall Risk None identified. Assessment: 21:25 Reassessment: see triage assessment. mg2 22:50 Reassessment: Patient appears in no apparent distress at this time. Patient and/or mg2 family updated on plan of care and expected duration. Pain level reassessed. Patient is alert, oriented x 3, equal unlabored respirations, skin warm/dry/pink. patient informed about the plan for admission. 23:30 Reassessment: Patient and/or family updated on plan of care and expected duration. Pain mg2 level reassessed. Patient is alert, oriented x 3, equal unlabored respirations, skin warm/dry/pink. Vital Signs: 20:30 BP 109 / 58; Pulse 72; Resp 18; Temp 97.6; Pulse Ox 100% on R/A; Weight 56.7 kg; mg2 21:25 BP 104 / 55; Pulse 76; Resp 18; Pulse Ox 98% on R/A; mg2 22:49 Pulse 64; Resp 18; Pulse Ox 100% on R/A; mg2 23:29 BP 114 / 56; Pulse 65; Resp 18; Pulse Ox 100% on R/A; mg2 ED Course: 20:28 Patient arrived in ED. cl3 20:30 Wilton Chanel, JEREL is Primary Nurse. mg2 20:31 Shane Will NP is PHCP. pm1 20:31 Marino Strickland MD is Attending Physician. pm1 20:33 Triage completed. mg2 20:35 Inserted saline lock: 20 gauge in right antecubital area, using aseptic technique. mg2 Blood collected. 20:36 Arm band placed on. mg2 20:51 Patient has correct armband on for positive identification. Placed in gown. Bed in low em position. Call light in reach. Side rails up X2. library monitor on. Pulse ox on. NIBP on. 21:16 XRAY Chest (1 view) In Process Unspecified. EDMS 21:25 No provider procedures requiring assistance completed. mg2 21:26 Door closed. Warm blanket given. Cleaned of incontinence. mg2 21:51 Notified Nurse Practitioner and/or Physician Meat Press Operator of a critical lab result(s), em trop. 0.77. 22:09 CT Head Brain wo Cont In Process Unspecified. EDMS 22:14 Abdomen In Process Unspecified. EDMS 22:35 Shelby Womack MD is Hospitalizing Provider. pm1 22:50 COVID swab sent to lab. Patient admitted, IV remains in place. mg2 10/30 07:18 Primary Nurse role handed off by Wilton Chanel RN bd 08:06 Candice Candelario RN is Primary Nurse. tw2 Administered Medications: 10/29 20:40 Drug: NS 0.9% 500 ml Route: IV; Rate: bolus; Site: right antecubital; mg2 22:27 Drug: Aspirin Chewable Tablet 324 mg Route: PO; mg2 10/30 00:16 Follow up: Response: No adverse reaction mg2 10/29 22:41 Drug: Lovenox 1 mg/kg Route: Sub-Q; Site: left upper abdomen; mg2 23:59 Follow up: Response: No adverse reaction mg2 Outcome: 22:36 Decision to Hospitalize by Provider. pm1 10/30 00:16 Admitted to ER Hold. Please see [facility] for further documentation. mg2 Condition: stable Instructed on the need for admit. 09:35 Patient left the ED. tw2 Signatures: Dispatcher [employer] EDMS Kathy Morse Buddy Rodriguez, RN RN em Shane Will, TRACI ADDICTION SPECIALIST pm1 Candice Candelario, JEREL RN tw2 Wilton Chanel, JEREL RN [facility] Scooter Morris cl3
[2020-10-29] MEDS ORDERED: ENOXAPARIN 60 MG/0.6 ML SQ ONE (22:56)
[2020-10-29] MEDS ORDERED: ONDANSETRON 4 MG/2 ML VIAL IV PRN (23:35)
[2020-10-29] MEDS ORDERED: MORPHINE 2 MG/ML SYR IV PRN (23:35)
[2020-10-29] MEDS ORDERED: ALBUTEROL 2.5 MG/3 ML NEB SOL NEB PRN (23:35)
[2020-10-29] MEDS ORDERED: ACETAMINOPHEN 500 MG TAB PO PRN (23:35)
[2020-10-29] MEDS: SODIUM BICARB 325 MG TAB PO SCH (23:39)
[2020-10-29] MEDS: D5 0.9 NS 1,000 ML IV SCH (23:45)
--- NOTE | 2020-10-29 23:47 | P.HP ---
Certification for Inpatient Patient admitted to: Observation With expected LOS: <2 Midnights Patient will require the following post-hospital care: None Practitioner: I am a practitioner with admitting privileges, knowledge of patient current condition, hospital course, and medical plan of care. 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 is primary caregiver states he has had 2 episodes of these shakiness that last for about 5 min since the last 1 week. She denies symptoms related to seizure although she reports he has had 1 episode of seizure before in setting of Levaquin use 5 years ago. She states he was allowed town for an talking with her during this episode of check cane. She has brought in to the ED because of the complain of dizziness. In the ED had borderline low blood pressure was noted with mild elevated troponin of 0.77. Patient is at although poor historian, is at bedside is providing history. They both denies patient having any chest pain or shortness of breath.. Allergies ciprofloxacin [From Cipro] Allergy (Severe, Verified 08/11/19 13:51) Anaphylaxis levofloxacin [From Levaquin] Allergy (Severe, Verified 08/11/19 13:51) Anaphylaxis Sulfa (Sulfonamide Ant Allergy (Uncoded 08/11/19 13:51) Unknown Home Medications: Metoprolol Succinate [Toprol Xl] 25 mg PO DAILY 12/15/11 Amitriptyline [Elavil*] 0.5 tab PO BEDTIME 03/11/18 Testost Cypionate [Depo-Testosterone*] 1 ml IM Q7D 03/11/18 Ferrous Sulfate [Iron] 325 mg PO DAILY 08/11/19 Naphazoline HCl/Pheniramine [Eye Allergy Relief Drops] 1 gtt OP DAILY 08/11/19 Rivastigmine Patch [Exelon 4.6 mg Patch] 1 each TD DAILY 08/11/19 - Past Medical/Surgical History Diabetic: No -: Hypertension -: Chronic renal disease -: History left nephrectomy secondary to renal cell carcinoma -: History aortic valve replacement-bovine -: Low testosterone -: gastric ulcers -: Left nephrectomy -: Aortic valve replacement -: partial stomach removal -: multiple back surgeries -: bilateral feet sx Psychosocial/ Personal History: The patient is of 64 years. He has 3 children. - Family History Mother -: Cancer - Social History Smoking Status: Never smoker Alcohol use: No CD- Drugs: No Caffeine use: Yes Review of Systems is unable to be obtained Physical Examination - Physical Exam General: Alert, In no apparent distress, Oriented x1, Cooperative HEENT: Atraumatic, Normocephalic, PERRLA Neck: Supple, 2+ carotid pulse no bruit, JVD not distended Respiratory: Clear to auscultation bilaterally, Normal air movement Cardiovascular: No edema, Normal pulses, Regular rate/rhythm Capillary refill: <2 Seconds Gastrointestinal: Normal bowel sounds, Soft and benign, Non-distended, Other (diapers with loose stools insitu ) Musculoskeletal: No clubbing, No swelling Integumentary: No rashes, No breakdown Neurological: Normal speech, Normal strength at 5/5 x4 extr - Studies Laboratory Data (last 24 hrs) 10/29/20 20:40: PT 9.9, INR 0.86 10/29/20 20:40: WBC 8.70, Hgb 10.2 L, Hct 30.3 L, Plt Count 211 10/29/20 20:40: Sodium 143, Potassium 3.8, BUN 40 H, Creatinine 2.09 H, Glucose 57 L, Magnesium 2.1, Total Bilirubin 0.2, AST 22, ALT 34, Alkaline Phosphatase 98 Assessment and Plan - Problems (Diagnosis) (1) Chronic diarrhea Current Visit: Yes Status: Acute (2) Dizziness Current Visit: Yes Status: Acute (3) Elevated troponin Current Visit: Yes Status: Acute (4) Anemia Current Visit: No Status: Chronic Qualifiers: (5) Hypertension Onset Date: 03/12/18 Current Visit: No Status: Chronic Qualifiers: - Advance Directives Does patient have a Living Will: No Does patient have a Durable POA for Healthcare: No Physician Review Additional Text: # Dizziness-may be due to increase/loose bowel movements from short bowel syndrome with superimposed Exelon use for dementia -possibility of increase cholinergic activation suspected - will Dc Exelon patch -start gentle IV fluid -present of non-anion gap metabolic acidosis likely consistent with increased diarrhea as well as physical exam of patient having watery diarrhea in diaper # ELEVATED TROPONIN-may be demand mediated, follow trend Will consult Cardiology Hypertension-controlled, follow orthostatics vitals Dementia-stable Teresa p.r.n. CKD stage 3-stable creatinine at 2.3 Metabolic acidosis-Renal consult, start sodium bicarb -likely due to GI loss DVT prophylaxis-subcutaneous heparin Advanced directive-discussed with , she wishes trial full code Time Spent Managing Pts Care (In Minutes): 65
[2020-10-30 01:12] VITALS: BMI 20.9
[2020-10-30 01:40] LABS: ALT/SGPT 27 U/L (12-78); AST/SGOT 17 U/L (15-37); Albumin 2.6 g/dL (3.4-5.0); Alkaline Phosphatase 79 U/L (45-117); Bilirubin Direct < 0.1 mg/dL (0-0.2); Bilirubin Total 0.3 mg/dL (0.2-1.0); Protein, Total 5.3 g/dL (6.4-8.2)
[2020-10-30] MEDS ORDERED: SODIUM BICARB 325 MG TAB PO ONE (02:11)
[2020-10-30] MEDS ORDERED: D5W 1,000 ML IV ONE (02:23)
[2020-10-30 05:04] LABS: Absolute Lymphocytes (CBC) 0.7 K/uL (0.7-4.9); Hematocrit 26.7 % (39.6-49.0); MPV 8.7 fL (7.6-11.3); RBC Red Blood Cell Count 2.92 M/uL (4.33-5.43)
[2020-10-30 05:19] LABS: Albumin 2.6 g/dL (3.4-5.0); Bilirubin Total 0.3 mg/dL (0.2-1.0); Potassium 3.9 mmol/L (3.5-5.1); Protein, Total 5.3 g/dL (6.4-8.2)
--- NOTE | 2020-10-30 07:46 | P.CNS ---
Date of Consult: 10/30/20 Reason for Consult: metabolic acidemia, CKD stage 3/4. Requesting Physician: Shelby Womack Chief Complaint: Dizziness History of Present Illness: 84 y o male pt with hx of kidney cancer s/o nephrectomy who has a solitary lef kidney, hx of gastric cancer post prtial resection and who has had chronic diarrhea since procedure admitted for management of dizziness. he has had diarrhea for 2 days as per his and he also has been dizzy. he was brought to the ED for evaluation. 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 his bicarb was low at 17 on admission and his creatinine was 2.0. nephrology was consulted for management recommendation for his abnormal kidney function and metabolic acidemia. Allergies ciprofloxacin [From Cipro] Allergy (Severe, Verified 08/11/19 13:51) Anaphylaxis levofloxacin [From Levaquin] Allergy (Severe, Verified 08/11/19 13:51) Anaphylaxis Sulfa (Sulfonamide Ant Allergy (Uncoded 08/11/19 13:51) Unknown Home Medications: Metoprolol Succinate [Toprol Xl] 25 mg PO DAILY 12/15/11 Amitriptyline [Elavil*] 0.5 tab PO BEDTIME 03/11/18 Testost Cypionate [Depo-Testosterone*] 1 ml IM Q7D 03/11/18 Ferrous Sulfate [Iron] 325 mg PO DAILY 08/11/19 Naphazoline HCl/Pheniramine [Eye Allergy Relief Drops] 1 gtt OP DAILY 08/11/19 Rivastigmine Patch [Exelon 4.6 mg Patch] 1 each TD DAILY 08/11/19 - Past Medical/Surgical History Diabetic: No -: Hypertension -: Chronic renal disease -: History left nephrectomy secondary to renal cell carcinoma -: History aortic valve replacement-bovine -: Low testosterone -: gastric ulcers -: Left nephrectomy -: Aortic valve replacement -: partial stomach removal -: multiple back surgeries -: bilateral feet sx Psychosocial/ Personal History: The patient is of 64 years. He has 3 children. - Family History Mother Medical History: Cancer - Social History Smoking Status: Never smoker Alcohol use: No CD- Drugs: No Caffeine use: Yes Review of Systems General: Weakness, Malaise Eyes: Unremarkable ENT: Unremarkable Respiratory: Unremarkable Cardiovascular: Unremarkable Gastrointestinal: Diarrhea Genitourinary: Unremarkable Musculoskeletal: Unremarkable Neurological: Unremarkable Physical Examination Temp Pulse Resp BP Pulse Ox 97.6 F 65 16 120/86 100 10/30/20 04:00 10/30/20 04:00 10/30/20 04:00 10/30/20 04:00 10/30/20 04:00 General: Alert, Cachectic, Demented HEENT: Atraumatic, Normocephalic Neck: Supple Respiratory: Clear to auscultation bilaterally Cardiovascular: Normal pulses, Regular rate/rhythm Gastrointestinal: Soft and benign Neurological: Cranial nerves 3-12 intact Laboratory Data (last 24 hrs) 10/29/20 20:40: PT 9.9, INR 0.86 10/29/20 20:40: WBC 8.70, Hgb 10.2 L, Hct 30.3 L, Plt Count 211 10/29/20 20:40: Sodium 143, Potassium 3.8, BUN 40 H, Creatinine 2.09 H, Glucose 57 L, Magnesium 2.1, Total Bilirubin 0.2, AST 22, ALT 34, Alkaline Phosphatase 98 Conclusions/Impression: 1.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 we will obtain renal US and evaluate further with urine p/c. we will dose meds for eGFR and avoid nephrotoxin exposure. 2.Metabolic acidemia-deemed due to poor bicarb generation from poor kidney function and loss from GI loss due to diarrhea. we have started sodium bicarb for repletion. we will monitor closely. 3.Hypotension-IV fluid started for rehydration. we will monitor vitals closely. 4.Diarrhea-due to short bowel issues. we will hydrate and monitor closely.
[2020-10-30] MEDS ORDERED: HEPARIN 5000 UNIT/ML 1 ML VIAL ONE (07:51)
[2020-10-30] MEDS: HEPARIN 5000 UNIT/ML 1 ML VIAL SQ SCH ×2 (07:54→21:37)
[2020-10-30] MEDS: SODIUM BICARB 325 MG TAB PO SCH ×2 (09:00→21:00)
--- NOTE | 2020-10-30 09:00 | RAD REPORT ---
EXAM DESCRIPTION: Matthieu Single View10/29/2020 9:17 pm CLINICAL HISTORY: Abdominal pain and dizziness COMPARISON: 2018 FINDINGS: The lungs appear clear of acute infiltrate. The heart is normal size. Postsurgical change s involve the chest. Granuloma left lung IMPRESSION: No acute abnormalities displayed
--- NOTE | 2020-10-30 09:16 | RAD REPORT ---
EXAM DESCRIPTION: US - Renal Ultrasound-Complete - 10/30/2020 8:26 am CLINICAL HISTORY: Progressive chronic renal disease COMPARISON: October 29, 2020 cat scan FINDINGS: The right kidney measures 11 cm with an increased echotexture. Renal cysts. Largest measur es 2 centimeters Left nephrectomy Hydronephrosis is not seen. No gross abnormality of bladder is seen IMPRESSION: Markedly increased right renal echotexture consistent with chronic parenchymal disease
[2020-10-30] MEDS: D5 0.9 NS 1,000 ML IV SCH (09:45)
[2020-10-30] MEDS ORDERED: PNEUMOCOCCAL VACCINE 0.5 ML IMVAC ONE (10:00)
--- NOTE | 2020-10-30 13:04 | RAD REPORT ---
EXAM DESCRIPTION: CT - Abdomen Pelvis Wo Contrast - 10/30/2020 6:35 am CLINICAL HISTORY: Abd pain; Constipation TECHNIQUE: Contiguous axial images obtained through the abdomen and pelvis without IV contrast. Cr nal and sagittal reformatted images were provided. This exam was performed according to our departmental dose-optimization program, which includes autom ated exposure control, adjustment of the mA and/or kV according to patient size and/or use of iterati ve reconstruction technique. COMPARISON: None available for comparison. FINDINGS: Limitations: Unenhanced technique and artifact from lumbar and right hip hardware. Lung bases: Minimal bibasilar subsegmental atelectasis/pleural parenchymal scar. Prosthetic aortic va lve. Coronary artery calcification. Liver: Hepatic parenchymal calcifications compatible with remote granulomatous organism exposure. Gallbladder and biliary system: Prior cholecystectomy. Intrahepatic and extrahepatic biliary dilatati on. The common duct measures 10 mm in maximum diameter. Pancreas: Grossly unremarkable Spleen: Splenic parenchymal calcifications compatible with remote granulomatous organism exposure. Adrenals: Unremarkable Kidneys: Prior left nephrectomy. Multiple right renal cysts. No calculi. No hydronephrosis Bowel: Colonic diverticula without adjacent inflammatory change. No obstruction. No appreciable mucos al thickening. Appendix: The appendix is not definitively visualized. No findings to suggest acute appendicitis. Urinary bladder: Unremarkable Reproductive: Unremarkable as visualized Lymph nodes: No pathologically enlarged lymph nodes. Peritoneum: No focal fluid collection. No free air. Vessels: Mild to moderate atherosclerotic disease. No abdominal aortic aneurysm. Abdominal wall: Unremarkable Bones: Osseous structures are osteopenic. Multilevel spondylosis. Mild remote lower thoracic compress ion deformities. Intervertebral fusion extending from L1 through S1. Prior anterior and bilateral pos terior fusion at L3-S1. Right total hip arthroplasty hardware. IMPRESSION: 1. No bowel obstruction. 2. Multiple right renal cysts. Due to unenhanced technique and in combination with artifact from th e lumbar hardware, these lesions cannot be fully characterized. 3. Other findings as above. Electronically signed by: Robert Lee MD 10/29/2020 10:43 PM EXPERIMENTAL MECHANIC Due to temporary technical issues with the PACS/Fluency reporting system, reports are being signed by the in house radiologists without review as a courtesy to insure prompt reporting. The interpreting radiologist is fully responsible for the content of the report.
--- NOTE | 2020-10-30 13:16 | RAD REPORT ---
EXAM DESCRIPTION: CT - Head Brain Wo Cont - 10/30/2020 6:35 am CLINICAL HISTORY: DIZZINESS TECHNIQUE: Contiguous axial CT images obtained through the brain without IV contrast. Coronal and sa gittal reformatted images were provided. This exam was performed according to our departmental dose-optimization program, which includes autom ated exposure control, adjustment of the mA and/or kV according to patient size and/or use of iterati ve reconstruction technique. COMPARISON: 07/13/2020 FINDINGS: Brain: Mild to moderate cerebral atrophy, focal right anterior parietal encephalomalacia c ompatible with remote insult and mild bilateral periventricular and subcortical white matter low-atte nuation most compatible with chronic microvascular angiopathy without significant interval change. No focal mass effect. Barber-white matter differentiation is within normal limits. No hemorrhage. Ventricles: No ventriculomegaly or midline shift. Extra-axial spaces: No extra-axial collection or hemorrhage. Paranasal sinuses and mastoid air cells: Heterogeneous opacification of the left maxillary sinus with wall thickening similar to the prior compatible with chronic sinusitis. Vessels: There is atherosclerotic disease of the internal carotid arteries bilaterally. Bones: Unremarkable Soft tissues: Unremarkable IMPRESSION: 1. No acute hemorrhage, focal mass or large territory infarction. 2. Other findings as above. Electronically signed by: Robert Lee MD 10/29/2020 10:27 PM ENGINEERING COORDINATOR Due to temporary technical issues with the PACS/Fluency reporting system, reports are being signed by the in house radiologists without review as a courtesy to insure prompt reporting. The interpreting radiologist is fully responsible for the content of the report.
[2020-10-30] MEDS ORDERED: HYDROCORTISONE SUC 100 MG INJ IV ONE (17:00)
[2020-10-30] MEDS ORDERED: IPRATROPIUM BROM 0.5MG/2.5ML NEB ONE (17:00)
[2020-10-30] MEDS ORDERED: SCOPOLAMINE HYDROBROMIDE PATCH TD ONE (17:00)
[2020-10-30] MEDS: D5W 1,000 ML with NA BICARB 8.4% 50 MEQ IV SCH ×2 (17:59)
[2020-10-30] MEDS ORDERED: SODIUM CHLORIDE 0.9% 10ML INJ IV PRN (18:11)
[2020-10-30] MEDS ORDERED: PANTOPRAZOLE 40 MG INJ IVP ONE (19:00)
--- NOTE | 2020-10-30 23:59 | EKG ---
Test Date: 2020-10-29 Test Time: 20:42:35 Automotive Service Management Teacher: MOHINI MEASUREMENT RESULTS: Intervals: Rate: 70 FL: 188 QRSD: 130 QT: 404 QTc: 436 [place]: P: 62 FL: 188 QRS: -64 T: 44 INTERPRETIVE STATEMENTS: Normal sinus rhythm Right bundle branch block Left anterior fascicular block Bifascicular block Abnormal ECG Compared to ECG 03/11/2018 09:41:26 No significant changes Electronically Signed On 10-30-20 23:57:55 ATV MECHANIC by William Parra
[2020-10-31] MEDS ORDERED: MELATONIN 5 MG TABLET PO PRN (00:27)
[2020-10-31] MEDS ORDERED: HYDRALAZINE HCL 20 MG/ML VIAL IV PRN (00:28)
--- NOTE | 2020-10-31 02:21 | CON ---
Date of Consultation: 10/30/2020 Reason For Consultation: Elevated troponin. History Of Present Illness: Mr. Lucia is an 84-year-old, who has a history of dementia, bovine ao rtic valve replacement, hypertension, chronic renal disease, gastric cancer, small bowel obstruction. He is taking no medications at this point. He came in with dizziness, abdominal pain, constipation , dementia, diarrhea, shakiness, anemia, elevated troponin. No chest pain. No shortness of breath. No PND, orthopnea, pedal edema, palpitation, or syncope reported. Allergies: HE IS ALLERGIC TO CIPROFLOXACIN, LEVAQUIN, AND SULFA. Medications: At home are none. Review of Systems: Negative. Social History: Negative. Family History: Negative. Physical Examination: General: He did show sinus dementia. Vital Signs: Stable. Afebrile. HEENT: Negative. Neck: Supple without any bruit, lymphadenopathy, JVD, or thyromegaly. Chest: Clear to auscultation and percussion. Cardiac: Regular rhythm and rate with an aortic sclerosis murmur and a positive S4 gallops. No rubs . Abdomen: Benign. Extremities: No clubbing or cyanosis. He had trace edema. Diagnostic Data: EKG was nonspecific. Creatinine is 1.89. Hemoglobin is 8.7. Troponin is 0.77. H is BNP is 746. Impression And Plan: Elevated troponin secondary to demand ischemia from anemia. Echocardiogram is pending. Mr. Lucia is not a candidate for coronary intervention. We will continue his present me dical regimen as is. He needs to have his abdominal pain, constipation, diarrhea, dizziness, and ane ketan investigated. His blood pressure is well controlled. His dementia is chronic. His chronic carolyne l disease is stable. He has had a history of gastric cancer and small bowel obstruction. We will se e what the echo shows before making further decisions. NB/MODL Voice ID: [id number] Report ID: [id number]
--- NOTE | 2020-10-31 08:45 | P.PN ---
Subjective Date of Service: 10/30/20 Patient is having persistent nausea and vomiting. He has not been able to keep any of his food down. I have been watching him and whenever he takes a bite of his food he starts coughing persistently. The states he has been doing this at home. He does not have any evidence of aspiration on his x-ray. Patient will need modified swallow study and speech therapy. He looks like he has dysphasia and he will need swallowing evaluation. I do not believe that the family would want feeding tube placement so if he fails this then we may need to do comfort foods. Review of Systems is unable to be obtained Physical Examination - Vital Signs Temperature: 97.8 F Blood Pressure: 154/67 Pulse: 86 Respirations: 19 Pulse Ox (%): 97 - Physical Exam General: Alert, In no apparent distress, Demented HEENT: Atraumatic, PERRLA, EOMI Neck: Supple, JVD not distended Respiratory: Clear to auscultation bilaterally, Normal air movement Cardiovascular: Regular rate/rhythm, Normal S1 S2, Systolic murmur Gastrointestinal: Normal bowel sounds, Soft and benign, Non-distended, No tenderness Musculoskeletal: No clubbing, No swelling, No tenderness Neurological: Normal strength at 5/5 x4 extr, Sensation intact, Cranial nerves 3-12 intact - Studies Medications List Reviewed: Yes Assessment & Plan - Problems (Diagnosis) (1) Dysphagia Current Visit: Yes Status: Acute (2) Nausea and vomiting Current Visit: Yes Status: Acute (3) Dementia Current Visit: Yes Status: Acute (4) Chronic renal disease Onset Date: 03/12/18 Current Visit: No Status: Chronic Qualifiers: Chronic kidney disease stage: stage 3 (moderate) (5) H/O aortic valve replacement Current Visit: No Status: Chronic - Plan Plan: 1. Speech therapy evaluation 2. Modified swallow study 3. Anti emetics 4. NPO for now 5. Gentle hydration 6. Continue cardiac meds 7. GI and DVT prophylaxis Discharge Plan: Home Plan to discharge in: Greater than 2 days - Advance Directives Does patient have a Living Will: No Does patient have a Durable POA for Healthcare: No - Code Status/Comfort Care Code Status Assessed: Yes Code Status: Full Code Critical Care: No Time Spent Managing PTS Care (In Minutes): 35
[2020-10-31] MEDS: PANTOPRAZOLE 40 MG INJ IVP SCH ×2 (09:00→20:15)
[2020-10-31] MEDS: HEPARIN 5000 UNIT/ML 1 ML VIAL SQ SCH ×2 (09:00→20:16)
[2020-10-31] MEDS: SODIUM BICARB 325 MG TAB PO SCH ×2 (09:00→20:16)
--- NOTE | 2020-10-31 09:06 | PN ---
Date of Progress Note: 10/31/2020 Subjective: Mr. Lucia has came in with dizziness and dementia, troponin was elevated. He was hyp otensive. Today he is not dizzy. His blood pressure has improved. Echocardiogram was not done abiola use the patient was not cooperative yesterday. Denies any chest pain. There was no evidence of arrh ythmia on telemetry. He remained afebrile. We will continue to follow him on an as-needed basis. W princess will see what the echocardiogram shows. No change in medical therapy for now, although I suggested stopping his Flomax. NB/MODL Voice ID: [id number] Report ID: [id number]
--- NOTE | 2020-10-31 09:41 | P.PN ---
Subjective Date of Service: 10/31/20 Chief Complaint: Dizziness Subjective: No new changes Physical Examination - Vital Signs Temperature: 97.8 F Blood Pressure: 154/67 Pulse: 86 Respirations: 19 Pulse Ox (%): 97 - Physical Exam General: Alert HEENT: Atraumatic, Normocephalic Neck: Supple Respiratory: Clear to auscultation bilaterally Cardiovascular: Normal pulses, Regular rate/rhythm, Normal S1 S2 Gastrointestinal: Soft and benign Musculoskeletal: No swelling Neurological: Normal strength at 5/5 x4 extr, Cranial nerves 3-12 intact - Studies Medications List Reviewed: Yes Assessment And Plan - Plan 1.CKD stage 3/4- Creatinine is still elevated as per last lab, awaiting repeat labs today. voiding well. renal US confirms left nephrectomy and echogenic right kidney. we will follow trend of renal function. we will dose meds for eGFR and avoid nephrotoxin exposure. 2.Metabolic acidemia-deemed due to poor bicarb generation from poor kidney function and loss from GI loss due to diarrhea. we have started sodium bicarb for repletion. we will monitor closely. 3.Hypotension-resolved. BP now in hypertensive range. we will monitor vitals closely. 4.Diarrhea-due to short bowel issues. we will hydrate and monitor closely. Physician Review Additional Text: # Dizziness-may be due to increase/loose bowel movements from short bowel syndrome with superimposed Exelon use for dementia -possibility of increase cholinergic activation suspected - will Dc Exelon patch -start gentle IV fluid -present of non-anion gap metabolic acidosis likely consistent with increased diarrhea as well as physical exam of patient having watery diarrhea in diaper # ELEVATED TROPONIN-may be demand mediated, follow trend Will consult Cardiology Hypertension-controlled, follow orthostatics vitals Dementia-stable Teresa bryan CKD stage 3-stable creatinine at 2.3 Metabolic acidosis-Renal consult, start sodium bicarb -likely due to GI loss DVT prophylaxis-subcutaneous heparin Advanced directive-discussed with , she wishes trial full code
[2020-10-31 12:48] LABS: Potassium 3.8 mmol/L (3.5-5.1)
--- NOTE | 2020-10-31 15:12 | RAD REPORT ---
EXAM DESCRIPTION: RAD - Barium Swallow Modified - 10/31/2020 2:47 pm CLINICAL HISTORY: dysphagia COMPARISON: Renal Ultrasound-Complete dated 10/30/2020 TECHNIQUE: The patient was given liquid, semi-solid and solid forms of barium. Lateral view fluorosc opic imaging was performed in conjunction with speech pathology service. FINDINGS: Laryngeal penetration: not cleared Aspiration: no cough Pharyngeal residue: Vallecular, pyriform, posterior wall, severe with all consistencies severe swallow delay, 5+ seconds Total fluoroscopy time: 3 minutes and 23 seconds
[2020-10-31] MEDS: D5W 1,000 ML with NA BICARB 8.4% 50 MEQ IV SCH ×2 (18:59)
[2020-11-01 04:43] VITALS: O2SAT 99
[2020-11-01] MEDS: HEPARIN 5000 UNIT/ML 1 ML VIAL SQ SCH (09:00)
[2020-11-01] MEDS ORDERED: METOPROLOL XL 25 MG TAB PO SCH (09:00)
[2020-11-01] MEDS: PANTOPRAZOLE 40 MG INJ IVP SCH (09:00)
[2020-11-01] MEDS: SODIUM BICARB 325 MG TAB PO SCH (09:00)
--- NOTE | 2020-11-01 09:13 | ECHO ---
HEIGHT: 5 ft 4 in WEIGHT: 122 lb 0 oz DATE OF STUDY: 10/31/[address]: William Parra MD 2-DIMENSIONAL: YES M.MODE: YES DOPPLER: YES COLOR FLOW: YES TDS: YES PORTABLE: NO DEFINITY: NO BUBBLE STUDY: NO DIAGNOSIS: CHEST PAIN CARDIAC HISTORY: CATHERIZATION: YES SURGERY: NO PROSTHETIC VALVE: YES PACEMAKER: NO MEASUREMENTS (cm) DIASTOLIC (NORMALS) SYSTOLIC (NORMALS) IVSd 0.9 (0.6-1.2) LA Diam 2.9 (1.9-4.0) LVEF 85% LVIDd 3.3 (3.5-5.7) LVIDs 1.6 (2.0-3.5) %FS 53% LVPWd 0.9 (0.6-1.2) Ao Diam 2.2 (2.0-3.7) 2 DIMENSIONAL ASSESSMENT: RIGHT ATRIUM: NORMAL LEFT ATRIUM: NORMAL RIGHT VENTRICLE: NORMAL LEFT VENTRICLE: NORMAL TRICUSPID VALVE: NORMAL MITRAL VALVE: MITRAL ANNULAR CALCIFICATION PULMONIC VALVE: NORMAL AORTIC VALVE: NORMAL PERICARDIAL EFFUSION: NONE AORTIC ROOT: NORMAL LEFT VENTRICULAR WALL MOTION: NORMAL DOPPLER/COLOR FLOW: NORMAL COMMENTS: NORMAL BIOPROSTHETIC AORTIC VALVE REPLACEMENT. NORMAL LEFT VENTRICULAR SIZE AND FUNCTION. MITRAL ANNULAR CALCIFICATION. TECHNOLOGIST: Niesha BOLAND
[2020-11-01] MEDS: D5W 1,000 ML with NA BICARB 8.4% 50 MEQ IV SCH ×2 (11:00)
--- NOTE | 2020-11-01 11:01 | P.PN ---
Subjective Date of Service: 11/01/20 Chief Complaint: Dizziness Subjective: Improving Physical Examination - Vital Signs Temperature: 98 F Blood Pressure: 125/80 Pulse: 76 Respirations: 20 Pulse Ox (%): 99 - Physical Exam General: Alert, In no apparent distress, Cooperative HEENT: Atraumatic, Normocephalic Neck: Supple Respiratory: Clear to auscultation bilaterally Cardiovascular: No edema, Regular rate/rhythm, Normal S1 S2 Gastrointestinal: Soft and benign Neurological: Normal speech, Normal strength at 5/5 x4 extr, Cranial nerves 3-12 intact - Studies Medications List Reviewed: Yes Assessment And Plan - Plan 1.CKD stage 3/4- Creatinine is still elevated at 2.25 yesterday. we will repeat labs in am. voiding well. renal US confirms left nephrectomy and echogenic right kidney. we will follow trend of renal function. we will dose meds for eGFR and avoid nephrotoxin exposure. 2.Metabolic acidemia-deemed due to poor bicarb generation from poor kidney function and loss from GI loss due to diarrhea. we have started sodium bicarb for repletion via IV fluid. we will monitor closely. 3.Hypotension-resolved. BP reads are stable. we will monitor vitals closely. 4.Diarrhea-Improved. deemed due to short bowel issues. we will hydrate and m onitor closely. Physician Review: Patient Assessed, Agree with Above Assessment and Plan
--- NOTE | 2020-11-01 13:16 | P.PN ---
Date of Service: 10/31/20 Subjective I had a long conversation with patient's after swallow study results. She no longer wants aggressive measures and wants to make sure he is comfortable. She does not want have a feeding tube that she spoke with 1 of her friends that her children and they do not think gets really going to help his quality of life. She does want him to continue to do well up until February when they get her 67th a wedding anniversary. She is very sad that his swallowing has worsened. She stated a week ago they were eating burgers. They do have room daily regimen were in the morning day drink tea together. She is worried she will miss that as well. Overall she does understand that his prognosis is poor and his dementia has worsened. He is entering into the ill last stages of the fast stage of dementia. He is probably stage 6D. Review of Systems is unable to be obtained Physical Examination - Vital Signs reviewed - Physical Exam General: Alert, In no apparent distress, Demented Respiratory: Clear to auscultation bilaterally, Normal air movement Cardiovascular: Regular rate/rhythm, Normal S1 S2, Systolic murmur Gastrointestinal: Normal bowel sounds, Soft and benign, Non-distended, No tenderness Musculoskeletal: No clubbing, No swelling, No tenderness Neurological: Normal strength at 5/5 x4 extr, Sensation intact, Cranial nerves 3-12 intact Assessment & Plan - Problems (Diagnosis) (1) Dysphagia Current Visit: Yes Status: Acute (2) Nausea and vomiting Current Visit: Yes Status: Acute (3) Dementia Current Visit: Yes Status: Acute (4) Chronic renal disease Onset Date: 03/12/18 Current Visit: No Status: Chronic Qualifiers: Chronic kidney disease stage: stage 3 (moderate) (5) H/O aortic valve replacement Current Visit: No Status: Chronic - Plan 1. Hospice arrangements. Continue with gentle hydration until hospice arrangements are completed. Continue with antibiotic at discharge. Comfort foods as tolerated.
--- NOTE | 2020-11-01 13:36 | PN ---
Date of Progress Note: 11/01/2020 Reason For Consultation: Elevated BUN and creatinine Subjective: The patient was admitted with acute kidney injury secondary to poor intake. Physical Examination: Vital Signs: Blood pressure 125/80, pulse of 76, afebrile. Chest: Clear to auscultation. Heart: S1, S2. Systolic murmur. Abdomen: Soft, nontender. Extremity: No edema. Neuro: Alert. No focality. Laboratory Data: WBC 6.1, H and H 8.7/26.7. Sodium 142, potassium 3.8, bicarb 19, BUN 39, creatinine 2.2, calcium of 10. Current Medications: The patient on include; 1. Metoprolol 25. 2. IV fluid. 3. Pantoprazole. 4. Zofran. Assessment And Plan: 1. Acute kidney injury secondary to prerenal, poor intake. Continue hydration. 2. Hypertension, controlled, optimal. Keep holding all blood pressure medications, except metoprolol for rate control. 3. Acidosis secondary to renal failure. Continue oral bicarb. 4. Failure to thrive. Continue supportive care. The patient is going to be on hospice care. We will sign off. Please call us as needed if condition has been changed. Time spent discussing with the patient, examining the patient, exam [id number], placing order, discussing with staff and other consulting include Primary 45 minutes. HERMAN Voice ID: [id number] Report ID: [id number] MIMI
[2020-11-01 18:06] VITALS: BP 121/58; TEMP 98
--- NOTE | 2020-11-20 02:12 | P.DS ---
Discharge Date: 11/01/20 Disposition: HOSPICE-HOME Discharge Condition: FAIR Reason for Admission: Dizziness - Problems (1) Dysphagia Status: Acute (2) Nausea and vomiting Status: Acute (3) Dementia Status: Acute (4) Chronic renal disease Onset Date: 03/12/18 Status: Chronic Qualifiers: Chronic kidney disease stage: stage 3 (moderate) (5) H/O aortic valve replacement Status: Chronic Brief History of Present Illness: Patient is an 84-year-old male with history of hypertension,dementia, chronic kidney disease stage 3 with baseline creatinine of 2.3-2.5, history of gastric r esection for gastric cancer with 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 is primary caregiver states he has had 2 episodes of these shakiness that last for about 5 min since the last 1 week. She denies symptoms related to seizure although she reports he has had 1 episode of seizure before in setting of Levaquin use 5 years ago. She states he was allowed town for an talking with her during this episode of check cane. She has brought in to the ED because of the complain of dizziness. In the ED had borderline low blood pressure was noted with mild elevated troponin of 0.77. Patient is at although poor historian, is at bedside is providing history. They both denies patient having any chest pain or shortness of breath.. Hospital Course: Patient has some renal dysfunction and also concern for seizure disorder. Family med and because of patient's dementia and progressive renal failure they decided to proceed with hospice care. Patient will have arrangements to hospice care. Vital Signs/Physical Exam: Temp Pulse Resp BP Pulse Ox 98 F 63 20 121/58 L 99 11/01/20 16:00 11/01/20 16:00 11/01/20 16:00 11/01/20 16:00 11/01/20 16:00 General: Alert, Oriented x1, Demented Laboratory Data at Discharge: WBC 6.10 K/uL (4.3-10.9) D 10/30/20 04:00 Hgb 8.7 g/dL (13.6-17.9) L 10/30/20 04:00 Hct 26.7 % (39.6-49.0) L 10/30/20 04:00 Plt Count 165 K/uL (152-406) D 10/30/20 04:00 PT 9.9 SECONDS (9.5-12.5) 10/29/20 20:40 INR 0.86 10/29/20 20:40 Sodium 142 mmol/L (136-145) 10/31/20 12:02 Potassium 3.8 mmol/L (3.5-5.1) 10/31/20 12:02 BUN 39 mg/dL (7-18) H 10/31/20 12:02 Creatinine 2.25 mg/dL (0.55-1.3) H 10/31/20 12:02 Glucose 123 mg/dL (74-106) H 10/31/20 12:02 Magnesium 2.0 mg/dL (1.8-2.4) 10/30/20 10:23 Total Bilirubin 0.3 mg/dL (0.2-1.0) 10/30/20 04:00 AST 18 U/L (15-37) 10/30/20 04:00 ALT 27 U/L (12-78) 10/30/20 04:00 Alkaline Phosphatase 79 U/L (45-117) 10/30/20 04:00 Troponin I 0.51 ng/mL (0.0-0.045) H* 10/30/20 04:00 Home Medications: Metoprolol Succinate [Toprol Xl] 25 mg PO DAILY 12/15/11 Amitriptyline [Elavil*] 0.5 tab PO BEDTIME 03/11/18 Testost Cypionate [Depo-Testosterone*] 1 ml IM Q7D 03/11/18 Ferrous Sulfate [Iron] 325 mg PO DAILY 08/11/19 Naphazoline HCl/Pheniramine [Eye Allergy Relief Drops] 1 gtt OP DAILY PRN 08/11/19 Rivastigmine Patch [Exelon 4.6 mg Patch*] 1 each TD DAILY 08/11/19 Amox Tr/Potassium Clavulanate [Augmentin 250-62.5 Tab Chew] 2 each PO DAILY #14 tab.chew 11/01/20 New Medications: Amox Tr/Potassium Clavulanate [Augmentin 250-62.5 Tab Chew] 2 each PO DAILY #14 tab.chew Physician Discharge Instructions: OK TO DC IV AND DC HOME to home hospice FOLLOW-UP WITH PRIMARY CARE PROVIDER IN 1-[address] or TEXT [address] FERREIRA AT [phone] IF ANY QUESTIONS REGARDING HOSPITAL STAY. PLEASE CALL THE FLOOR AT [phone] IF ANY MEDICATION OR NURSING QUESTIONS. Diet: Regular (Pureed diet with honey thick liquids) Activity: Fall precautions Followup: Unknown,U [Primary Care Provider] - Time spent managing pt's care (in minutes): 35
== END 2020-11-01 17:21 | disposition hospice, home (50) | DRG 392 ==
LOC: ER 20:27 → ERHOLD 23:51 → 2ND 10-30 09:14 → OBSVTOIN 10-31 11:14
PROVIDERS: ADMIT Internal Medicine; ATTEND Hospitalist
DX: K52.9 Noninfective gastroenteritis and colitis, unspecified (principal); E87.2 Acidosis; R64 Cachexia; I24.8 Other forms of acute ischemic heart disease; N17.9 Acute kidney failure, unspecified; N18.4 Chronic kidney disease, stage 4 (severe); I12.9 Hypertensive chronic kidney disease with stage 1 through stage 4 chronic kidney disease, or unspecified chronic kidney disease; D64.9 Anemia, unspecified; F03.90 Unspecified dementia, unspecified severity, without behavioral disturbance, psychotic disturbance, mood disturbance, and anxiety; I95.9 Hypotension, unspecified; R13.10 Dysphagia, unspecified; R62.7 Adult failure to thrive; R77.8 Other specified abnormalities of plasma proteins; Z88.1 Allergy status to other antibiotic agents; Z85.528 Personal history of other malignant neoplasm of kidney; Z90.49 Acquired absence of other specified parts of digestive tract; Z68.20 Body mass index [BMI] 20.0-20.9, adult; Z95.2 Presence of prosthetic heart valve; Z79.899 Other long term (current) drug therapy; Z20.822 Contact with and (suspected) exposure to COVID-19
CPT/HCPCS: 36415; 70450; 71045; 74176; 74230; 76770; 80048; 80053; 80076; 83735; 83880; 84484; 85025; 85610; 92611; 93005; 93306; 96372; 99285; C9113; G0378; J0360; J1644; J1650; J1720; J7040; U0003